=== PATIENT | female | born 1950 | race Caucasian/White ===

== ENCOUNTER 2019-05-03 16:07 | Emergency (ER) | payer MEDICARE, OTHER, SELFPAY ==
[2019-05-03] VITALS (8 sets, daily range): BP systolic 141–188; BP diastolic 75–102; PULSE 55–79; RESP 18–20; TEMP 36.7; O2SAT 91–96
--- NOTE | ~2019-05-03 | XR_ITS ---
EXAMINATION: XR chest 1V portable DATE: 05/03/2019 16:32 INDICATION: Analyzed chest pain with pain across the back. TECHNIQUE: frontal view of the chest was obtained. COMPARISON: Chest radiograph dated 11/24/[address] dated 10/19/2017 FINDINGS: Patient is rotated slightly towards the right. Unchanged mild linear lingular discoid atelectasis/sca rring at the left lower lung zone. No new airspace opacities, pulmonary edema, pleural effusion or pn eumothorax. The cardiomediastinal silhouette is normal. Mild bilateral acromioclavicular osteoarthrit is. IMPRESSION: 1. Chronic mild lingular atelectasis/scarring. Reviewed, dictated and finalized at location A. 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
--- NOTE | 2019-05-03 16:21 | ECG_ITS ---
Measurements Intervals [place] Rate: 56 P: 63 VT: 156 QRS: 57 QRSD: 104 T: 57 QT: 423 QTc: 408 Interpretive Statements SINUS BRADYCARDIA BASELINE ARTIFACT- I, II, III, AVR, AVL, AVF, V1 BORDERLINE ECG Electronically Signed On 05-03-2019 17:06:10 [employer] SHOP MECHANIC by Leonard Van D.O.
[2019-05-03 16:42] LABS: Basophils Absolute Auto 0.01 K/mm3 (0.00-0.10); Basophils Percent Auto 0.3 % (0.0-1.0); Eosinophils Absolute Auto 0.14 K/mm3 (0.02-0.50); Eosinophils Percent Auto 3.9 % (1.0-6.0); Hemoglobin 10.5 g/dL (11.7-13.8); Immature Granulocyte Absolute 0.01 K/mm3 (0.00-0.00); Immature Granulocyte Percent A 0.3 % (0.0-0.0); Lymphocytes Absolute Auto 0.94 K/mm3 (1.10-4.50); Lymphocytes Percent Auto 26.4 % (18.0-42.0); Mean Corpuscular HGB Conc 30.9 g/dL (32.0-36.0); Mean Corpuscular Hemoglobin 25.5 pg (27.0-31.0); Mean Corpuscular Volume 82.5 fL (78.0-102.0); Mean Platelet Volume 10.9 fl (9.2-11.8); Monocytes Absolute Auto 0.31 K/mm3 (0.10-0.90); Monocytes Percent Auto 8.7 % (2.0-11.0); Neutrophils Absolute Auto 2.2 K/mm3 (1.7-7.2); Neutrophils Percent Auto 60.4 % (50.0-70.0); Platelet Count Result 187 K/mm3 (150-420); Red Blood Count 4.12 M/mm3 (4.20-5.40); Red Cell Distribution Width 15.1 % (11.6-14.4); White Blood Count 3.6 K/mm3 (4.8-10.8)
[2019-05-03 16:53] LABS: Partial Thromboplastin Time 26.6 SEC (22.3-31.6)
[2019-05-03 16:58] LABS: Alanine Aminotransferase 10 U/L (14-59); Albumin Level 3.5 g/dL (3.4-5.0); Alkaline Phosphatase 99 U/L (46-116); Aspartate Amino Transferase 14 U/L (15-37); Bilirubin,Total 0.1 mg/dL (0.00-1.00); Blood Urea Nitrogen 14 mg/dL (7-18); Calcium 8.6 mg/dL (8.5-10.1); Carbon Dioxide 29 mmol/L (21-32); Chloride 104 mmol/L (98-108); Estimated Glomerular Filt Rate 40; Glucose 95 mg/dL (70-99); Osmolality Calculated 294 mOsm/kg (285-295); Sodium 142 mmol/L (136-145); Total Protein 7.9 g/dL (6.4-8.2)
[2019-05-03] MEDS: ASPIRIN 81 MG CHEWABLE TABLET 324 MG PO (17:02)
--- NOTE | 2019-05-03 17:11 | ED.CHESTPAIN ---
HPI - Chest Pain General Chief Complaint: Chest Pain Stated Complaint: headache, chest pain,pain across back Time Seen by Provider: 05/03/19 16:40 Source: patient Mode of arrival: ambulatory Limitations: no limitations History of Present Illness HPI narrative: Claudia is a 70-year-old female patient. She presents ambulatory to the emergency room. She states that she has had substernal chest pain since 3:30 p.m.. The pain radiates to the back and to the left shoulder. She describes it as a pressure type of pain. She rates the pain at 7/10. She has history of hypertension. She has no history of previous NM. No history of stroke in the past. She does not have diabetes mellitus. She is not a smoker. No history of cough or fever. No history of nausea vomiting diarrhea. No history abdominal pain. MD complaint: chest pain Pertinent past history: other ( Hypertension) Onset (ago): hour(s) ( started at 3:30 p.m.) Timing of current episode: constant and still present Onset: during rest Pain location: substernal Pain radiation: left shoulder and other ( radiates to the back also) Severity: moderate Pain scale (0-10): 7 Quality: other ( feeling of pressure) Relieving factors: nothing Exacerbating factors: nothing Context: other ( none) Associated symptoms: other ( no history of fever. No history of nausea or vomiting. No abdominal pain. No cough.) Treatment prior to arrival: none Risk Factors Coronary artery disease risk factors: hypertension Thoracic aortic dissection risk factors: longstanding hypertension Related Data Home Medications Medication Instructions Recorded Confirmed alprazolam 1 mg PO PRN PRN 02/27/19 02/27/19 cholestyramine (with sugar) 4 g PO DAILY 02/27/19 02/27/19 doxazosin 8 mg PO DAILY 02/27/19 02/27/19 furosemide 40 mg PO DAILY 02/27/19 02/27/19 lisinopril 40 mg PO DAILY 02/27/19 02/27/19 metoprolol tartrate 100 mg PO BID 02/27/19 02/27/19 nortriptyline 25 mg PO DAILY 02/27/19 02/27/19 omeprazole 20 mg PO DAILY 02/27/19 02/27/19 trazodone 100 mg PO HS 02/27/19 02/27/19 aspirin 81 mg PO DAILY 05/03/19 05/03/19 Allergies Allergy/AdvReac Type Severity Reaction Status Date / Time prednisone AdvReac Mild Jittery Verified 10/19/17 03:54 duloxetine AdvReac Unknown Diarrhea Verified 10/19/17 03:54 Penicillins AdvReac Unknown Verified 10/19/17 03:54 rosuvastatin AdvReac Unknown Muscle Verified 10/19/17 03:54 Spasms all steriods Allergy Unknown Uncoded 09/01/16 20:07 ATORVASTATIN CALCIUM AdvReac Unknown Muscle Uncoded 10/19/17 03:54 Spasms Review of Systems Review of Systems: All systems reviewed & are unremarkable except as noted in HPI and below Constitutional: Constitutional: Reports as per HPI, Reports no additional constitutional complaints, Denies chills and Denies fever(s) Eyes: Eyes: Reports as per HPI, Reports no additional eye complaints and Denies photophobia ENT: Reports system reviewed and no additional complaints, except as documented, Denies dysphagia, Denies vertigo, Denies dizziness, Denies nasal congestion and Denies sore throat Cardiovascular: Cardiovascular: Reports as per HPI, Reports chest pain and Reports radiating jaw, neck or arm pain Respiratory: Respiratory: Reports as per HPI, Denies cough and Denies dyspnea Gastrointestinal: Gastrointestinal: Reports as per HPI, Denies abdominal pain, Denies diarrhea, Denies nausea and Denies vomiting Genitourinary: Genitourinary: Reports no additional female genitourinary complaints, Denies hematuria and Denies dysuria Musculoskeletal: Musculoskeletal: Reports no additional musculoskeletal complaints Comments: no back pain as such. The chest pain radiates to the Integumentary/Breasts: Skin/Breast: Reports system reviewed and no additional complaints, except as docu, Denies erythema and Denies rash Neurologic: Reports system reviewed and no additional complaints, except as documented, Denies vertigo, Denies dizziness, Denies s
[2019-05-03] MEDS: NITROGLYCERIN SL 0.4 MG TABLET SUBLINGUAL (17:12)
--- NOTE | 2019-05-03 17:12 | PC.NURSE ---
BP 161/91, HR 62, CP 6/10. NTG SL given now.
--- NOTE | 2019-05-03 17:15 | PC.NURSE ---
In to re-eval pt prior to second NTG tab admin. Pt states she now has chest tightness in the L lower chest/breast, dizziness, and TANG. BP repeated with decrease from 161/91 to 135/83. Dr Tracey aware. Additional NTG held at this time.
[2019-05-03 17:20] LABS: Prothrombin Time 10.4 Seconds (9.64-11.0)
[2019-05-03 17:21] LABS: Creatine Kinase 65 U/L (26-192)
[2019-05-03 17:22] LABS: Troponin I < 0.02 ng/mL (0.00-0.056)
--- NOTE | 2019-05-03 18:12 | PC.NURSE ---
Dr Tracey in to speak with pt re: plan for repeat troponin in 2 hours. Pt verbalizes understanding, requesting food at this time. Dinner tray ordered.
--- NOTE | 2019-05-03 18:23 | PC.NURSE ---
Pt currently pain free. Dinner tray provided.
--- NOTE | 2019-05-03 19:51 | PC.NURSE ---
Pt amb to bathroom and back to room with steady gait. Repeat troponin drawn by labor operator. Pt remains pain free at this time.
[2019-05-03 20:14] LABS: Troponin I < 0.02 ng/mL (0.00-0.056)
== END 2019-05-03 20:45 | disposition home or self-care (01) ==
PROVIDERS: Emergency Provider Surgery; PCP Family Medicine Adolescent Medicine
DX: R07.9 Chest pain, unspecified (principal); J44.9 Chronic obstructive pulmonary disease, unspecified; M19.90 Unspecified osteoarthritis, unspecified site; K21.9 Gastro-esophageal reflux disease without esophagitis; I10 Essential (primary) hypertension
CPT/HCPCS: 36415; 71045; 80053; 82550; 82553; 84484; 85025; 85610; 85730; 93005; 99284; A9270

== ENCOUNTER 2019-09-07 13:11 | Outpatient (CLI) | payer MEDICARE, OTHER, SELFPAY ==
--- NOTE | ~2019-09-07 | XR_ITS ---
EXAMINATION: XR hip BI 2V w AP pelvis DATE: 09/07/2019 13:54 INDICATION: Unspecified osteoarthritis, unspecified site. TECHNIQUE: An anteroposterior view of the pelvis and 2 views of each hip were obtained. COMPARISON: CT abdomen and pelvis 10/19/2017 FINDINGS: Bone alignment is normal. No fracture. There is severe right hip osteoarthritis and moderat e left hip osteoarthritis. There is severe lumbar spondylosis. A surgical clip overlies right abdomen . IMPRESSION: 1. Severe right hip osteoarthritis and moderate left hip osteoarthritis. Reviewed, dictated and finalized at location E.
--- NOTE | ~2019-09-07 | XR_ITS ---
EXAMINATION: XR knee LT 3V DATE: 09/07/2019 13:54 INDICATION: Unspecified osteoarthritis, unspecified site. TECHNIQUE: 3 views of left knee were obtained. COMPARISON: Left knee radiographs 12/24/2007 FINDINGS: Bone alignment is normal. No fracture. There is mild tricompartmental osteoarthritis. No kn ee joint effusion. IMPRESSION: 1. Mild left knee osteoarthritis. Reviewed, dictated and finalized at location E.
--- NOTE | ~2019-09-07 | XR_ITS ---
EXAMINATION: XR foot LT standing 2V EXAM DATE: 09/07/2019 13:54 INDICATION: Osteoarthritis. TECHNIQUE: Frontal and lateral projections of the left foot. There is no prior study for comparison . Correlation was made with contralateral foot same date. FINDINGS: There is mild left hallux valgus. There is mild polyarticular midfoot primary osteoarthrit is. There are no bony erosions identified. There are no acute fractures or dislocations identified. There is no subcutaneous gas. The soft tissue is unremarkable. There are no radiopaque foreign isaias dies. IMPRESSION: 1. Mild polyarticular midfoot osteoarthritis. 2. Mild left hallux valgus. Reviewed, dictated and finalized at location A.
--- NOTE | ~2019-09-07 | XR_ITS ---
EXAMINATION: XR foot RT standing 2V EXAM DATE: 09/07/2019 13:54 INDICATION: Osteoarthritis. TECHNIQUE: Frontal and lateral projections of the right foot. Comparison is made to prior examinatio n from 08/20/2017. FINDINGS: Mild right hallux valgus. There is mild polyarticular midfoot primary osteoarthritis. Ther e are no bony erosions identified. There are no acute fractures or dislocations identified. There is no subcutaneous gas. The soft tissue is unremarkable. There are no radiopaque foreign bodies. IMPRESSION: 1. Mild right mid foot polyarticular osteoarthritis. 2. Mild hallux valgus. Reviewed, dictated and finalized at location A.
--- NOTE | ~2019-09-07 | XR_ITS ---
EXAMINATION: XR hand BI arthritis min 3V EXAM DATE: 09/07/2019 13:54 INDICATION: Osteoarthritis. TECHNIQUE: Right hand frontal, lateral and oblique projections obtained and reviewed. Left hand fron nicole, lateral and oblique projections obtained and reviewed. Catchers projection of both hands. There is no prior study for comparison. FINDINGS: Right hand: There is mild 1st interphalangeal, 2nd distal interphalangeal primary osteoarthritis. Th ere are no bony erosions identified. There are no acute fractures or dislocations identified. There is no subcutaneous gas. The soft tissue is unremarkable. There are no radiopaque foreign bodies. Left hand: There is mild 1st interphalangeal primary osteoarthritis. There are no bony erosions iden tified. There are no acute fractures or dislocations identified. There is no subcutaneous gas. The soft tissue is unremarkable. There are no radiopaque foreign bodies. IMPRESSION: Mild interphalangeal osteoarthritis. Reviewed, dictated and finalized at location A.
--- NOTE | ~2019-09-07 | XR_ITS ---
EXAMINATION: XR knee RT 3V DATE: 09/07/2019 13:54 INDICATION: Unspecified osteoarthritis, unspecified site. TECHNIQUE: 3 views of right knee were obtained. COMPARISON: Right knee radiographs 11/19/2018 FINDINGS: There is lateral subluxation of patella. No fracture. There is mild osteoarthritis of media l and lateral compartments and moderate osteoarthritis of patellofemoral compartment. There is a mode rate-sized knee joint effusion. IMPRESSION: 1. Moderate right knee osteoarthritis. 2. Moderate-sized right knee joint effusion. Reviewed, dictated and finalized at location E.
[2019-09-07 14:33] LABS: Alanine Aminotransferase 10 U/L (4-35); Albumin Level 4.3 g/dL (3.5-5.1); Alkaline Phosphatase 115 U/L (38-126); Aspartate Amino Transferase 26 U/L (14-36); Bilirubin,Total 0.3 mg/dL (0.2-1.3); Blood Urea Nitrogen 17 mg/dL (7-17); CRP 1.3 mg/dL (<1.0); Calcium 8.4 mg/dL (8.4-10.2); Carbon Dioxide 33 mmol/L (22-30); Chloride 97 mmol/L (98-107); Estimated Glomerular Filt Rate 49; Glucose 105 mg/dL (65-105); Potassium 3.4 mmol/L (3.4-5.0); Sodium 139 mmol/L (137-145); Uric Acid 7.7 mg/dL (2.5-7.5)
[2019-09-07 14:34] LABS: Rheumatoid Factor < 8.6 IU/ML (<12)
[2019-09-07 14:35] LABS: Basophils Percent Auto 0.5 % (0.2-1.2); Eosinophils Absolute Auto 0.1 K/mm3 (0-0.3); Eosinophils Percent Auto 2.9 % (0-4.4); Hematocrit 34.9 % (37.0-47.0); Hemoglobin 10.9 g/dL (12.0-15.0); Immature Granulocyte Absolute 0.01 K/mm3 (0.00-0.031); Immature Granulocyte Percent A 0.2 % (0-0.5); Lymphocytes Absolute Auto 1.26 K/mm3 (0.9-3.2); Lymphocytes Percent Auto 30.7 % (18.3-44.2); Mean Corpuscular HGB Conc 31.2 g/dl (32-36); Mean Corpuscular Hemoglobin 26.4 pg (26-34); Mean Corpuscular Volume 84.5 fl (80-100); Mean Platelet Volume 10.6 fl (7.4-10.4); Monocytes Absolute Auto 0.3 K/mm3 (0.1-0.6); Monocytes Percent Auto 6.8 % (2.6-8.5); Neutrophils Absolute Auto 2.4 K/mm3 (1.3-6.7); Neutrophils Percent Auto 58.9 % (45.5-73.1); Platelet Count Result 178 k/mm3 (150-375); Red Blood Count 4.13 M/mm3 (4.2-5.4); Red Cell Distribution Width 13.7 % (11.5-14.5); White Blood Count 4.1 K/mm3 (4.5-10.0)
[2019-09-07 14:40] LABS: Add Urine Microscopic? YES; Appearance Urine Clear (Clear); Bacteria Urine Trace /hpf; Bilirubin Urine Negative (Negative); Blood Urine Negative (Negative); Color Urine Straw (Yellow); Glucose Urine UA Negative (Negative); Ketones Urine Negative (Negative); Leukocyte Esterase Ur 2+ LEU/UL (Negative); Mucus Urine Rare /lpf; Nitrate Urine Negative (Negative); Protein Urine Negative (Negative); RBC Urine 0-2 /hpf (0-2); Specific Grav Ur 1.012 (1.001-1.035); Squamous Epithelial Cell Urine Moderate /hpf (Few); Urobilinogen Urine Negative mg/dL (<2.0)
[2019-09-07 15:36] LABS: Erythrocyte Sedimentation Rate 119 mm/hr (0-20)
[2019-09-10 09:23] LABS: ANA Cascade Screen Negative (Negative)
[2019-09-10 22:18] LABS: Anti Cyclic Citrullinated Pept <16 Units (<20)
== END 2019-09-07 13:12 | disposition home or self-care (01) ==
PROVIDERS: PCP Family Medicine Adolescent Medicine; Visit Provider Internal Medicine
DX: M20.12 Hallux valgus (acquired), left foot (principal); M19.071 Primary osteoarthritis, right ankle and foot; M20.11 Hallux valgus (acquired), right foot; M19.072 Primary osteoarthritis, left ankle and foot; M19.042 Primary osteoarthritis, left hand; M19.041 Primary osteoarthritis, right hand; M16.11 Unilateral primary osteoarthritis, right hip; M17.0 Bilateral primary osteoarthritis of knee
CPT/HCPCS: 36415; 73130; 73521; 73562; 73620; 80053; 81001; 84550; 85025; 85652; 86038; 86140; 86200; 86430; 87077; 87086; 87088; 87186

== ENCOUNTER 2019-12-04 09:43 | Emergency (ER) | payer MEDICARE, OTHER, SELFPAY ==
--- NOTE | ~2019-12-04 | XR_ITS ---
EXAMINATION: XR chest 2V DATE: 12/04/2019 10:17 INDICATION: Chest pain and pressure TECHNIQUE: AP and lateral views of the chest are obtained. COMPARISON: 05/03/2019 FINDINGS: The lungs are free of acute opacities. There is no pleural effusion or pneumothorax. The he art size is upper limits of normal for technique. There is moderate thoracic spondylosis. IMPRESSION: 1. No acute cardiopulmonary abnormality. Reviewed, dictated and finalized at location A.
[2019-12-04 09:45] VITALS: TEMP 36.4
--- NOTE | 2019-12-04 09:57 | ECG_ITS ---
Measurements Intervals [place] Rate: 72 P: 26 NH: 166 QRS: 35 QRSD: 105 T: 37 QT: 391 QTc: 430 Interpretive Statements SINUS RHYTHM BASELINE ARTIFACT- I, II, III, AVL, AVF, V1-V2 NORMAL ECG Electronically Signed On 12-04-2019 11:11:01 CDT by Leonard Van D.O.
--- NOTE | 2019-12-04 09:57 | ED.CHESTPAIN ---
HPI - Chest Pain General Chief Complaint: Chest Pain Stated Complaint: Chest pressure Time Seen by Provider: 12/04/19 09:57 Source: patient Mode of arrival: EMS Limitations: no limitations History of Present Illness HPI narrative: Patient is a 69-year-old female with history of hypertension, obstructive sleep apnea who presents for evaluation of chest pain. Patient states chest pain was noticed this morning when she awakened from sleep, initially she attributed to her CPAP machine, but states that her oxygen level was appropriate. Patient does sleep with CPAP and bleed in oxygen. Patient reports a chest pressure over the center of her chest. No radiation to the back, jaw or arm. Patient states pain lasted approximately 30 to 40 minutes before resolving on its own. Patient denies any history of heart attack. No current pain, shortness of breath, nausea or diaphoresis. No ripping or tearing sensation to the flanks. Related Data Home Medications Medication Instructions Recorded Confirmed alprazolam 0.5 mg PO 6XD PRN 02/27/19 09/28/19 cholestyramine (with sugar) 4 g PO DAILY 02/27/19 09/28/19 doxazosin 8 mg PO DAILY 02/27/19 09/28/19 furosemide 40 mg PO DAILY 02/27/19 09/28/19 lisinopril 40 mg PO DAILY 02/27/19 09/28/19 metoprolol tartrate 100 mg PO BID 02/27/19 09/28/19 nortriptyline 25 mg PO HS 02/27/19 09/28/19 omeprazole 20 mg PO BID 02/27/19 09/28/19 trazodone 100 mg PO BID 02/27/19 09/28/19 aspirin 81 mg PO DAILY 05/03/19 09/28/19 Allergies Allergy/AdvReac Type Severity Reaction Status Date / Time prednisone AdvReac Mild Jittery Verified 12/04/19 09:52 duloxetine AdvReac Unknown Diarrhea Verified 12/04/19 09:52 Penicillins AdvReac Unknown Itching Verified 12/04/19 09:52 rosuvastatin AdvReac Unknown Muscle Verified 12/04/19 09:52 Spasms all steriods Allergy Unknown aggression Uncoded 12/04/19 09:52 ATORVASTATIN CALCIUM AdvReac Unknown Muscle Uncoded 12/04/19 09:52 Spasms Review of Systems Review of Systems: Narrative: CONSTITUTIONAL: Denies fever, chills, or sweats. EYES: Denies visual changes, redness, or discharge. ENT: Denies rhinorrhea, congestion, sore throat, or otalgia. CARDIOVASCULAR: Denies current chest pain, palpitations, or edema. RESPIRATORY: Denies cough or dyspnea. GASTROINTESTINAL: Denies abdominal pain, nausea, vomiting, or diarrhea. GENITOURINARY: Denies dysuria or hematuria. SKIN: Denies rash or itching. MUSCULOSKELETAL: Denies back pain, joint pain, or myalgia. NEUROLOGIC: Denies headache, numbness, or weakness. PSYCHIATRIC: Patient reports some anxiety regarding the chest pain this morning PMFSH Past Medical History Medical History Anxiety Arthritis COPD (chronic obstructive pulmonary disease) Depression ESR raised (~08/2019) GERD (gastroesophageal reflux disease) HTN (hypertension) Inflammatory arthritis Migraines Surgical History Surgical History History of back surgery History of colon resection History of colostomy Hx of cholecystectomy Status post colostomy takedown Family History Family History Mother Heart disease Hypertension Father Acute myocardial infarction Social History Social History Smoking status: Never smoker Alcohol intake: never Gender identity (if verbalized by the patient): Female Exam Narrative: Exam Narrative: GENERAL: Awake, alert, conversant HEAD: Normocephalic, atraumatic. EYES: PERRLA and EOMI. ENT: Nares clear, no rhinorrhea or epistaxis. Mucous membranes moist. NECK: Supple. CHEST: No respiratory distress, breathing even and non labored, no reproducible chest wall pain HEART: Regular rate, sinus rhythm ABDOMEN: Obese, non distended, non tender EXTREMITIES: Normal range of motion. No edema. SKIN: Warm, dry, no
--- NOTE | 2019-12-04 10:16 | PC.NURSE ---
Pt to xray
[2019-12-04 10:41] LABS: Basophils Percent Auto 0.2 % (0.2-1.2); Eosinophils Absolute Auto 0.2 K/mm3 (0-0.3); Eosinophils Percent Auto 3.6 % (0-4.4); Hematocrit 38.4 % (37.0-47.0); Hemoglobin 11.8 g/dL (12.0-15.0); Immature Granulocyte Absolute 0.01 K/mm3 (0.00-0.031); Immature Granulocyte Percent A 0.2 % (0-0.5); Lymphocytes Absolute Auto 0.81 K/mm3 (0.9-3.2); Lymphocytes Percent Auto 19.6 % (18.3-44.2); Mean Corpuscular HGB Conc 30.7 g/dl (32-36); Mean Corpuscular Hemoglobin 25.8 pg (26-34); Mean Platelet Volume 10.8 fl (7.4-10.4); Monocytes Absolute Auto 0.3 K/mm3 (0.1-0.6); Monocytes Percent Auto 7.5 % (2.6-8.5); Neutrophils Absolute Auto 2.9 K/mm3 (1.3-6.7); Neutrophils Percent Auto 68.9 % (45.5-73.1); Platelet Count Result 176 k/mm3 (150-375); Red Blood Count 4.57 M/mm3 (4.2-5.4); Red Cell Distribution Width 14.3 % (11.5-14.5); White Blood Count 4.1 K/mm3 (4.5-10.0)
[2019-12-04 10:57] LABS: Prothrombin Time 12.9 Seconds (11.1-14.7)
[2019-12-04 10:58] LABS: Partial Thromboplastin Time 26.5 SECONDS (22.3-36.8)
[2019-12-04 11:04] LABS: Anion Gap 7 mmol/L (8-16); Blood Urea Nitrogen 25 mg/dL (7-17); Calcium 8.9 mg/dL (8.4-10.2); Carbon Dioxide 30 mmol/L (22-30); Chloride 102 mmol/L (98-107); Estimated CRCL calculation 41 ml/min; Estimated Glomerular Filt Rate 37; Glucose 121 mg/dL (65-105); Sodium 139 mmol/L (137-145)
[2019-12-04 11:10] LABS: Troponin I < 0.012 ng/mL (0.000-0.034)
[2019-12-04 11:40] LABS: Potassium 4.2 mmol/L (3.4-5.0)
[2019-12-04 12:10] VITALS: BP 141/79; PULSE 75; RESP 20; O2SAT 97
[2019-12-04 13:38] LABS: Troponin I < 0.012 ng/mL (0.000-0.034)
[2019-12-04 14:13] VITALS: BP 133/86; PULSE 80; RESP 97; O2SAT 97
== END 2019-12-04 14:16 | disposition home or self-care (01) ==
PROVIDERS: Emergency Provider Emergency Medicine; PCP Family Medicine Adolescent Medicine
DX: R07.89 Other chest pain (principal); I10 Essential (primary) hypertension; G47.33 Obstructive sleep apnea (adult) (pediatric); M19.90 Unspecified osteoarthritis, unspecified site; F41.9 Anxiety disorder, unspecified; F32.9 Major depressive disorder, single episode, unspecified; Z90.49 Acquired absence of other specified parts of digestive tract
CPT/HCPCS: 36415; 71046; 80048; 84484; 85025; 85610; 85730; 93005; 99284

== ENCOUNTER 2020-01-04 14:16 | Emergency (ER) | payer MEDICARE, OTHER, SELFPAY ==
--- NOTE | ~2020-01-04 | XR_ITS ---
EXAMINATION: XR knee RT 3V EXAM DATE: 01/04/2020 15:14 INDICATION: Initial encounter following injury, with pain of the right knee. TECHNIQUE: Three projections of the right knee. Comparison is made to prior examination from 09/07/2019 . FINDINGS: No evidence osteochondral defect or joint body in the right knee joint. There is moderate patellofemoral, mild to moderate tibiofemoral primary osteoarthritis. No sizable joint effusion. Th ere are no acute fractures identified. No radiopaque foreign bodies identified. IMPRESSION: No acute findings. Reviewed, dictated and finalized at location B. IMPRESSION: No acute findings.
--- NOTE | 2020-01-04 14:24 | ED.LOWEXIN ---
HPI - Extremity Injury (Lower) General Chief Complaint: Extremity Injury, Lower Stated Complaint: injury to right knee after fall one week ago Time Seen by Provider: 01/04/20 14:24 Source: patient and RN notes reviewed Mode of arrival: ambulatory History of Present Illness HPI Narrative: Patient states she was getting out of her car at a local store. She says that she lost her balance fell onto her knee may be twisted it. Continues to have pain. She is walking on it but it hurts to walk on. She had no other injuries. MD complaint: knee injury Onset (ago): week(s) (1) Place: home Severity: moderate Exacerbating factors: weight bearing and movement Context: fall Other symptoms: none Related Data Home Medications Medication Instructions Recorded Confirmed alprazolam 0.5 mg PO 6XD PRN 02/27/19 01/04/20 cholestyramine (with sugar) 4 g PO DAILY 02/27/19 01/04/20 doxazosin 8 mg PO DAILY 02/27/19 01/04/20 furosemide 40 mg PO DAILY 02/27/19 01/04/20 lisinopril 40 mg PO DAILY 02/27/19 01/04/20 metoprolol tartrate 100 mg PO BID 02/27/19 01/04/20 nortriptyline 25 mg PO HS 02/27/19 01/04/20 omeprazole 20 mg PO BID 02/27/19 01/04/20 trazodone 100 mg PO BID 02/27/19 01/04/20 diphenoxylate-atropine 1 - 2 tablet PO QID PRN 01/04/20 01/04/20 Allergies Allergy/AdvReac Type Severity Reaction Status Date / Time prednisone AdvReac Mild Jittery Verified 12/04/19 09:52 duloxetine AdvReac Unknown Diarrhea Verified 12/04/19 09:52 Penicillins AdvReac Unknown Itching Verified 12/04/19 09:52 rosuvastatin AdvReac Unknown Muscle Verified 12/04/19 09:52 Spasms all steriods Allergy Unknown aggression Uncoded 12/04/19 09:52 ATORVASTATIN CALCIUM AdvReac Unknown Muscle Uncoded 12/04/19 09:52 Spasms Review of Systems Review of Systems: All systems reviewed & are unremarkable except as noted in HPI and below PMFSH Past Medical History Medical History Anxiety Arthritis COPD (chronic obstructive pulmonary disease) Depression ESR raised (~08/2019) GERD (gastroesophageal reflux disease) HTN (hypertension) Inflammatory arthritis Migraines Surgical History Surgical History History of back surgery History of colon resection History of colostomy Hx of cholecystectomy Status post colostomy takedown Family History Family History Mother Heart disease Hypertension Father Acute myocardial infarction Social History Social History Smoking status: Never smoker Alcohol intake: never Gender identity (if verbalized by the patient): Female Exam Const: General: healthy appearing and no acute distress Nutritional Appearance: well nourished and obese morbidly obese Orientation/consciousness: patient oriented x3 HENMT: Head: normal to inspection Ears: external ears normal Eyes: Conjunctivae: conjunctivae normal Pupils: Equal, round and reactive pupils present EOM: EOMs intact bilaterally Neck: Neck: normal visual inspection Resp: Effort & Inspection: normal respiratory effort Auscultation: clear to auscultation bilaterally Cardio: Rate: regular rate Rhythm: regular rhythm GI: GI Palp: Yes Soft to palpation and No Tenderness to palpation present (GI) Auscultation: normal bowel sounds Back/Spine/Pelvis: Cervical Spine: cervical ROM normal Thoracic/Lumbar Spine: thoraco-lumbar ROM normal Skin: General skin exam: normal color Wounds: wounds noted left lower leg other ( Ecchymosis on left proximal lower leg medially) Neuro: General: patient oriented x3, moves all extremities and no focal motor deficits Speech: normal speech Gait exam (Neuro): Normal gait present Extrem: Right lower extremity: knee Details: tenderness (Moderate) Location: of the medial joint line and of the lateral joint line; not of the late
[2020-01-04 14:31] VITALS: BP 150/87; PULSE 78; RESP 18; TEMP 36.6; O2SAT 93
== END 2020-01-04 15:31 | disposition home or self-care (01) ==
PROVIDERS: Emergency Provider Emergency Medicine; PCP Family Medicine Adolescent Medicine
DX: S86.911A Strain of unspecified muscle(s) and tendon(s) at lower leg level, right leg, initial encounter (principal); W19.XXXA Unspecified fall, initial encounter
CPT/HCPCS: 73562; 99282; 99283

== ENCOUNTER → 2020-06-07 15:33 | Outpatient (CLI) | payer MEDICARE, OTHER, SELFPAY ==
--- NOTE | ~2020-06-07 | MR_ITS ---
EXAMINATION: MR knee RT wo con DATE: 06/07/2020 16:56 INDICATION: Right knee pain. TECHNIQUE: Magnetic resonance imaging (MRI) of the right knee was performed without intravenous contr ast. Sequences included axial PD-weighted FS FSE, coronal PD-weighted FSE and PD-weighted FS FSE, sag ittal PD-weighted FSE, and sagittal T2-weighted FS FSE. COMPARISON: None. FINDINGS: Medial compartment: There is a complex tear of body and posterior horn of medial meniscus. There is partial-thickness car tilage loss of femoral condyle, deep at the central and posterior articular surface. There is partial -thickness cartilage loss of tibial condyle, deep at the medial articular surface. Marginal osteophyt es are noted. Lateral compartment: There is an undersurface horizontal tear of body of lateral meniscus. There is shallow partial-thickn ess cartilage loss of tibial condyle, worst at the central articular surface. There is shallow partia l-thickness cartilage loss of femoral condyle, worst at the central articular surface. Osteophytes ar e noted. Patellofemoral compartment: There is full-thickness cartilage loss of patellar medial ridge and lateral facet with moderate subch ondral edema-like marrow signal intensity. There is deep partial thickness cartilage loss of patellar medial facet. There is full-thickness cartilage loss of lateral trochlea with moderate subchondral e elvi. There is partial-thickness cartilage loss of central and medial trochlea. Osteophytes are noted . Ligaments and tendons: Anteroposterior cruciate ligaments are normal. There are changes of prior sprains of medial collatera l ligament and fibular collateral ligament characterized by thickening and increased signal intensity proximally. There is mild patellar tendinopathy. Fluid: There is a moderate-sized knee joint effusion. There is a small Spence's cyst. Osseous/other: There is increased T2-weighted signal intensity in the proximal tibia posteriorly abutting the distal attachment of posterior cruciate ligament, likely degenerative. IMPRESSION: 1. Severe chondrosis of patellofemoral compartment, moderate chondrosis of medial compartment, and mi ld chondrosis of lateral compartment. 2. Tears of medial and lateral menisci. 3. Moderate-sized knee joint effusion. Reviewed, dictated and finalized at location A. 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 Severe chondrosis of patellofemoral compartment, moderate chondrosis of medi al compartment, and mild chondrosis of lateral compartment. 2. Tears of medial and lateral menisci. 3. Moderate-sized knee joint effusion.
== END ==
PROVIDERS: PCP Family Medicine Adolescent Medicine; Visit Provider Family Medicine Adolescent Medicine
DX: M25.461 Effusion, right knee (principal); S83.241A Other tear of medial meniscus, current injury, right knee, initial encounter; S83.281A Other tear of lateral meniscus, current injury, right knee, initial encounter; X58.XXXA Exposure to other specified factors, initial encounter
CPT/HCPCS: 73721

== ENCOUNTER 2020-09-19 17:11 | Emergency (ER) | payer MEDICARE, OTHER, SELFPAY ==
--- NOTE | ~2020-09-19 | XR_ITS ---
EXAMINATION: XR ankle LT 2V DATE: 09/19/2020 18:08 INDICATION: Left ankle pain. TECHNIQUE: 2 views of left ankle were obtained. COMPARISON: None. FINDINGS: Bone alignment is normal. No fracture. Joint spaces are normal. There is an enthesophyte at plantar aspect of calcaneal tuberosity. There is ankle soft tissue swelling. IMPRESSION: 1. No fracture. Reviewed, dictated and finalized at location A. IMPRESSION: 1. No fracture.
--- NOTE | ~2020-09-19 | XR_ITS ---
EXAMINATION: XR foot LT 2V DATE: 09/19/2020 18:07 INDICATION: Left foot pain and swelling. TECHNIQUE: 2 views of left foot were obtained. COMPARISON: None. FINDINGS: There is moderate hallux valgus. No fracture. There is mild osteoarthritis of first and sec ond metatarsophalangeal joints and some of the interphalangeal joints. There is an enthesophyte at pl jes[address] aspect of calcaneal tuberosity. IMPRESSION: 1. Moderate hallux valgus. 2. Mild polyarticular osteoarthritis. Reviewed, dictated and finalized at location A.
[2020-09-19 17:44] VITALS: BP 160/87; PULSE 76; RESP 20; TEMP 36.9; O2SAT 20
[2020-09-19] MEDS: KETOROLAC 30 MG/ML VIAL (*BKC) IM (18:01)
--- NOTE | 2020-09-19 18:31 | ED.LOWEXIN ---
HPI - Extremity Injury (Lower) General Chief Complaint: Extremity Injury, Lower Stated Complaint: lt foot pain Source: patient and family Mode of arrival: ambulatory Limitations: no limitations History of Present Illness HPI Narrative: this is a 70-year-old female that presents with some right foot and ankle pain with no known injury, apparently the patient had been doing quite a bit of walking the other day causing pain and tenderness in the plantar surface of her right foot and ankle as well. There is no swelling no bruising has good range of motion with no numbness or tingling. MD complaint: foot injury Onset (ago): day(s) Injury: Left: ankle ( overuse) and foot ( overuse) Place: street/outdoors Severity: moderate Severity scale (1-10): 5 Relieving factors: nothing Exacerbating factors: weight bearing and palpation Context: walking Related Data Home Medications Medication Instructions Recorded Confirmed alprazolam 0.5 mg PO 6XD PRN 02/27/19 01/04/20 furosemide 40 mg PO DAILY 02/27/19 01/04/20 lisinopril 40 mg PO DAILY 02/27/19 01/04/20 metoprolol tartrate 100 mg PO BID 02/27/19 01/04/20 nortriptyline 25 mg PO HS 02/27/19 01/04/20 omeprazole 20 mg PO BID 02/27/19 01/04/20 trazodone 100 mg PO BID 02/27/19 01/04/20 L. gasseri-B. bifidum-B longum 1 cap PO DAILY 09/19/20 09/19/20 [Probiotic Colon Support] amlodipine 5 mg PO DAILY 09/19/20 09/19/20 Allergies Allergy/AdvReac Type Severity Reaction Status Date / Time prednisone AdvReac Mild Jittery Verified 09/19/20 17:51 atorvastatin AdvReac Unknown Muscle Verified 09/19/20 18:05 Spasms duloxetine AdvReac Unknown Diarrhea Verified 09/19/20 17:51 Penicillins AdvReac Unknown Itching Verified 09/19/20 17:51 rosuvastatin AdvReac Unknown Muscle Verified 09/19/20 17:51 Spasms all steriods Allergy Unknown aggression Uncoded 09/19/20 17:51 Review of Systems Review of Systems: All systems reviewed & are unremarkable except as noted in HPI and below PMFSH Past Medical History Medical History (Updated 09/19/20 @ 18:38 by Ben Velasquez MD) Anxiety Arthritis COPD (chronic obstructive pulmonary disease) Depression ESR raised (~08/2019) GERD (gastroesophageal reflux disease) HTN (hypertension) Inflammatory arthritis Migraines Surgical History Surgical History History of back surgery History of colon resection History of colostomy Hx of cholecystectomy Status post colostomy takedown Family History Family History Mother Heart disease Hypertension Father Acute myocardial infarction Social History Social History Smoking status: Never smoker Alcohol intake: never Gender identity (if verbalized by the patient): Female Exam Const: General: no acute distress Orientation/consciousness: patient oriented x3 HENMT: Head: normal to inspection Eyes: Conjunctivae: conjunctivae normal Pupils: Equal, round and reactive pupils present EOM: EOMs intact bilaterally Direct Ophthalmoscopy: no photophobia Neck: Neck: normal visual inspection, no lymphadenopathy and no meningeal signs Chest: Chest palpation & inspection: normal inspection of the chest Resp: Effort & Inspection: normal respiratory effort Auscultation: clear to auscultation bilaterally Cardio: Rate: regular rate Rhythm: regular rhythm GI: GI Palp: Yes Soft to palpation Percussion: Yes normal to percussion : General: Yes no CVA tenderness Skin: General skin exam: normal color Rashes: no rashes Neuro: General: patient oriented x3, moves all extremities, no meningeal signs and no focal motor deficits Extrem: Other: Tenderness lateral plantar surface of her left foot with a strong brisk pedal pulse tenderness with palpation to the lateral malleolus of her left ankle with no swelling no bruising has good ran
[2020-09-19 18:41] VITALS: BP 154/86; PULSE 73; RESP 20; TEMP 36.9; O2SAT 93
== END 2020-09-19 18:56 | disposition home or self-care (01) ==
PROVIDERS: Emergency Provider Emergency Medicine; PCP Family Medicine Adolescent Medicine
DX: S93.602A Unspecified sprain of left foot, initial encounter (principal); J44.9 Chronic obstructive pulmonary disease, unspecified; K21.9 Gastro-esophageal reflux disease without esophagitis; I10 Essential (primary) hypertension
CPT/HCPCS: 73600; 73620; 96372; 99283; J1885

== ENCOUNTER 2021-03-14 15:27 | Emergency (ER) | payer MEDICARE, SELFPAY ==
--- NOTE | ~2021-03-14 | XR_ITS ---
XR shoulder RT min 2V 03/14/2021 16:47 INDICATION: Right shoulder pain after fall PROCEDURE: 4 views right shoulder COMPARISON: No prior studies for comparison. FINDINGS: Fracture, dislocation or subluxation is not identified. There is mild polyarticular osteoar thritis of the shoulder. The soft tissues appear within normal limits. No foreign bodies are identif ied. IMPRESSION: 1: NO ACUTE BONE OR JOINT ABNORMALITY IDENTIFIED. Reviewed, dictated and finalized at location A. LIER DIVERSITY DIRECTOR
--- NOTE | ~2021-03-14 | XR_ITS ---
XR femur LT min 2V 03/14/2021 16:48 Indication: Left leg pain Procedure: 2 views left femur Comparison: 09/07/2019 Findings: Mild osteoarthritis of the left hip and knee. Osteopenia. No fracture or traumatic malalign ment. No significant soft tissue abnormality. The left knee is unremarkable. Impression: 1: No acute bone or joint abnormality. Reviewed, dictated and finalized at location A. [employer] CARE SOCIAL WORKER Impression: 1: No acute bone or joint abnormality.
--- NOTE | ~2021-03-14 | XR_ITS ---
XR tibia fibula LT 2V 03/14/2021 16:48 INDICATION: Left leg pain PROCEDURE: 2 views left tibia/fibula COMPARISON: No prior studies for comparison. FINDINGS: Fracture, dislocation or subluxation is not identified. The soft tissues appear within norm al limits. No foreign bodies are identified. IMPRESSION: 1: NO ACUTE BONE OR JOINT ABNORMALITY IDENTIFIED. Reviewed, dictated and finalized at location A. ARCH DIRECTOR
--- NOTE | ~2021-03-14 | CT_ITS ---
EXAMINATION: CT brain wo con DATE: 03/14/2021 16:46 INDICATION: Head injury. TECHNIQUE: Computed tomography (CT) of the head was performed without intravenous contrast. The mA wa s adjusted according to patient size. Iterative reconstruction technique was employed. The dose-lengt h product was 605.33 mGy-cm. COMPARISON: Head CT 10/31/2018, brain MRI 03/14/2015 05/28/2010 FINDINGS: There is an old lacunar infarct in the left lentiform nucleus. There are scattered areas of low attenuation in the cerebral white matter, which is within normal limits for the patient's age. T here is no intracranial hemorrhage, acute infarction, or abnormal intracranial mass lesion. The ventr icles are normal in size. There is mild mucosal thickening in the ethmoid sinuses. There are likely c hanges of left ocular lens replacement surgery. There is a small left mastoid effusion. IMPRESSION: 1. Old lacunar infarct in the left lentiform nucleus. Reviewed, dictated and finalized at location A. ER SETTER
[2021-03-14 15:38] VITALS: BP 148/88; PULSE 82; RESP 18; TEMP 36.2; O2SAT 95
[2021-03-14] MEDS: HYDROcodone/acetaminophen (*CRX) 5-325 MG TABLET 1 TAB PO (16:53)
--- NOTE | 2021-03-14 17:33 | ED.FALL ---
HPI - Fall General Chief Complaint: Fall Stated Complaint: AMB Source: patient Mode of arrival: ambulatory Limitations: no limitations History of Present Illness HPI Narrative: Pt was carrying groceries into the house and fell down. SHe has pain on her head, r shoulder and entire left leg. No LOC MD complaint: fall Fall from: standing Fall witnessed: no Place fall occurred: home Loss of consciousness: none Prolonged down time: no Symptoms prior to fall: none Context: tripped/slipped Location of injury - extremities: Left: thigh and lower leg and Right: shoulder Quality: aching Associated symptoms (after fall): denies Related Data Home Medications Medication Instructions Recorded Confirmed alprazolam 1 mg PO Q4H PRN 02/27/19 09/19/20 furosemide 40 mg PO DAILY 02/27/19 09/19/20 lisinopril 40 mg PO DAILY 02/27/19 09/19/20 metoprolol tartrate 100 mg PO BID 02/27/19 09/19/20 nortriptyline 25 mg PO HS 02/27/19 09/19/20 omeprazole 20 mg PO DAILY 02/27/19 09/19/20 trazodone 100 mg PO BID 02/27/19 09/19/20 L. gasseri-B. bifidum-B longum 1 cap PO DAILY 09/19/20 09/19/20 [Probiotic Colon Support] amlodipine 5 mg PO DAILY 09/19/20 09/19/20 Allergies Allergy/AdvReac Type Severity Reaction Status Date / Time prednisone AdvReac Mild Jittery Verified 09/19/20 17:51 atorvastatin AdvReac Unknown Muscle Verified 09/19/20 18:05 Spasms duloxetine AdvReac Unknown Diarrhea Verified 09/19/20 17:51 Penicillins AdvReac Unknown Itching Verified 09/19/20 17:51 rosuvastatin AdvReac Unknown Muscle Verified 09/19/20 17:51 Spasms all steriods Allergy Unknown aggression Uncoded 09/19/20 17:51 Review of Systems Review of Systems: All systems reviewed & are unremarkable except as noted in HPI and below Constitutional: Constitutional: Reports no additional constitutional complaints Eyes: Eyes: Reports no additional eye complaints ENT: Reports system reviewed and no additional complaints, except as documented Cardiovascular: Cardiovascular: Reports no additional cardiovascular complaints Respiratory: Respiratory: Reports no additional respiratory complaints Gastrointestinal: Gastrointestinal: Reports no additional gastrointestinal complaints Musculoskeletal: Musculoskeletal: Reports myalgias Integumentary/Breasts: Skin/Breast: Reports system reviewed and no additional complaints, except as docu Neurologic: Reports system reviewed and no additional complaints, except as documented Psychiatric: Psychiatric: Reports no additional psychiatric complaints Endocrine: Endocrine: Reports no additional endocrine complaints Hematologic/Lymphatic: Hematologic/Lymphatic: Reports no additional hematologic/lymphatic complaints Allergic/Immunologic: Allergic/Immunologic: Reports no additional allergic/immunologic complaints PMFSH Past Medical History Medical History Anxiety Arthritis COPD (chronic obstructive pulmonary disease) Depression ESR raised (~08/2019) GERD (gastroesophageal reflux disease) HTN (hypertension) Inflammatory arthritis Migraines Surgical History Surgical History History of back surgery History of colon resection History of colostomy Hx of cholecystectomy Status post colostomy takedown Family History Family History Mother Heart disease Hypertension Father Acute myocardial infarction Social History Social History Smoking status: Never smoker Alcohol intake: never Gender identity (if verbalized by the patient): Female Exam Const: General: no acute distress and alert Orientation/consciousness: patient oriented x3 HENMT: Head: normal to inspection Eyes: Conjunctivae: conjunctivae normal Pupils: Equal, round and reactive pupils present Neck: Neck: thomas
== END 2021-03-14 17:53 | disposition home or self-care (01) ==
PROVIDERS: Emergency Provider Emergency Medicine; PCP Family Medicine Adolescent Medicine
DX: S00.93XA Contusion of unspecified part of head, initial encounter (principal); S80.12XA Contusion of left lower leg, initial encounter; S40.011A Contusion of right shoulder, initial encounter; W19.XXXA Unspecified fall, initial encounter; J44.9 Chronic obstructive pulmonary disease, unspecified; K21.9 Gastro-esophageal reflux disease without esophagitis; I10 Essential (primary) hypertension
CPT/HCPCS: 70450; 73030; 73552; 73590; 99282; 99284; A9270

== ENCOUNTER 2021-07-17 13:21 | Emergency (ER) | payer MEDICARE, SELFPAY ==
--- NOTE | ~2021-07-17 | XR_ITS ---
EXAMINATION: XR knee RT 3V DATE: 07/17/2021 16:16 INDICATION: Right knee pain post fall TECHNIQUE: Anteroposterior, oblique and crosstable lateral views of the right knee were obtained COMPARISON: None. FINDINGS: Alignment is normal. No fracture. Small marginal osteophytes in all 3 compartments of the knee. Ther e is mild joint space narrowing the medial compartment and moderate to severe joint space narrowing a t the lateral side of the patellofemoral compartment. There is a loose osteochondral body along the c ephalad margin of the patella. No joint effusion/layering lipohemarthrosis. Soft tissues are unremark able. IMPRESSION: 1. No right knee joint effusion or acute osseous abnormality. 2. Tricompartmental osteoarthritis with patellofemoral predominance where it is moderate to severe. Reviewed, dictated and finalized at location A.
--- NOTE | ~2021-07-17 | XR_ITS ---
EXAMINATION: XR chest 2V DATE: 07/17/2021 15:44 INDICATION: Palpitations. TECHNIQUE: Frontal and lateral views of the chest were obtained. COMPARISON: Chest 2 views 12/04/2019, CT abdomen and pelvis 10/19/2017 FINDINGS: The lung volumes are increased. There are chronic peripheral reticular opacities in the rig ht mid and lower lung zones and left lower lung zone. No pleural effusion or pneumothorax. The heart size is normal. IMPRESSION: 1. Mild chronic lung disease. Reviewed, dictated and finalized at location B.
--- NOTE | ~2021-07-17 | XR_ITS ---
EXAMINATION: XR hip RT min 3V w AP pelvis DATE: 07/17/2021 16:16 INDICATION: Hip pain. Fall. TECHNIQUE: An anteroposterior view of the pelvis and 3 views of right hip were obtained. COMPARISON: Pelvis and hip radiographs 09/07/2019 FINDINGS: Bone alignment is normal. No fracture. There is severe lumbar spondylosis. There is severe right hip osteoarthritis and mild left hip osteoarthritis. Surgical clips overlie right abdomen. IMPRESSION: 1. Severe right hip osteoarthritis and mild left hip osteoarthritis. Reviewed, dictated and finalized at location B.
--- NOTE | ~2021-07-17 | XR_ITS ---
EXAM: XR ankle RT min 3V, XR foot RT min 3V HISTORY: fall,ankle pain COMPARISON: X-ray foot 09/07/2019. FINDINGS: Decreased mineralization. Degenerative changes in the midfoot joints and tibiotalar articu lation. No acute fracture. Presumed old medial malleolus avulsion fracture. Moderate hallux valgus. L arge os navicularis. Mild plantar enthesopathy. IMPRESSION: No acute osseous finding in the right foot or ankle. Reviewed, dictated and finalized at location K. IMPRESSION: No acute osseous finding in the right foot or ankle.
[2021-07-17 13:40] VITALS: BP 118/65; PULSE 69; RESP 18; TEMP 36.6; O2SAT 97
--- NOTE | 2021-07-17 13:49 | ECG_ITS ---
Measurements Intervals Peerless Rate: 59 P: 41 TN: 152 QRS: 39 QRSD: 110 T: 23 QT: 439 QTc: 437 Interpretive Statements SINUS BRADYCARDIA BASELINE ARTIFACT BORDERLINE ECG COMPARED TO ECG 12/04/2019 09:54:15 SINUS BRADYCARDIA NOW PRESENT Electronically Signed On 07-17-2021 15:02:55 CDT by Bairon Castellanos M.D.
--- NOTE | 2021-07-17 15:08 | ED.GENADULT ---
HPI - General Adult General Chief complaint: Unspecified Stated complaint: arrhythmia Time Seen by Provider: 07/17/21 15:07 Source: patient Mode of arrival: ambulatory Limitations: no limitations History of Present Illness HPI narrative: Patient is a 71-year-old female presenting to the emergency department for evaluation of abnormal heart rhythm as reported to her on her at home blood pressure machine. Patient states that she monitors her blood pressure daily, her blood pressure monitor stated that her blood pressure was 110/50 and her heart rate was in the 50s and irregular. This concerned the patient thus prompting her to call her primary care physician who referred her to the emergency department. Patient denies any current chest pain, shortness of breath, palpitations. She denies vision changes, headache, dizziness. She denies shortness of breath. No near syncope or recent syncopal events. Denies fever, chills infectious type. Patient states that she did fall approximately 2 weeks ago after she tripped over 2 steps causing her to land on her right knee and right ankle with mild bruising and pain. Patient states she has had difficulty walking today secondary to the pain. She lives independently. She denies head injury with the fall. She is not on any anticoagulation. She states she has been taking 2 tablets of tramadol daily to help with her pain. Related Data Home Medications Medication Instructions Recorded Confirmed trazodone 100 mg PO BID 02/27/19 06/21/21 Allergies Allergy/AdvReac Type Severity Reaction Status Date / Time prednisone AdvReac Mild Jittery Verified 07/17/21 15:11 atorvastatin AdvReac Unknown Muscle Verified 07/17/21 15:11 Spasms duloxetine AdvReac Unknown Diarrhea Verified 07/17/21 15:11 Penicillins AdvReac Unknown Itching Verified 07/17/21 15:11 rosuvastatin AdvReac Unknown Muscle Verified 07/17/21 15:11 Spasms all steriods Allergy Unknown aggression Uncoded 06/21/21 14:14 Review of Systems Review of Systems: CONSTITUTIONAL: Denies fever, chills, or sweats. EYES: Denies visual changes, redness, or discharge. ENT: Denies rhinorrhea, congestion, sore throat, or otalgia. CARDIOVASCULAR: Denies chest pain, palpitations, or edema. RESPIRATORY: Denies cough or dyspnea. GASTROINTESTINAL: Denies abdominal pain, nausea, vomiting, or diarrhea. GENITOURINARY: Denies dysuria or hematuria. SKIN: Denies rash or itching. MUSCULOSKELETAL: Denies back pain, reports left hip pain, reports right knee pain, right ankle and foot pain NEUROLOGIC: Denies headache, numbness, or weakness. [facility] Past Medical History Medical History Anxiety Arthritis COPD (chronic obstructive pulmonary disease) Depression GERD (gastroesophageal reflux disease) HTN (hypertension) Migraines Normal colonoscopy 04/17 Surgical History Surgical History History of back surgery History of colon resection History of colostomy Hx of cholecystectomy 1996 Status post colostomy takedown Family History Family History Mother Heart disease Hypertension Acute myocardial infarction Diabetes mellitus Father Acute myocardial infarction Heart disease Sibling Breast cancer Diabetes mellitus Social History Social History Smoking status: Former smoker Second hand tobacco smoke exposure: No Smoking end date: 03/31/14 Alcohol intake: never Substance use: never Substance use type: does not use Gender identity (if verbalized by the patient): Female Sexual Orientation (if Verbalized by the Patient): Straight or Heterosexual Spiritual care concerns: No Agree to blood products: Yes Exam Narrative: GENERAL: Awake, alert, conversant HEAD: Normocephalic, atraumatic. EYES: PERRLA and
[2021-07-17 15:10] VITALS: PULSE 65
[2021-07-17 15:34] LABS: Basophils Percent Auto 0.4 % (0.2-1.2); Eosinophils Absolute Auto 0.2 K/mm3 (0-0.3); Eosinophils Percent Auto 4.8 % (0-4.4); Hematocrit 35.8 % (37.0-47.0); Hemoglobin 10.9 g/dL (12.0-15.0); Immature Granulocyte Absolute 0.01 K/mm3 (0.00-0.031); Immature Granulocyte Percent A 0.2 % (0-0.5); Lymphocytes Absolute Auto 1.28 K/mm3 (0.9-3.2); Lymphocytes Percent Auto 25.9 % (18.3-44.2); Mean Corpuscular HGB Conc 30.4 g/dl (32-36); Mean Corpuscular Hemoglobin 26.8 pg (26-34); Mean Platelet Volume 10.6 fl (7.4-10.4); Monocytes Absolute Auto 0.4 K/mm3 (0.1-0.6); Monocytes Percent Auto 7.3 % (2.6-8.5); Neutrophils Percent Auto 61.4 % (45.5-73.1); Platelet Count Result 172 k/mm3 (150-375); Red Blood Count 4.07 M/mm3 (4.2-5.4); Red Cell Distribution Width 14.1 % (11.5-14.5)
[2021-07-17 15:44] LABS: Alanine Aminotransferase 9 U/L (4-35); Albumin Level 4.3 g/dL (3.5-5.1); Alkaline Phosphatase 101 U/L (38-126); Anion Gap 8 mmol/L (8-16); Aspartate Amino Transferase 26 U/L (14-36); Bilirubin,Total 0.1 mg/dL (0.2-1.3); Blood Urea Nitrogen 36 mg/dL (7-17); Calcium 8.7 mg/dL (8.4-10.2); Carbon Dioxide 33 mmol/L (22-30); Chloride 99 mmol/L (98-107); Estimated CRCL calculation 29 ml/min; Estimated Glomerular Filt Rate 30; Glucose 133 mg/dL (65-110); Potassium 3.4 mmol/L (3.4-5.0); Sodium 140 mmol/L (137-145)
[2021-07-17 15:45] LABS: INR 1.2; Partial Thromboplastin Time 29.8 SECONDS (22.3-36.8); Prothrombin Time 14.2 Seconds (11.1-14.7)
[2021-07-17 15:55] LABS: NT Pro B Type Natriuretic Pept 184 pg/mL (5-100); Troponin I < 0.012 ng/mL (0.000-0.034)
[2021-07-17 17:36] LABS: Thyroid Stimulating Hormone Reflex 0.722 uIU/mL (0.465-4.68)
[2021-07-17 17:54] VITALS: BP 111/96; PULSE 67; RESP 18; O2SAT 98
== END 2021-07-17 17:55 | disposition home or self-care (01) ==
PROVIDERS: Emergency Provider Emergency Medicine; PCP Family Medicine Adolescent Medicine
DX: M79.671 Pain in right foot (principal); I12.9 Hypertensive chronic kidney disease with stage 1 through stage 4 chronic kidney disease, or unspecified chronic kidney disease; N18.9 Chronic kidney disease, unspecified; J44.9 Chronic obstructive pulmonary disease, unspecified; K21.9 Gastro-esophageal reflux disease without esophagitis; M19.90 Unspecified osteoarthritis, unspecified site; F41.9 Anxiety disorder, unspecified; F32.A Depression, unspecified; Z90.49 Acquired absence of other specified parts of digestive tract; Z87.891 Personal history of nicotine dependence; M17.11 Unilateral primary osteoarthritis, right knee; M16.0 Bilateral primary osteoarthritis of hip; R00.1 Bradycardia, unspecified
CPT/HCPCS: 36415; 71046; 73502; 73562; 73610; 73630; 80053; 83880; 84443; 84484; 85025; 85610; 85730; 93005; 99284

== ENCOUNTER 2021-09-02 09:39 | Emergency (ER) | payer MEDICARE, SELFPAY ==
--- NOTE | ~2021-09-02 | XR_ITS ---
EXAMINATION: XR shoulder LT min 2V INDICATION: Left shoulder pain TECHNIQUE: Four views of the left shoulder are submitted. COMPARISON: None FINDINGS: Normal alignment. No fracture. There is severe osteoarthritis of the acromioclavicular join t and mild osteoarthritis of the glenohumeral joint. Soft tissues are unremarkable. IMPRESSION: 1. No acute osseous abnormality. Reviewed, dictated and finalized at location A.
--- NOTE | ~2021-09-02 | CT_ITS ---
EXAMINATION: CT cervical spine wo con DATE: 09/02/2021 11:33 INDICATION: Head injury TECHNIQUE: Computed tomography (CT) of the cervical spine was performed without intravenous contrast. The dose-length product (DLP) was 681.00 mGy-cm. Automated exposure control and iterative reconstruc tion technique were employed. COMPARISON: None FINDINGS: There is no fracture. There are 2 mm of anterolisthesis of C7 on T1. The vertebral body hei ghts are maintained. There is moderate loss of intervertebral disc space height at C5-6, C6-7, and C7 -T1. There is severe facet osteoarthritis throughout the cervical spine. There is severe uncovertebra l joint osteoarthritis of the lower cervical spine. The odontoid is intact. The prevertebral soft tis sues are normal. There is fibrous union of the posterior C1 arch. There is emphysema of the visualize d lung apices. IMPRESSION: 1. Moderate cervical spondylosis without acute findings. Reviewed, dictated and finalized at location A.
--- NOTE | ~2021-09-02 | CT_ITS ---
EXAMINATION: CT brain wo con INDICATION: Headache COMPARISON: 03/14/2021 TECHNIQUE: Standard unenhanced head CT. The dose-length product (DLP) was 681.00 mGy-cm. The mA was a djusted according to patient size. Iterative reconstruction technique was employed. FINDINGS: There is no acute intraparenchymal hemorrhage. No evidence of mass lesion. No evidence of a cute infarction. 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 There is mild periventricu lar and subcortical hypodensity probably related to small vessel ischemic disease. There is mild prom inence of the sulci and ventricles related to cerebral atrophy. Intracranial calcified cerebral ather osclerosis is noted. There are no extra-axial collections. There is no mass effect or midline shift. Changes in the left globe are likely from ocular lens surgery. The visualized sinuses and mastoid air cells are well aerated. IMPRESSION: 1. Areas of prior infarct without acute intracranial abnormality. 2. Age related findings. Reviewed, dictated and finalized at location A.
[2021-09-02 09:59] VITALS: BP 120/69; PULSE 56; RESP 18; TEMP 36.4; O2SAT 96
--- NOTE | 2021-09-02 11:02 | PC.NURSE ---
Pt off floor to CT scan
--- NOTE | 2021-09-02 11:04 | PC.NURSE ---
Pt would like to wait on IV medications, IV insertion, and chest x-ray at this time. Clean catch urine collected. Lab picked up Pt off floor to radiology.
[2021-09-02 11:07] LABS: Add Urine Microscopic? YES; Appearance Urine Clear (Clear); Bilirubin Urine Negative (Negative); Blood Urine Negative (Negative); Color Urine Light Yellow (Yellow); Glucose Urine UA Negative (Negative); Ketones Urine Negative (Negative); Leukocyte Esterase Ur 2+ (Negative); Nitrate Urine Positive (Negative); Protein Urine Negative (Negative); Specific Grav Ur 1.015 (1.010-1.020); Urobilinogen Urine 0.2 mg/dL (0.2-1.0)
[2021-09-02 11:28] LABS: Bacteria Urine 3+ /hpf; RBC Urine None seen /hpf (0-2); Squamous Epithelial Cell Urine Rare /hpf (Few)
[2021-09-02 11:38] LABS: Basophils Absolute Auto 0.01 K/mm3 (0.00-0.10); Basophils Percent Auto 0.2 % (0.0-1.0); Eosinophils Absolute Auto 0.16 K/mm3 (0.02-0.50); Eosinophils Percent Auto 3.1 % (1.0-6.0); Hematocrit 35.6 % (35.0-42.0); Immature Granulocyte Absolute 0.02 K/mm3 (0.00-0.00); Immature Granulocyte Percent A 0.4 % (0.0-0.0); Lymphocytes Absolute Auto 1.16 K/mm3 (1.10-4.50); Lymphocytes Percent Auto 22.7 % (18.0-42.0); Mean Corpuscular HGB Conc 30.9 g/dL (32.0-36.0); Mean Corpuscular Hemoglobin 26.3 pg (27.0-31.0); Mean Corpuscular Volume 85.2 fL (78.0-102.0); Mean Platelet Volume 10.8 fl (9.2-11.8); Monocytes Absolute Auto 0.35 K/mm3 (0.10-0.90); Monocytes Percent Auto 6.8 % (2.0-11.0); Neutrophils Absolute Auto 3.4 K/mm3 (1.7-7.2); Neutrophils Percent Auto 66.8 % (50.0-70.0); Platelet Count Result 172 K/mm3 (150-420); Red Blood Count 4.18 M/mm3 (4.20-5.40); Red Cell Distribution Width 13.2 % (11.6-14.4); White Blood Count 5.1 K/mm3 (4.8-10.8)
[2021-09-02] MEDS: ACETAMINOPHEN 325 MG TABLET 650 MG PO (11:39)
[2021-09-02 11:55] LABS: Alanine Aminotransferase 8 U/L (14-59); Albumin Level 3.4 g/dL (3.4-5.0); Alkaline Phosphatase 100 U/L (46-116); Anion Gap 9 mmol/L (8-16); Aspartate Amino Transferase 16 U/L (15-37); Bilirubin,Total 0.2 mg/dL (0.00-1.00); Blood Urea Nitrogen 19 mg/dL (7-18); Calcium 8.3 mg/dL (8.5-10.1); Carbon Dioxide 33 mmol/L (21-32); Chloride 99 mmol/L (98-108); Estimated CRCL calculation 32 ml/min; Estimated Glomerular Filt Rate 34; Glucose 104 mg/dL (70-99); Osmolality Calculated 294 mOsm/kg (285-295); Potassium 2.8 mmol/L (3.5-5.1); Sodium 141 mmol/L (136-145); Total Protein 7.7 g/dL (6.4-8.2); Troponin I 14.5 ng/L (0.00-60.4)
[2021-09-02 11:57] LABS: Lactic Acid Reflex 0.9 mmol/L (0.4-2.0)
--- NOTE | 2021-09-02 12:42 | ED.FALL ---
HPI - Fall General Chief Complaint: Fall Stated Complaint: fell last night head and left shoulder pain Time Seen by Provider: 09/02/21 09:41 Source: patient and RN notes reviewed Mode of arrival: ambulatory Limitations: no limitations History of Present Illness complaint: fall Onset (ago): hour(s) (15) Fall from: standing Fall witnessed: yes, by family Place fall occurred: home Loss of consciousness: none Prolonged down time: no Symptoms prior to fall: none Context: tripped/slipped Location of injury: head and other (shoulder) Quality: dull and aching Associated symptoms (after fall): headache Related Data Allergies Allergy/AdvReac Type Severity Reaction Status Date / Time prednisone AdvReac Mild Jittery Verified 09/06/21 10:08 atorvastatin AdvReac Unknown Muscle Verified 09/06/21 10:08 Spasms duloxetine AdvReac Unknown Diarrhea Verified 09/06/21 10:08 Penicillins AdvReac Unknown Itching Verified 09/06/21 10:08 rosuvastatin AdvReac Unknown Muscle Verified 09/06/21 10:08 Spasms all steriods Allergy Unknown aggression Uncoded 09/06/21 10:08 Review of Systems Review of Systems: All systems reviewed & are unremarkable except as noted in HPI and below Constitutional: Constitutional: Reports no additional constitutional complaints Eyes: Eyes: Reports no additional eye complaints ENT: Reports system reviewed and no additional complaints, except as documented Cardiovascular: Cardiovascular: Reports no additional cardiovascular complaints Respiratory: Respiratory: Reports no additional respiratory complaints Gastrointestinal: Gastrointestinal: Reports no additional gastrointestinal complaints Genitourinary: Genitourinary: Reports no additional female genitourinary complaints Musculoskeletal: Musculoskeletal: Reports arthralgias Integumentary/Breasts: Skin/Breast: Reports system reviewed and no additional complaints, except as docu Neurologic: Reports system reviewed and no additional complaints, except as documented and Reports headache(s) Psychiatric: Psychiatric: Reports no additional psychiatric complaints Endocrine: Endocrine: Reports no additional endocrine complaints Hematologic/Lymphatic: Hematologic/Lymphatic: Reports no additional hematologic/lymphatic complaints Allergic/Immunologic: Allergic/Immunologic: Reports no additional allergic/immunologic complaints [facility] Past Medical History Medical History Anxiety Arthritis COPD (chronic obstructive pulmonary disease) Depression GERD (gastroesophageal reflux disease) HTN (hypertension) Hypokalemia Migraines Normal colonoscopy 04/17 Surgical History Surgical History History of back surgery History of colon resection History of colostomy Hx of cholecystectomy 1995 Status post colostomy takedown Family History Family History Mother Heart disease Hypertension Acute myocardial infarction Diabetes mellitus Father Acute myocardial infarction Heart disease Sibling Breast cancer Diabetes mellitus Social History Social History Smoking status: Former smoker Second hand tobacco smoke exposure: No Smoking end date: 03/31/14 Alcohol intake: never Substance use: never Substance use type: does not use Gender identity (if verbalized by the patient): Female Sexual Orientation (if Verbalized by the Patient): Straight or Heterosexual Spiritual care concerns: No Agree to blood products: Yes Exam Const: General: no acute distress Nutritional Appearance: well nourished Orientation/consciousness: patient oriented x3 Limitations: no limitations HENMT: Head: normal to inspection Ears: external ears normal, TM's normal bilaterally and EAC's normal General nose exam: Normal external nose presen
[2021-09-02] MEDS: cefTRIAXone 1 GM, LIDOCAINE HCL 1% LOCAL INJ 2.1 ML IM (13:09)
[2021-09-02] MEDS: POTASSIUM CHLORIDE 20 MEQ TABLET 80 MEQ PO (13:09)
[2021-09-02 13:38] VITALS: BP 130/79; PULSE 71; RESP 18; TEMP 36.8; O2SAT 95
== END 2021-09-02 13:38 | disposition home or self-care (01) ==
PROVIDERS: Emergency Provider Emergency Medicine; PCP Family Medicine Adolescent Medicine
DX: N39.0 Urinary tract infection, site not specified (principal); S09.90XA Unspecified injury of head, initial encounter; S40.012A Contusion of left shoulder, initial encounter; W10.9XXA Fall (on) (from) unspecified stairs and steps, initial encounter; F41.8 Other specified anxiety disorders; J44.9 Chronic obstructive pulmonary disease, unspecified; K21.9 Gastro-esophageal reflux disease without esophagitis; I10 Essential (primary) hypertension; Z87.891 Personal history of nicotine dependence
CPT/HCPCS: 36415; 70450; 72125; 73030; 80053; 81001; 83605; 84484; 85025; 96372; 99284; A4565; A9270; J0696

== ENCOUNTER 2021-12-24 13:59 | Outpatient (RCR) | payer MEDICARE, SELFPAY ==
--- NOTE | 2021-12-24 14:01 | PTOPEVAL1 ---
Assessment and note entered by Ben Pena Evaluation Information Assessment Status Evaluation Diagnosis repeated falls Onset 11/23/21 Subjective Information Pt. reports that she has had several falls in the past 6 months. She reports that most recent fall she missed a step at her daughters and fell to the ground. She reports that she does not use a cane or walker. She still gets into the community by herself. She states that she has noticed that standing up straight has recently become difficult and notices increased back pain and pain will shoot down her leg. She reports her goal for therapy is to be able to walk more safely and improve her balance. Reported Pain Level Pain Score 0: Self Report Assessment PT Clinical Summary Pt. is a 71 year old female who enters the clinic due to recent falls. She presents with impaired u .e. and l.e. strength, impaired postural awareness , impaired balance and high fall risk on this date . Continued treatment is indicated in order to improve these areas to allow the pt. to be able to complete all IADL's without limitation. Plan of Care Interventions Gait Training,Neuro Re-education,Therapeutic Activities,Therapeutic Exercise PT Services Indicated Yes Treatment Frequency and 2x/week x 10 visits Duration These treatments will address the objective and functional deficits as defined above. The patient will be advanced safely and appropriately in order for the patient to progress towards his/her prior level of function. Additional exercises will be introduced and as well as a comprehensive home exercise program upon discharge, if needed, ?to ensure carryover of functional gains achieved in the clinic. This treatment plan has been reviewed and agreement upon by the patient.
--- NOTE | 2022-01-25 14:20 | PTOPDC ---
Assessment and note entered by JT File, PT Evaluation Information Assessment Status Discharge Diagnosis repeated falls Onset 11/23/21 Subjective Information patient reports she feels good this date. she reports she has had no falls. she reports she has not even come close to falling since starting therapy. she reports she would like to be down with therapy today. Reported Pain Level Pain Score 0: Self Report Assessment PT Clinical Summary mrs. ta presents to skilled PT services for her 10th skilled PT visit this date. as of this date, she displays improved balance, decreased fall risk, and improved LE strength. despite her lack of progress towards goals achievement, she subjectively reports feeling much more steady. due to patients improved balance, improved strength, and wishes to be done with therapy this date, she will be dc'd from skilled PT. she is to continue HEP independent at home. Plan of Care Treatment Frequency and DC to independent HEP Duration
== END 2022-01-25 16:46 | disposition home or self-care (01) ==
LOC: CHSPT 13:59
PROVIDERS: Visit Provider Physician Assistant
DX: R29.6 Repeated falls (principal)
CPT/HCPCS: 97110; 97112; 97161; 97530

== ENCOUNTER 2022-06-15 12:16 | Emergency (ER) | payer MEDICARE, SELFPAY ==
--- NOTE | ~2022-06-15 | XR_ITS ---
XR chest 2V 06/15/2022 14:05 Indication: Cough and fever Procedure: 2 view chest Comparison: 07/17/2021 Findings: Borderline heart size. Enlarged central pulmonary arteries consistent with pulmonary arteri al hypertension. Subtle right middle lobe infiltrates may represent atelectasis or developing pneumon ia. The lungs are hyperinflated which is consistent with, but not diagnostic of chronic obstructive p ulmonary disease. Impression: 1: Subtle right middle lobe infiltrates may represent atelectasis or developing pneumonia. Reviewed, dictated and finalized at location A. Impression: 1: Subtle right middle lobe infiltrates may represent atelectasis or developing pneumonia.
[2022-06-15 12:56] VITALS: BP 147/73; PULSE 74; RESP 16; TEMP 36.5; O2SAT 98
--- NOTE | 2022-06-15 13:40 | ED.URI ---
HPI - URI/Sore Throat General Chief Complaint: Upper Respiratory Infection Stated Complaint: COUGH/CONGESTION/CHILLS S/P PNEUMONIA Source: patient and RN notes reviewed Mode of arrival: ambulatory Limitations: no limitations History of Present Illness HPI Narrative: 72-year-old female with hx COPD presented for complaint of cough, headache, sinus pressure congestion, and chills since yesterday. Patient was diagnosed with ?a touch? of pneumonia about 2 weeks ago, she tolerated only about 4 doses of Levaquin, which caused hallucinations and insomnia. She discontinue the antibiotic and was advised to contact PCP the following day to change the antibiotic, however she did not follow-up. She states she was feeling well this week until yesterday. She endorses sick contacts with grand children. She denies shortness of breath, wheezing, nausea, vomiting, or fever. MD elicited complaint: cough Related Data Home Medications Medication Instructions Recorded Confirmed dicyclomine 20 mg tablet 20 mg PO TID 04/24/22 06/05/22 nortriptyline 25 mg capsule 25 mg PO QHS 04/24/22 06/05/22 isulkds-truyoisycskvq-rihdrpno 250 1 tablet PO Q4-6H PRN 06/05/22 06/05/22 mg-250 mg-65 mg tablet (Excedrin Extra Strength) lisinopril 20 mg tablet 20 mg PO DAILY 06/05/22 06/05/22 metoprolol tartrate 50 mg tablet 100 mg PO DAILY 06/05/22 06/05/22 Allergies Allergy/AdvReac Type Severity Reaction Status Date / Time prednisone AdvReac Mild Jittery Verified 06/15/22 13:38 atorvastatin AdvReac Unknown Muscle Verified 06/15/22 13:38 Spasms duloxetine AdvReac Unknown Diarrhea Verified 06/15/22 13:38 Penicillins AdvReac Unknown Itching Verified 06/15/22 13:38 rosuvastatin AdvReac Unknown Muscle Verified 06/15/22 13:38 Spasms all steriods Allergy Unknown aggression Uncoded 06/15/22 13:38 Review of Systems Review of Systems: CONSTITUTIONAL: Denies malaise, sweats, fever EYES: Denies visual changes, redness, or discharge ENT: Reports rhinorrhea, congestion, sinus pain, otalgia, sore throat CARDIOVASCULAR: Denies chest pain, palpitations, edema RESPIRATORY: Reports cough, post nasal drainage. Denies dyspnea GASTROINTESTINAL: Denies abdominal pain, nausea, vomiting, diarrhea SKIN: Denies rash or itching MUSCULOSKELETAL: Denies myalgia NEUROLOGIC: Denies headache PMFSH Past Medical History Medical History Anxiety Arthritis COPD (chronic obstructive pulmonary disease) Depression GERD (gastroesophageal reflux disease) HTN (hypertension) Hypokalemia Migraines Normal colonoscopy 04/17 Surgical History Surgical History History of back surgery History of colon resection (10/2016) Perforated sigmoid diverticulitis History of colostomy (10/2016) Hx of cholecystectomy 1996 Status post colostomy takedown Family History Family History Mother Heart disease Hypertension Acute myocardial infarction Diabetes mellitus Father Acute myocardial infarction Heart disease Sibling Breast cancer Diabetes mellitus Social History Social History Smoking status: Former smoker Second hand tobacco smoke exposure: No Smoking end date: 03/31/14 Alcohol intake: never Substance use: never Substance use type: does not use Living arrangements: alone Occupation/Education: retired Gender identity (if verbalized by the patient): Female Sexual Orientation (if Verbalized by the Patient): Straight or Heterosexual Spiritual care concerns: No Agree to blood products: Yes Exam Narrative: GENERAL: mildly ll-appearing, nontoxic no acute distress. HEAD: Normocephalic EYES: PERRLA, conjunctivae clear ENT: Mucous membranes moist. TM pearly aquino with dull light reflex bilaterally; no tragal tenderness. Orop
== END 2022-06-15 14:31 | disposition home or self-care (01) ==
PROVIDERS: Emergency Provider Nurse Practitioner Family; PCP Family Medicine Adolescent Medicine
DX: J22 Unspecified acute lower respiratory infection (principal); I10 Essential (primary) hypertension; J44.9 Chronic obstructive pulmonary disease, unspecified; Z87.891 Personal history of nicotine dependence; Z20.822 Contact with and (suspected) exposure to COVID-19
CPT/HCPCS: 71046; 87081; 87426; 87880; 99213; C9803; G0463

== ENCOUNTER 2022-09-23 20:06 | Emergency (ER) | payer MEDICARE, SELFPAY ==
--- NOTE | ~2022-09-23 | CT_ITS ---
EXAMINATION: CT pelvis wo con DATE: 09/23/2022 20:44 INDICATION: Fall off a porch, landing on the right hip. Abnormality in the concurrent radiographs. TECHNIQUE: Computed tomography (CT) of the pelvis was performed without intravenous contrast. Automat ed exposure control and iterative reconstruction technique were employed. The dose-length product was 396.19 mGy-cm. COMPARISON: X-ray right femur, same date FINDINGS: Severe multilevel lumbar degenerative disc disease. Mild degenerative change in the left SI joint and left hip. Moderate degenerative change in the right hip. No fracture or dislocation. Uncom plicated distal sigmoid anastomoses. Cholecystectomy clips. Chronic stable bile duct dilation. Athero sclerotic calcifications. 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 Marked left pelviectasis and moderate pelviectasis with left renal atrophy. IMPRESSION: No acute osseous finding in the pelvis or hips. Chronic bile duct dilation, likely secondary to cholecystectomy unless accompanied by right upper daren drant pain and laboratory abnormalities. Left hydronephrosis with renal atrophy suggesting chronic long-standing obstruction. Reviewed, dictated and finalized at location K. IMPRESSION: No acute osseous finding in the pelvis or hips. Chronic bile duct dilation, likely secondary to cholecystectomy unless accompan ied by right upper quadrant pain and laboratory abnormalities. Left hydronephrosis with renal atrophy suggesting chronic long-standing obstruc tion.
--- NOTE | ~2022-09-23 | XR_ITS ---
EXAM: XR femur RT min 2V DATE: 09/23/2022 20:45 HISTORY: upper Rt leg pain and hip pain from fall . COMPARISON: 07/17/2021. FINDINGS: Normal mineralization. Right femoral neck appears foreshortened. No lytic or blastic lesio n. Moderate right hip and knee osteoarthritis. Vascular calcifications. No erosion or periosteal duron ge. Soft tissues within normal limits. IMPRESSION: Foreshortening of the right femoral neck likely due to a nondisplaced transverse femoral neck fracture. Reviewed, dictated and finalized at location K. IMPRESSION: Foreshortening of the right femoral neck likely due to a nondisplac ed transverse femoral neck fracture.
[2022-09-23 20:13] VITALS: BP 121/68; PULSE 76; RESP 16; TEMP 36.4; O2SAT 98
[2022-09-23] MEDS: HYDROcodone/acetaminophen (*CRX) 5-325 MG TABLET 2 TAB PO (20:23)
--- NOTE | 2022-09-23 20:33 | ED.GENADULT ---
HPI - General Adult General Chief complaint: Fall Stated complaint: fall Time Seen by Provider: 09/23/22 20:32 History of Present Illness HPI narrative: 72yo woman presents with pain to the right buttock, right hip after a fall stepping out of her front door, missed her handhold and stumbled backwards onto her bottom. Hurts to walk. Did not hit head, neck, or FOOSH. No other pains. Related Data Home Medications Medication Instructions Recorded Confirmed nortriptyline 25 mg capsule 25 mg PO QHS 04/24/22 09/23/22 cfyxxor-faxxncudgnpeb-ogegvrrd 250 1 tablet PO Q4-6H PRN Pain 06/05/22 09/23/22 mg-250 mg-65 mg tablet (Excedrin Extra Strength) lisinopril 20 mg tablet 40 mg PO DAILY 08/02/22 09/23/22 metoprolol tartrate 50 mg tablet 75 mg PO BID 08/02/22 09/23/22 trazodone 100 mg tablet 200 mg PO QHS 09/23/22 09/23/22 Allergies Allergy/AdvReac Type Severity Reaction Status Date / Time levofloxacin AdvReac Intermediate Hallucinati Verified 08/02/22 10:04 ng prednisone AdvReac Mild Jittery Verified 08/02/22 10:04 atorvastatin AdvReac Unknown Muscle Verified 08/02/22 10:04 Spasms duloxetine AdvReac Unknown Diarrhea Verified 08/02/22 10:04 Penicillins AdvReac Unknown Itching Verified 08/02/22 10:04 rosuvastatin AdvReac Unknown Muscle Verified 08/02/22 10:04 Spasms all steriods Allergy Unknown aggression Uncoded 08/02/22 10:04 Review of Systems Review of Systems: All systems reviewed & are unremarkable except as noted in HPI and below Constitutional: Constitutional: Denies chills and Denies fever(s) ENT: Denies dizziness Cardiovascular: Cardiovascular: Denies chest pain Respiratory: Respiratory: Denies dyspnea Gastrointestinal: Gastrointestinal: Denies abdominal pain PMFSH Past Medical History Medical History Anxiety Arthritis COPD (chronic obstructive pulmonary disease) Depression GERD (gastroesophageal reflux disease) HTN (hypertension) Hypokalemia Migraines Normal colonoscopy 04/17 Surgical History Surgical History History of back surgery History of colon resection (10/2016) Perforated sigmoid diverticulitis History of colostomy (10/2016) Hx of cholecystectomy 1996 Status post colostomy takedown Family History Family History Mother Heart disease Hypertension Acute myocardial infarction Diabetes mellitus Father Acute myocardial infarction Heart disease Sibling Breast cancer Diabetes mellitus Social History Social History Smoking status: Former smoker Second hand tobacco smoke exposure: No Smoking end date: 03/31/14 Alcohol intake: never Substance use: never Substance use type: does not use Living arrangements: alone Occupation/Education: retired Gender identity (if verbalized by the patient): Female Sexual Orientation (if Verbalized by the Patient): Straight or Heterosexual Spiritual care concerns: No Agree to blood products: Yes Exam Const: General: healthy appearing, no acute distress and alert Nutritional Appearance: well nourished Eyes: Conjunctivae: conjunctivae normal Neck: Other: supple Resp: Effort & Inspection: normal respiratory effort and not labored Cardio: Rate: regular rate Rhythm: regular rhythm GI: Inspection: non-distended Skin: General skin exam: normal color, no jaundice and no pallor Neuro: General: patient oriented x3, moves all extremities and no focal motor deficits Speech: normal speech Course Vital Signs Vital signs: Vital Signs Temperature 36.4 C 09/23/22 20:13 Pulse Rate 76 09/23/22 20:13 Respiratory Rate 16 09/23/22 20:13 Blood Pressure 121/68 09/23/22 20:13 Pulse Oximetry 98 09/23/22 20:13 Oxygen Delivery Room Air 09/23/22 20:13
[2022-09-23] MEDS: methocarbamoL 750 MG TABLET PO (21:08)
[2022-09-23 21:44] VITALS: BP 129/72; PULSE 78; RESP 18; O2SAT 96
== END 2022-09-23 21:55 | disposition home or self-care (01) ==
PROVIDERS: Emergency Provider Emergency Medicine; PCP Family Medicine Adolescent Medicine
DX: S70.01XA Contusion of right hip, initial encounter (principal); J44.9 Chronic obstructive pulmonary disease, unspecified; I10 Essential (primary) hypertension; F32.A Depression, unspecified; F41.9 Anxiety disorder, unspecified; Z79.82 Long term (current) use of aspirin; Z87.891 Personal history of nicotine dependence; W19.XXXA Unspecified fall, initial encounter; Y92.008 Other place in unspecified non-institutional (private) residence as the place of occurrence of the external cause
CPT/HCPCS: 72192; 73552; 99284; A9270

== ENCOUNTER 2023-08-11 19:27 | Emergency (ER) | payer MEDICARE, SELFPAY ==
[2023-08-11 19:27] VITALS: BP 164/76; PULSE 62; RESP 19; TEMP 36.4; O2SAT 98
[2023-08-11 19:35] VITALS: PULSE 62
--- NOTE | 2023-08-11 19:40 | ED.GENADULT ---
HPI - General Adult General Chief complaint: Unspecified Stated complaint: CHOKING, PARTIAL AIRWAY OBSTRUCTION Time Seen by Provider: 08/11/23 19:36 History of Present Illness HPI narrative: This is a 73-year-old female presenting ED with a chief complaint of food stuck in her throat. Patient was cooking new recipe for pork chops and felt like the pork gone down the wrong pipe. She then came to the emergency department for evaluation. At this time she feels like she has some pressure in her upper chest but she is now speaking and breathing normally. This is never happened in the past and she is not typically have any difficulty swallowing. No other symptoms. Related Data Home Medications Medication Instructions Recorded Confirmed kgzieev-bydvydkddagby-jkzymink 250 1 tablet PO Q4-6H PRN Pain 06/05/22 03/07/23 mg-250 mg-65 mg tablet (Excedrin Extra Strength) trazodone 100 mg tablet 200 mg PO QHS 09/23/22 03/07/23 Allergies Allergy/AdvReac Type Severity Reaction Status Date / Time levofloxacin AdvReac Intermediate Hallucinati Verified 03/07/23 09:27 ng prednisone AdvReac Mild Jittery Verified 03/07/23 09:27 atorvastatin AdvReac Unknown Muscle Verified 03/07/23 09:27 Spasms duloxetine AdvReac Unknown Diarrhea Verified 03/07/23 09:27 Penicillins AdvReac Unknown Itching Verified 03/07/23 09:27 rosuvastatin AdvReac Unknown Muscle Verified 03/07/23 09:27 Spasms all steriods Allergy Unknown aggression Uncoded 03/07/23 09:27 [facility] Past Medical History Medical History Anxiety Arthritis COPD (chronic obstructive pulmonary disease) Depression GERD (gastroesophageal reflux disease) HTN (hypertension) Hypokalemia Migraines Normal colonoscopy 04/17 Surgical History Surgical History History of back surgery History of colon resection (10/2016) Perforated sigmoid diverticulitis History of colostomy (10/2016) Hx of cholecystectomy 1996 Status post colostomy takedown Family History Family History Mother Heart disease Hypertension Acute myocardial infarction Diabetes mellitus Father Acute myocardial infarction Heart disease Sibling Breast cancer Diabetes mellitus Social History Social History Smoking status: Former smoker Second hand tobacco smoke exposure: No Smoking end date: 03/31/14 Alcohol intake: never Substance use: never Substance use type: does not use Living arrangements: alone Occupation/Education: retired Gender identity (if verbalized by the patient): Female Sexual Orientation (if Verbalized by the Patient): Straight or Heterosexual Spiritual care concerns: No Agree to blood products: Yes Exam Narrative: APPEARANCE: No apparent distress. Speaking full sentences Head: atraumatic. EYES: EOMI, NOSE: Atraumatic NECK: Trachea midline RESPIRATORY: No increased rate of breathing CTAB CARDIOVASCULAR: RRR, ABDOMINAL: Non-distended MUSCULOSKELETAl: No obvious deformities NEURO: Alert. Moving 4/4 extremities SKIN:: Warm, dry. Normal color PSYCHIATRIC: Normal affect Course Vital Signs Vital signs: Vital Signs Temperature 97.5 F L 08/11/23 19:27 Pulse Rate 62 08/11/23 19:27 Respiratory Rate 19 08/11/23 19:27 Blood Pressure 164/76 H 08/11/23 19:27 Pulse Oximetry 98 08/11/23 19:27 Oxygen Delivery Room Air 08/11/23 19:27 Temperature 97.5 F L 08/11/23 19:27 Pulse Rate 62 08/11/23 19:35 Respiratory Rate 19 08/11/23 19:27 Blood Pressure 164/76 H 08/11/23 19:27 Pulse Oximetry 98 08/11/23 19:27 Oxygen Delivery Room Air 08/11/23 19:[address] [facility] Narrative Medical decision making narrative: -Course: 73-year-old presenting with food stuck in her throat. At this point
--- NOTE | 2023-08-11 20:30 | PC.NURSE ---
20:00 This RN was instructed by Dr. Sainz to give pt a carbonated drink and crackers to see if pt tolerates well. 20:30 Pt states she drank and ate all her soda and crackers and states no problems. Dr. Sainz is aware and plans on sending her home.
== END 2023-08-11 20:51 | disposition home or self-care (01) ==
PROVIDERS: Emergency Provider Emergency Medicine; PCP Family Medicine Adolescent Medicine
DX: T18.128A Food in esophagus causing other injury, initial encounter (principal); I10 Essential (primary) hypertension; J44.9 Chronic obstructive pulmonary disease, unspecified; K21.9 Gastro-esophageal reflux disease without esophagitis; M19.90 Unspecified osteoarthritis, unspecified site; Z87.891 Personal history of nicotine dependence; Z90.49 Acquired absence of other specified parts of digestive tract; Z79.82 Long term (current) use of aspirin; W44.F3XA Food entering into or through a natural orifice, initial encounter
CPT/HCPCS: 99284

== ENCOUNTER 2024-02-21 17:40 | Day surgery (SDC) | payer MEDICARE, SELFPAY ==
--- NOTE | ~2024-02-21 | XR_ITS ---
XR chest 2V DATE: 02/21/2024 18:11 INDICATION: Foreign body of esophagus TECHNIQUE: AP and lateral views COMPARISON: None FINDINGS: There is an oval 14.8 x 20.8 mm a shallow type calcific density overlying the diaphragmatic hiatus, best demonstrated on the AP view. This apparently corresponds to the indication of esophagea l foreign body. There is mild infiltrate or atelectasis in the right lower lung. The lungs are moderately hyperinflated with increased retrosternal airspace, suggesting obstructive a irways disease. There is diffuse osteopenia. IMPRESSION: 14.8 x 20.8 mm radiopaque foreign body overlying diaphragmatic hiatus Minimal infiltrate or atelectasis, right lower lung COPD Reviewed, dictated and finalized at location A. GYNECOLOGY
[2024-02-21 17:41] VITALS: BP 125/96; PULSE 81; RESP 16; TEMP 36.8; O2SAT 98
[2024-02-21] MEDS: GLUCAGON FOR INJ 1 MG VIAL IM (18:30)
--- NOTE | 2024-02-21 18:50 | ED.SKABFB ---
HPI - Skin/Abscess/Foreign Bdy General Chief complaint: Skin/Abscess/Foreign Body <Nadia Arteaga PA-C - Last Filed: 02/21/24 20:38> Stated complaint: fb gi <ESTHER Batista Last Filed: 02/21/24 20:38> Time Seen by Provider: 02/21/24 17:55 <ESTHER Batista Last Filed: 02/21/24 20:38> Source: patient <ESTHER Batista Last Filed: 02/21/24 20:38> Mode of arrival: EMS <ESTHER Batista Last Filed: 02/21/24 20:38> Limitations: no limitations <ESTHER Batista Last Filed: 02/21/24 20:38> History of Present Illness HPI narrative: Patient is a 73-year-old female who presents the ED via EMS with report of the food bolus. Patient reports she was eating steak earlier today while talking to someone on the phone when she feels a piece of the steak become caught. States her family attempted back blows but was unable to dislodge the steak. She is unable to keep down any food or drink, spitting up saliva. Denies SOB/CP. Had similar episode of food getting stuck in July of this year, was seen in the ED but food bolus had passed on its own. She did not require endoscopy at that time. <ESTHER Batista Last Filed: 02/21/24 20:38> Related Data Home medications: Home Medications Medication Instructions Recorded Confirmed loteyyt-ukmoklglnfxvi-mwlzioxs 250 1 tablet PO Q4-6H PRN Pain 06/05/22 02/10/24 mg-250 mg-65 mg tablet (Excedrin Extra Strength) <ESTHER Batista Last Filed: 02/21/24 20:38> Allergies/Adverse reactions: Allergies Allergy/AdvReac Type Severity Reaction Status Date / Time levofloxacin AdvReac Intermediate Hallucinati Verified 02/21/24 20:32 ng prednisone AdvReac Mild Jittery Verified 02/21/24 20:32 atorvastatin AdvReac Unknown Muscle Verified 02/21/24 20:32 Spasms duloxetine AdvReac Unknown Diarrhea Verified 02/21/24 20:32 Penicillins AdvReac Unknown Itching Verified 02/21/24 20:32 rosuvastatin AdvReac Unknown Muscle Verified 02/21/24 20:32 Spasms all steriods Allergy Unknown aggression Uncoded 02/21/24 20:32 <Nadia Arteaga PA-C - Last Filed: 02/21/24 20:38> Review of Systems Review of Systems: All systems reviewed & are unremarkable except as noted in HPI. <Nadia Arteaga PA-C - Last Filed: 02/21/24 20:38> All systems reviewed & are unremarkable except as noted in HPI and below <Nadia Arteaga PA-C - Last Filed: 02/21/24 20:38> [facility] Past Medical History Medical History: Medical History Anxiety Arthritis COPD (chronic obstructive pulmonary disease) Depression GERD (gastroesophageal reflux disease) HTN (hypertension) Hypokalemia Migraines Normal colonoscopy 04/17 <Nadia Arteaga PA-C - Last Filed: 02/21/24 20:38> Surgical History Surgical History: Surgical History History of back surgery History of colon resection (10/2016) Perforated sigmoid diverticulitis History of colostomy (10/2016) Hx of cholecystectomy 1996 Status post colostomy takedown <Nadia Arteaga PA-C - Last Filed: 02/21/24 20:38> Family History Family History: Family History Mother Heart disease Hypertension Acute myocardial infarction Diabetes mellitus Father Acute myocardial infarction Heart disease Sibling Breast cancer Diabetes mellitus <Nadia Arteaga PA-C - Last Filed: 02/21/24 20:38> Social History Social History: Social History Smoking status: Former smoker Second hand tobacco smoke exposure: No Smoking end date: 03/31/14 Alcohol intake: never Substance use: never Substance use type: does not use Living arrangements: alone Occupation/Education: retired Gender identity (if verbalized by the patient): Female Sexual Orientation (if Verbalized by the Patient): Straight or Heterosexual Spiritual care concerns: No Agree to blood products: Yes <Nadia Arteaga PA-C - Last Filed: 02/21/24 20:38> Exam Narrative: GENERAL: Elderly, obese with BMI of 30.8, non-toxic, in no acute distress. HEAD: Normocephalic, atraumatic. RESPIRATORY: Airway patent, respirations nonlabored. Clear to auscultation bilaterally, no rales, rhonchi, wheezing. No stridor but slight hoarse quality to voice. Spitting into emesis bag. CARDIOVASCULAR: Regular rate and rhythm without murmurs, rubs, or gallops. MUSCULOSKELETAL: Moves all extremities. No gross deformities. SKIN: Warm, dry, normal color. NEURO: A&O X3. Speech clear PSYCHIATRIC: Appropriate mood and affect. Normal interaction. 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 I independently evaluated the case and reviewed patient's imaging studies and concur with the ingested foreign body radiopaque evident on the chest x-ray and plan for endoscopy with GI specialist. Dr. Burciaga was contacted and endoscopy suite was activated for definitive intervention. Patient likely able to be discharged home after procedure. <Carlin Joshi MD - Last Filed: 02/21/24 22:29> Vital Signs Vital signs: Vital Signs Temperature 36.8 C 02/21/24 17:41 Pulse Rate 81 02/21/24 17:41 Respiratory Rate 16 02/21/24 17:41 Blood Pressure 125/96 H 02/21/24 17:41 Pulse Oximetry 98 02/21/24 17:41 Temperature 36.7 C 02/21/24 20:25 Pulse Rate 71 02/21/24 21:16 Respiratory Rate 22 H 02/21/24 21:16 Blood Pressure 131/60 02/21/24 21:16 Pulse Oximetry 95 02/21/24 21:16 Oxygen Delivery Room Air 02/21/24 21:16 <Nadia Arteaga PA-C - Last Filed: 02/21/24 20:38> Vital Signs Temperature 36.8 C 02/21/24 17:41 Pulse Rate 81 02/21/24 17:41 Respiratory Rate 16 02/21/24 17:41 Blood Pressure 125/96 H 02/21/24 17:41 Pulse Oximetry 98 02/21/24 17:41 Temperature 36.7 C 02/21/24 20:25 Pulse Rate 71 02/21/24 21:16 Respiratory Rate 22 H 02/21/24 21:16 Blood Pressure 131/60 02/21/24 21:16 Pulse Oximetry 95 02/21/24 21:16 Oxygen Delivery Room Air 02/21/24 21:16 <Carlin Joshi MD - Last Filed: 02/21/24 22:29> MDM - Skin/Abscess/Foreign Bdy MDM Narrative Medical decision making narrative: Patient presented to ED with likely esophageal food impaction. History of similar episode several months ago, but resolved on its own. Vital signs are stable. Patient is in no acute distress. No respiratory distress or compromise, but patient having difficulty maintaining saliva. Frequently spitting into emesis bag. Attempted to have patient drink soda, but unable to keep down liquids for more than a few seconds before spitting them back up. Attempted glucagon without change. Chest x-ray is obtained and does show possible foreign body overlying the diaphragmatic hiatus. Discussed case with Dr. Burciaga, GI, advised will take to endoscopy suite for removal. Patient in agreement with plan. <Nadia Arteaga PA-C - Last Filed: 02/21/24 20:38> Medical Records Attestation: I reviewed the patient's medical records. <Nadia Arteaga PA-C - Last Filed: 02/21/24 20:38> Imaging Data Attestation: I personally reviewed and interpreted this imaging study as follows: <Nadia Arteaga PA-C - Last Filed: 02/21/24 20:38> Radiologist's impression: ITS Impressions Chest X-Ray 02/21/24 18:12 IMPRESSION: 14.8 x 20.8 mm radiopaque foreign body overlying diaphragmatic hiatus Minimal infiltrate or atelectasis, right lower lung COPD <Nadia Arteaga PA-C - Last Filed: 02/21/24 20:38> Discharge Plan Discharge Clinical Impression: Food impaction of esophagus Qualifiers: Encounter type: initial encounter Qualified Code(s): T18.128A - Food in esophagus causing other injury, initial encounter <Nadia Arteaga PA-C - Last Filed: 02/21/24 20:38> Patient Disposition: Other <ESTHER Batista Last Filed: 02/21/24 20:38> Condition: Stable <ESTHER Batista Last Filed: 02/21/24 20:38>
[2024-02-21 19:49] VITALS: BP 154/85; PULSE 77; RESP 14; O2SAT 98
[2024-02-21 20:25] VITALS: BP 136/75; PULSE 80; RESP 20; TEMP 36.7; O2SAT 95
--- NOTE | 2024-02-21 20:27 | P.PNAN_ITS ---
Anes - Initial Pre Proc Eval Procedure: Operation Date: 02/21/24 20:15 Proposed Procedures p Esophagogastroduodenoscopy - Yunior Burciaga MD Date/Time: 02/21/24 20:27 Surgeon: Yunior Burciaga MD Pre Op Diagnosis: fb gi Patient Data Age: 73 Gender: F Height: 1.63 m Weight: 81.4 kg Last Vital Signs Temp 36.8 C 02/21/24 17:41 Pulse 77 02/21/24 19:49 Resp 14 02/21/24 19:49 BP 154/85 H 02/21/24 19:49 Pulse Ox 98 02/21/24 19:49 Allergies Allergy/AdvReac Type Severity Reaction Status Date / Time levofloxacin AdvReac Intermediate Hallucinati Verified 02/10/24 13:04 ng prednisone AdvReac Mild Jittery Verified 02/10/24 13:04 atorvastatin AdvReac Unknown Muscle Verified 02/10/24 13:04 Spasms duloxetine AdvReac Unknown Diarrhea Verified 02/10/24 13:04 Penicillins AdvReac Unknown Itching Verified 02/10/24 13:04 rosuvastatin AdvReac Unknown Muscle Verified 02/10/24 13:04 Spasms all steriods Allergy Unknown aggression Uncoded 02/10/24 13:04 Home Medications Medication Instructions Recorded Confirmed Type hwxwgyo-dcfgmyajufhdp-xycczkdm 250 1 tablet PO Q4-6H PRN Pain 06/05/22 02/10/24 History mg-250 mg-65 mg tablet (Excedrin Extra Strength) furosemide 40 mg tablet 40 mg PO DAILY #100 tabs 05/12/23 02/10/24 Rx nortriptyline 25 mg capsule 25 mg PO QHS #90 caps 05/12/23 02/10/24 Rx omeprazole 20 mg capsule,delayed 20 mg PO BID #200 caps 05/12/23 02/10/24 Rx release potassium chloride 10 mEq 10 meq PO DAILY #100 tabs 05/12/23 02/10/24 Rx tablet,extended release dicyclomine 20 mg tablet 20 mg PO TID #270 tabs 07/01/23 02/10/24 Rx fluticasone propionate 50 2 spray intranasal BID #16 grams 09/10/23 02/10/24 Rx mcg/actuation nasal spray,suspension lisinopril 40 mg tablet 40 mg PO DAILY #100 tabs 09/10/23 02/10/24 Rx metoprolol tartrate 100 mg tablet 100 mg PO BID #200 tabs 09/10/23 02/10/24 Rx trazodone 100 mg tablet 200 mg PO QHS #180 tabs 10/27/23 02/10/24 Rx alprazolam 1 mg tablet 1 mg PO QID PRN Anxiety #360 tabs 01/12/24 02/10/24 Rx diphenoxylate-atropine 2.5 See Rx Instructions PO QID PRN 02/10/24 02/10/24 Rx mg-0.025 mg tablet diarrhea #60 tabs ibuprofen 800 mg tablet 800 mg PO TID PRN pain #270 tabs 02/10/24 02/10/24 Rx tramadol 50 mg tablet 50 mg PO QID PRN pain #50 tabs 02/10/24 02/10/24 Rx Patient hx anesthesia problems: none Family hx anesthesia problems: none Results Review: All pre-operative results and documents have been reviewed as part of the pre- operative evaluation. [facility] Past Medical History Medical History Anxiety Arthritis COPD (chronic obstructive pulmonary disease) Depression GERD (gastroesophageal reflux disease) HTN (hypertension) Hypokalemia Migraines Normal colonoscopy 04/17 Surgical History Surgical History History of back surgery History of colon resection (10/2016) Perforated sigmoid diverticulitis History of colostomy (10/2016) Hx of cholecystectomy 1996 Status post colostomy takedown Family History Family History Mother Heart disease Hypertension Acute myocardial infarction Diabetes mellitus Father Acute myocardial infarction Heart disease Sibling Breast cancer Diabetes mellitus Social History Social History Smoking status: Former smoker Second hand tobacco smoke exposure: No Smoking end date: 03/31/14 Alcohol intake: never Substance use: never Substance use type: does not use Living arrangements: alone Occupation/Education: retired Gender identity (if verbalized by the patient): Female Sexual Orientation (if Verbalized by the Patient): Straight or Heterosexual Spiritual care concerns: No Agree to blood products: Yes Anes - Eval Final PreProcedure Day of Procedure 02/21/24 20:27 Patient weight: obese Heart: regular rate and rhythm Lungs: clear to auscultation Airway: Mallampati scale class II Neurological: alert and oriented Last oral intake: >/= 8 hours ASA classification: III Emergent: no Anesthetic plan: proceed Anesthesia type and monitoring: general GIVS (possible ETT) and standard monitoring Results Review: All pre-operative results and documents have been reviewed as part of the pre- operative evaluation. Informed Consent: The patient's anesthetic plan and its attendant risks and benefits were discussed with the patient/family/POA. Questions were solicited and answers provided to the satisfaction of the patient/family/POA.
--- NOTE | 2024-02-21 20:33 | PM.IMHP ---
H&P: HPI History of Present Illness Date/Time: 02/21/24 20:33 Chief Complaint: Food impaction Narrative: the patient states that she was eating supper around 5:30 p.m. today which included steak. At some point she felt that she could not swallow any more, including her own saliva. There was a similar near impaction several months ago, however the food bolus passed spontaneously after a few hours at that time. There is no history of progressive dysphagia, unintended weight loss, heartburn or ingestion of potassium pills, antibiotics or NSAIDs. There is no odynophagia. Review of Systems Review of Systems: All systems reviewed & are unremarkable except as noted in HPI and below PMFSH Past Medical History Medical History Anxiety Arthritis COPD (chronic obstructive pulmonary disease) Depression GERD (gastroesophageal reflux disease) HTN (hypertension) Hypokalemia Migraines Normal colonoscopy 04/17 Surgical History Surgical History History of back surgery History of colon resection (10/2016) Perforated sigmoid diverticulitis History of colostomy (10/2016) Hx of cholecystectomy 1996 Status post colostomy takedown Family History Family History Mother Heart disease Hypertension Acute myocardial infarction Diabetes mellitus Father Acute myocardial infarction Heart disease Sibling Breast cancer Diabetes mellitus Social History Social History Smoking status: Former smoker Second hand tobacco smoke exposure: No Smoking end date: 03/31/14 Alcohol intake: never Substance use: never Substance use type: does not use Living arrangements: alone Occupation/Education: retired Gender identity (if verbalized by the patient): Female Sexual Orientation (if Verbalized by the Patient): Straight or Heterosexual Spiritual care concerns: No Agree to blood products: Yes Meds Home Medications and Allergies Home Medications Medication Instructions Recorded Confirmed Type gebheuh-bauglkvkzptkx-vlzbxqje 250 1 tablet PO Q4-6H PRN Pain 06/05/22 02/10/24 History mg-250 mg-65 mg tablet (Excedrin Extra Strength) furosemide 40 mg tablet 40 mg PO DAILY #100 tabs 05/12/23 02/10/24 Rx nortriptyline 25 mg capsule 25 mg PO QHS #90 caps 05/12/23 02/10/24 Rx omeprazole 20 mg capsule,delayed 20 mg PO BID #200 caps 05/12/23 02/10/24 Rx release potassium chloride 10 mEq 10 meq PO DAILY #100 tabs 05/12/23 02/10/24 Rx tablet,extended release dicyclomine 20 mg tablet 20 mg PO TID #270 tabs 07/01/23 02/10/24 Rx fluticasone propionate 50 2 spray intranasal BID #16 grams 09/10/23 02/10/24 Rx mcg/actuation nasal spray,suspension lisinopril 40 mg tablet 40 mg PO DAILY #100 tabs 09/10/23 02/10/24 Rx metoprolol tartrate 100 mg tablet 100 mg PO BID #200 tabs 09/10/23 02/10/24 Rx trazodone 100 mg tablet 200 mg PO QHS #180 tabs 10/27/23 02/10/24 Rx alprazolam 1 mg tablet 1 mg PO QID PRN Anxiety #360 tabs 01/12/24 02/10/24 Rx diphenoxylate-atropine 2.5 See Rx Instructions PO QID PRN 02/10/24 02/10/24 Rx mg-0.025 mg tablet diarrhea #60 tabs ibuprofen 800 mg tablet 800 mg PO TID PRN pain #270 tabs 02/10/24 02/10/24 Rx tramadol 50 mg tablet 50 mg PO QID PRN pain #50 tabs 02/10/24 02/10/24 Rx Allergies Allergy/AdvReac Type Severity Reaction Status Date / Time levofloxacin AdvReac Intermediate Hallucinati Verified 02/21/24 20:32 ng prednisone AdvReac Mild Jittery Verified 02/21/24 20:32 atorvastatin AdvReac Unknown Muscle Verified 02/21/24 20:32 Spasms duloxetine AdvReac Unknown Diarrhea Verified 02/21/24 20:32 Penicillins AdvReac Unknown Itching Verified 02/21/24 20:32 rosuvastatin AdvReac Unknown Muscle Verified 02/21/24 20:32 Spasms all steriods Allergy Unknown aggression Uncoded 02/21/24 20:32 Vital Signs Vital Signs - 24 hr 02/21/24 17:41 02/21/24 19:49 Temperature 98.2 F Pulse Rate 81 77 Respiratory Rate 16 14 Blood Pressure 125/96 H 154/85 H Pulse Oximetry 98 98 Exam Narrative: APPEARANCE: No apparent distress. Speaking full sentences Head: atraumatic. EYES: EOMI, NOSE: Atraumatic NECK: Trachea midline RESPIRATORY: No increased rate of breathing CTAB CARDIOVASCULAR: RRR, ABDOMINAL: Non-distended MUSCULOSKELETAl: No obvious deformities NEURO: Alert. Moving 4/4 extremities SKIN:: Warm, dry. Normal color PSYCHIATRIC: Normal affect Assessment and Plan Assessment and plan (1) Food impaction of esophagus: Qualifiers: Encounter type: initial encounter Qualified Code(s): T18.128A - Food in esophagus causing other injury, initial encounter; W44.F3XA - Food entering into or through a natural orifice, initial encounter Code(s): T18.128A - Food in esophagus causing other injury, initial encounter; W44.F3XA - Food entering into or through a natural orifice, initial encounter Status: Acute Plan The patient is deemed a good candidate for EGD and food bolus extraction. Consent signed. Will proceed.
--- NOTE | 2024-02-21 20:34 | P.PNAN_ITS ---
Anes - Initial Pre Proc Eval Procedure: Operation Date: 02/21/24 20:15 Proposed Procedures p Esophagogastroduodenoscopy - Yunior Burciaga MD Date/Time: 02/21/24 20:34 Surgeon: Yunior Burciaga MD Pre Op Diagnosis: fb gi Patient Data Age: 73 Gender: F Height: 1.63 m Weight: 81.4 kg Last Vital Signs Temp 36.8 C 02/21/24 17:41 Pulse 77 02/21/24 19:49 Resp 14 02/21/24 19:49 BP 154/85 H 02/21/24 19:49 Pulse Ox 98 02/21/24 19:49 Allergies Allergy/AdvReac Type Severity Reaction Status Date / Time levofloxacin AdvReac Intermediate Hallucinati Verified 02/21/24 20:32 ng prednisone AdvReac Mild Jittery Verified 02/21/24 20:32 atorvastatin AdvReac Unknown Muscle Verified 02/21/24 20:32 Spasms duloxetine AdvReac Unknown Diarrhea Verified 02/21/24 20:32 Penicillins AdvReac Unknown Itching Verified 02/21/24 20:32 rosuvastatin AdvReac Unknown Muscle Verified 02/21/24 20:32 Spasms all steriods Allergy Unknown aggression Uncoded 02/21/24 20:32 Home Medications Medication Instructions Recorded Confirmed Type eslkeaa-osbyiklkxhmfq-jnwrwurl 250 1 tablet PO Q4-6H PRN Pain 06/05/22 02/10/24 History mg-250 mg-65 mg tablet (Excedrin Extra Strength) furosemide 40 mg tablet 40 mg PO DAILY #100 tabs 05/12/23 02/10/24 Rx nortriptyline 25 mg capsule 25 mg PO QHS #90 caps 05/12/23 02/10/24 Rx omeprazole 20 mg capsule,delayed 20 mg PO BID #200 caps 05/12/23 02/10/24 Rx release potassium chloride 10 mEq 10 meq PO DAILY #100 tabs 05/12/23 02/10/24 Rx tablet,extended release dicyclomine 20 mg tablet 20 mg PO TID #270 tabs 07/01/23 02/10/24 Rx fluticasone propionate 50 2 spray intranasal BID #16 grams 09/10/23 02/10/24 Rx mcg/actuation nasal spray,suspension lisinopril 40 mg tablet 40 mg PO DAILY #100 tabs 09/10/23 02/10/24 Rx metoprolol tartrate 100 mg tablet 100 mg PO BID #200 tabs 09/10/23 02/10/24 Rx trazodone 100 mg tablet 200 mg PO QHS #180 tabs 10/27/23 02/10/24 Rx alprazolam 1 mg tablet 1 mg PO QID PRN Anxiety #360 tabs 01/12/24 02/10/24 Rx diphenoxylate-atropine 2.5 See Rx Instructions PO QID PRN 02/10/24 02/10/24 Rx mg-0.025 mg tablet diarrhea #60 tabs ibuprofen 800 mg tablet 800 mg PO TID PRN pain #270 tabs 02/10/24 02/10/24 Rx tramadol 50 mg tablet 50 mg PO QID PRN pain #50 tabs 02/10/24 02/10/24 Rx Patient hx anesthesia problems: none Family hx anesthesia problems: none Results Review: All pre-operative results and documents have been reviewed as part of the pre- operative evaluation. [facility] Past Medical History Medical History Anxiety Arthritis COPD (chronic obstructive pulmonary disease) Depression GERD (gastroesophageal reflux disease) HTN (hypertension) Hypokalemia Migraines Normal colonoscopy 04/17 Surgical History Surgical History History of back surgery History of colon resection (10/2016) Perforated sigmoid diverticulitis History of colostomy (10/2016) Hx of cholecystectomy 1996 Status post colostomy takedown Family History Family History Mother Heart disease Hypertension Acute myocardial infarction Diabetes mellitus Father Acute myocardial infarction Heart disease Sibling Breast cancer Diabetes mellitus Social History Social History Smoking status: Former smoker Second hand tobacco smoke exposure: No Smoking end date: 03/31/14 Alcohol intake: never Substance use: never Substance use type: does not use Living arrangements: alone Occupation/Education: retired Gender identity (if verbalized by the patient): Female Sexual Orientation (if Verbalized by the Patient): Straight or Heterosexual Spiritual care concerns: No Agree to blood products: Yes Anes - Eval Final PreProcedure Day of Procedure 02/21/24 20:34 Patient weight: obese Heart: regular rate and rhythm Lungs: clear to auscultation Airway: Mallampati scale class II Neurological: alert and oriented Last oral intake: 4 hours ASA classification: III Emergent: no Anesthetic plan: proceed Anesthesia type and monitoring: general GIVS and standard monitoring Results Review: All pre-operative results and documents have been reviewed as part of the pre- operative evaluation. Informed Consent: The patient's anesthetic plan and its attendant risks and benefits were discussed with the patient/family/POA. Questions were solicited and answers provided to the satisfaction of the patient/family/POA.
[2024-02-21] MEDS: LACTATED RINGERS 1,000 ML 150 ML IV CONT (20:35)
[2024-02-21 20:56] VITALS: BP 99/45; PULSE 73; RESP 20; O2SAT 95
[2024-02-21 21:06] VITALS: BP 126/61; PULSE 72; RESP 23; O2SAT 96
[2024-02-21 21:16] VITALS: BP 131/60; PULSE 71; RESP 22; O2SAT 95
--- NOTE | 2024-02-21 21:54 | SUR.PHASEII ---
IV discontinued without difficulty prior to discharge. 02/21/24 [id number].
== END 2024-02-21 21:50 | disposition home or self-care (01) ==
LOC: ANHED 18:26 → ANHENDO 19:32
PROVIDERS: Emergency Provider Physician Assistant; PCP Family Medicine Adolescent Medicine; Visit Provider Internal Medicine Gastroenterology
PROC: 0DJ08ZZ Inspection of Upper Intestinal Tract, Via Natural or Artificial Opening Endoscopic (ICD-10-PCS; CPT 43235; principal; 2024-02-21 20:15)
DX: T18.128A Food in esophagus causing other injury, initial encounter (principal); W44.F3XA Food entering into or through a natural orifice, initial encounter; K21.00 Gastro-esophageal reflux disease with esophagitis, without bleeding; K22.2 Esophageal obstruction; I10 Essential (primary) hypertension; J44.9 Chronic obstructive pulmonary disease, unspecified; F41.9 Anxiety disorder, unspecified; F32.A Depression, unspecified; Z90.49 Acquired absence of other specified parts of digestive tract; E66.9 Obesity, unspecified; Z68.30 Body mass index [BMI] 30.0-30.9, adult; Z87.891 Personal history of nicotine dependence
CPT/HCPCS: 43239; 43247; 71046; 88305; 96372; 99285; J1610; J7120

== ENCOUNTER → 2024-08-24 11:15 | Outpatient (CLI) | payer MEDICARE, SELFPAY ==
--- NOTE | ~2024-08-24 | XR_ITS ---
HISTORY: M17.0 - Bilateral primary osteoarthritis of knee COMPARISON: None TECHNIQUE: 3 views of the left knee were performed FINDINGS: No acute or subacute fracture, erosion, lytic or sclerotic lesion. Medial and lateral tibiofemoral joint space narrowing is identified. No suprapatellar joint effusion is identified. The infrapatellar joint space is clear. Periarticular osteopenia is also present. IMPRESSION: Degenerative disease without acute fracture. Reviewed, dictated and finalized at location A.
--- NOTE | ~2024-08-24 | XR_ITS ---
XR hip RT min 2V Ordering provider: Nilo Rincon History: . M16.11 - Unilateral primary osteoarthritis, right hip . Comparison: September 23, 2022 FINDINGS: BONES: No acute fracture or dislocation. HIP JOINT SPACES: Severe right hip osteoarthritic changes. SOFT TISSUES: Normal. IMPRESSION: No acute osseous abnormality. Severe right hip osteoarthritic changes. Reviewed, dictated and finalized at location A.
--- NOTE | ~2024-08-24 | XR_ITS ---
XR knee RT 3V Ordering provider: Nilo Rincon MD History: . M17.0 - Bilateral primary osteoarthritis of knee . Comparison: None. FINDINGS: BONES: No acute fracture or dislocation. JOINT SPACES: Narrowing of the medial compartment. Marginal osteophytes are noted. Chondrocalcinosis. SOFT TISSUES: Normal. IMPRESSION: No acute osseous abnormality right knee. Mild to moderate osteoarthritic changes of the knee and patella. Chondrocalcinosis. Reviewed, dictated and finalized at location A.
== END ==
LOC: EXPCRAD 11:23
PROVIDERS: PCP Family Medicine Adolescent Medicine; Visit Provider Family Medicine Adolescent Medicine
DX: M16.11 Unilateral primary osteoarthritis, right hip (principal); M17.0 Bilateral primary osteoarthritis of knee
CPT/HCPCS: 73502; 73562

== ENCOUNTER 2024-08-31 14:17 | Outpatient (CLI) | payer MEDICARE, SELFPAY ==
--- NOTE | ~2024-08-31 | CT_ITS ---
Non-contrast CT scan of the Abdomen and Pelvis Clinical indication: Abnormal findings of blood chemistry Technique: 2.5 mm axial scans were obtained through the abdomen and pelvis without intravenous or or al contrast. Dose reduction technique was used on this scan by utilizing automated exposure control a nd iterative reconstruction technique. The dose-length product (DLP) was 247.05 mGy-cm. Findings: Images through the lung bases reveal no abnormalities. Right kidney unremarkable aside from renal cyst. Left kidney is atrophic with severe hydronephrosis a nd abrupt tapering at the UPJ region. There is intrahepatic and extra hepatic biliary dilatation. There is a suspected 1.5 x 1.3 cm hyperde nse stone versus other lesion in the distal common bile duct (axial image 52). The spleen, pancreas, and adrenals appear normal. There are extensive atherosclerotic calcifications of the aorta and iliac vessels. . There is no evidence of bowel obstruction. Images through the pelvis were performed. There is no evidence of ascites or lymphadenopathy. Urinary bladder unremarkable. No pelvic mass seen. There is severe degenerative spondylosis throughout the lumbar spine. There is 7 mm anterolisthesis o f L2 over L3. Impression: Suspected 1.5 x 1.3 cm hyperdense stone versus other lesion in the distal common bile duct. There is associated intrahepatic and extra hepatic biliary dilatation. Consider MRCP or ERCP for further evalu ation as indicated. Correlate with LFTs. 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 Extensive atherosclerotic disease. Reviewed, dictated and finalized at [facility]. Impression: Suspected 1.5 x 1.3 cm hyperdense stone versus other lesion in the distal commo n bile duct. There is associated intrahepatic and extra hepatic biliary dilatat ion. Consider MRCP or ERCP for further evaluation as indicated. Correlate with LFTs. 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 Extensive atherosclerotic disease.
--- OUTSIDE RECORDS SUMMARY | 2024-08-31 14:28 | XMS_ITS | Continuity of Care Document ---
Author Organization [facility] Address [id number] [place] [address] [address] [place] [address] Phone Care Team Providers Care Golf Caddy Name Role Phone January CASTRO, Lukasz Unavailable Unavaila ble Procedures Procedure Date CATARACT SURG W/IOL, 1 STAGE CATARACT SURG W/IOL, 1 STAGE OFFICE/OUTPATIENT VISIT, [facility] OPHTHALMIC BIOMETRY OPHTHALMIC BIOMETRY Advance Directives Directive Yes / No Effective Date File Name No Information Encounters Encounter Description Practice Location Reason(s) For Visit Diagnoses Date Provider Providers Copied on Encounter [facility], [address], [place], [place], [id number], tel:[phone] [facility] No Information 7 January Lal. [address], [address], [place], [place], [id number], [place]. tel:[phone] Referring Provider: Lukasz galeana, [address], [place], [address] . tel:[phone] [facility], [id number] [place], [place] [address] [address], [place], [place], [address], tel:[phone] [facility] No Information 7 January Lal. [address], [address], [place], [place], [address], [place]. tel:[phone] Referring Provider: Lukasz galeana, [address], [place], [address] . tel:[phone] OFFICE/OUTPA TIENT VISIT, NEW [facility], [address], [place], [place], [address], tel:[phone] [facility] No Information 7 aJnuary Lal. [address], [address], [place], [place], [address], . tel:[phone] Referring Provider: Lukasz galeana, [address], [place], [address] . tel:[phone] Family History Family Member Type Diagnosis Age At Onset No Information Payers Payer name Insurance type Covered libertarian ID Authoriza tion(s) [employer] [facility] CI [id number] Social History Type Description Quantity Date Captured Comments Sex Female Smoking Status No Information Chief Complaint And Reason For Visit No Information Reason For Referral Reason For Referral No Information History Of Present Illness Encounter Date Complaint History Of Prese nt Illness No Information Functional Status Date Functional Assessmen t No Information Instructions Date Instruction Additional Infor mation No Information Assessments Type Assessment Date No Information Patient Care Teams Name Effective Dates (start - stop) Status Members No Information
--- OUTSIDE RECORDS SUMMARY | 2024-08-31 14:28 | XMS_ITS | Encounter Summary ---
Author Organization [facility] Address 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) Social History Tobacco Use Types Packs/Day Years Used Date Smoking Tobacco: Never Assessed Comments Unknown Sex and Gender Information Value Date Recorded Sex Assigned at Not on file Legal Sex Female 1:29 PM CDT Gender Identity Not on file Sexual Orientation Not on file documented as of this encounter Plan of Treatment Not on file documented as of this encounter Procedures Procedure Name Priority Date/Time Associated Diagnosis Comments CBC WITH DIFFERENTIAL Routine 12/12/2016 7:25 AM CDT Essential (primary) hypertension Diabetes mellitus due to 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 CHLORIDE 96(L) 98 - 107 mmol/L 12/12/2016 12:13 PM [email or web address] CO2 28 22 - 29 mmol/L 12/12/2016 12:13 PM [email or web address] CALCIUM 8.7 8.6 - 10.2 mg/dL 12/12/2016 12:13 PM [email or web address] BUN 13 8 - 23 mg/dL 12/12/2016 12:13 PM [email or web address] CREATININE 1.08(H) 0.51 - 0.95 mg/dL 12/12/2016 12:13 PM [email or web address] GLUCOSE 151(H) 74 - 99 mg/dL 12/12/2016 12:13 PM [email or web address] TOTAL PROTEIN 7.7 6.7 - 8.6 g/dL 12/12/2016 12:13 PM [email or web address] ALBUMIN 3.5 3.5 - 5.2 g/dL 12/12/2016 12:13 PM [email or web address] BILIRUBIN TOTAL 0.2 0.2 - 1.1 mg/dL 12/12/2016 12:13 PM [email or web address] ALKALINE PHOSPHATASE 98 35 - 104 U/L 12/12/2016 12:13 PM [email or web address] AST 12 <33 U/L 12/12/2016 12:13 PM [email or web address] ALT <5 <34 U/L 12/12/2016 12:13 PM [email or web address] GFR 51(L) >=60 mL/min/1.7 3 sq meter 12/12/2016 12:13 PM [email or web address] Comment: eGFR has not been validated for use in the elderly (> 70 years of age), women, patients with serious co-morbid conditions, or persons with extremes of body size or muscle mass and should also be interpreted with caution in patients with acute kidney failure, dialysis dependent patients, patients reporting exceptional dietary intake (e.g. vegetarian diet, high protein diets, creatine supplementation), and patients with severe liver disease. Based on National Kidney Disease Education Program If patient is , please refer to the GFR result. GFR, >60 >=60 mL/min/1.7 3 sq meter 12/12/2016 12:13 PM T [facility] ANION GAP 16 8 - 16 mmol/L 12/12/2016 12:13 PM [facility] Blood Venipuncture / Unknown 12/12/2016 7:25 AM CDT 12/12/2016 10:43 AM CDT [facility] - 12/12/2016 12:13 PM CDT Samples containing indocyanine green cause interferences on Total and/or Direct Bilirubin and must not be measured. Shekhar Johnson MD CHEMISTRY ORDERABLES Final R esult [facility]# [id number] [address] [facility] [address] * (ABNORMAL) CBC WITH DIFFERENTIAL (12/12/2016 7:25 AM CDT) WBC 5.5 4.0 - 9.8 K/uL 12/12/2016 11:31 AM [facility] RBC 3.04(L) 3.90 - 4.90 M/uL 12/12/2016 11:31 AM [facility] HEMOGLOBIN 8.1(L) 11.8 - 14.8 g/dL 12/12/2016 11:31 AM [facility] HEMATOCRIT 27.5(L) 35.5 - 44.0 % 12/12/2016 11:31 AM [facility] MCV 90.5 82.0 - 99.0 fL 12/12/2016 11:31 AM [facility] MCH 26.6(L) 27.2 - 32.6 pg 12/12/2016 11:31 AM [facility] MCHC 29.5(L) 31.5 - 35.5 g/dL 12/12/2016 11:31 AM [email or web address] RDW 16.1(H) 11.5 - 14.5 % 12/12/2016 11:31 AM CDT [email or web address] RDW-STDEV 53.2(H) 37.1 - 48.7 fL 12/12/2016 11:31 AM [facility] PLATELETS 226 140 - 350 K/uL 12/12/2016 11:31 AM [email or web address] MPV 11.1 9.3 - 12.4 fL 12/12/2016 11:31 AM [email or web address] NEUTROPHILS 70 % 12/12/2016 11:31 AM [email or web address] LYMPHOCYTES 19 % 12/12/2016 11:31 AM [email or web address] MONOCYTES 8 % 12/12/2016 11:31 AM [facility] EOSINOPHILS 2 % 12/12/2016 11:31 AM [facility] BASOPHILS 0 % 12/12/2016 11:31 AM [facility] IMMATURE GRANULOCYTES 0 % 12/12/2016 11:31 AM [facility] NEUTROPHIL ABSOLUTE 3.84 1.90 - 7.00 K/uL 12/12/2016 11:31 AM [facility] LYMPHOCYTE ABSOLUTE 1.06 0.70 - 4.50 K/uL 12/12/2016 11:31 AM [facility] MONOCYTE ABSOLUTE 0.45 0.10 - 1.30 K/uL 12/12/2016 11:31 AM [facility] EOSINOPHIL ABSOLUTE 0.09 0.00 - 0.70 K/uL 12/12/2016 11:31 AM [facility] BASOPHILS ABSOLUTE 0.02 0.00 - 0.20 K/uL 12/12/2016 11:31 AM [facility] IMMATURE GRANULOCYTES ABSOLUTE 0.02 0.00 - 0.03 K/uL 12/12/2016 11:31 AM [facility] Blood Venipuncture / Unknown 12/12/2016 7:25 AM CDT 12/12/2016 10:45 AM CDT Shekhar Johnson MD HEMATOLOGY ORDERABLES Final Result Performing Organization Address City/State/[facility] Co de Phone Number [facility]# [id number] [address] [facility] [place] [address] documented in this encounter Visit Diagnoses Diagnosis Chronic obstructive pulmonary disease (CMS/HCC) Chronic airway obstruction, not elsewhere classified Essential (primary) hypertension Unspecified essential hypertension 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
--- OUTSIDE RECORDS SUMMARY | 2024-08-31 14:28 | XMS_ITS ---
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 Role Phone Waldodenisha Shekhar Morley Unavailable Nilo Rincon Unavailable [phone] Functional Status No Results Mental Status No Results Allergies and Intolerances Name Onset Date Reaction Severity atorvastatin (Allergy) FriNov 28 19:07:00 EDT 2 017 No Known Adverse Reactions duloxetine (Allergy) FriNov 28 19:07:00 EDT 2017 Anxi ety Severe penicillin (Allergy) FriNov 28 19:07:00 EDT 2017 Itch ing Severe prednisone (Allergy) FriNov 28 19:07:00 EDT 201 7 No Known Adverse Reactions rosuvastatin (Allergy) FriNov 28 19:07:00 EDT 2 017 No Known Adverse Reactions Medications Medication Directions Start Date End Date Stiolto Respimat 2.5 mcg-2.5 mcg/actuation solution for inhalation 2 puffs (MIST INHALER (GRAM)) Inhalation Every 1 Day FriJun 17 01:00:00 EDT 2017Jul 03 01:00:00 EDT 2018 Trelegy Ellipta 100 mcg-62.5 mcg-25 mcg powder for inhalation 1 puff (BLISTER, WITH INHALATION DEVICE) Inhalation Every 1 Day FriJun 17 01:00:00 EDT 2017Jul 03 01:00:00 EDT 2017 multivitamin tablet 1 tab (TABLET) Oral Every 1 Day FriJun 17 01:00:00 2017Jul 03 01:00:00 2017 traZODone 100 mg tablet 2 tabs (TABLET) Oral Hour Of Sleep FriJun 17 01:00:00 2017Jul 03:00:00 2017 Xanax 0.5 mg tablet 1 tab (TABLET) Oral PRN three times daily as needed for anxiety FriJun 17 01:00:2017Jul 03 01:00:00 2017 Proventil HFA 90 mcg/actuation aerosol inhaler 2 puffs (HFA AEROSOL WITH ADAPTER (GRAM)) Inhalation PRN Every 6 Hours dyspnea, wheezing, cough FriJun 17 01:00:00 2017Jul 03 01:00:00 2017 furosemide 40 mg tablet 1 tab (TABLET) O ral Every 1 Day FriJun 17:00:00 2017Jul 03 01:00:00 2017 metoprolol tartrate 100 mg tablet 1 tab (TABLET) Oral 2 Times Daily FriJun 17 01:00:00 2017Jul 03 01:00:00 2017 aspirin 81 mg tablet,delayed release 1 tab (TABLET, DELAYED RELEASE (ENTERIC COATED Oral Every 1 Day FriJun 17 01:00:00 2017Jul 03 01:00:00 2017 doxazosin 4 mg tablet 1 tab (TABLET) Ora l Every 1 Day FriJun 17 01:00:00 2017Jul 03 01:00:00 2017 lisinopril 40 mg tablet 1 tab (TABLET) O ral Every 1 Day FriJun 17 01:00:00 2017Jul 03 01:00:00 2017 omeprazole 20 mg capsule,delayed release 1 tab (CAPSULE,DELAYED RELEASE (ENTERIC COATED Oral 2 Times Daily FriJun 17 01:00:00 2017Jul 03 01:00:00 2017 QUEtiapine 50 mg tablet 1 tab (TABLET) O ral Every 1 Day FriJun 17 01:00:00 2017Jul 03 01:00:00 2017 QUEtiapine 50 mg tablet 50 mg TABLET Ora l 1 Time Daily Mood disorder/bipolar FriJun 13 21:00:00 2017Jun 14 01:00:00 EDT 2017 Incruse Ellipta 62.5 mcg/actuation powder for inhalation 2 puffs BLISTER, WITH INHALATION DEVICE Inhalation 1 Time Daily FriJun 10 01:00:00 EDT 2017Jun 14 01:00:00 EDT 2017 Breo Ellipta 100 mcg-25 mcg/dose powder for inhalation 1 puff BLISTER, WITH INHALATION DEVICE Inhalation 1 Time Daily FriJun 10 01:00:00 EDT 2017Jun 13 16:44:00 EDT 2017 Breo Ellipta 100 mcg-25 mcg/dose powder for inhalation 1 puff BLISTER, WITH INHALATION DEVICE Inhalation 1 Time Daily Rinse and spit after use. FriJun 14 09:00:00 EDT 2017Jun 14:00:00 EDT 2017 TUBErsol 5 tub. unit/0.1 mL intradermal injection solution Read Results VIAL (ML) Other 1 Time Weekly for 2 Weeks Read results between 48-72 hours after 1st and 2nd 1 week apart. If positive do chest x-ray to rule out active disease. FriJun 09 13:00:00 EDT 2017Jun 14 01:00:00 EDT 2017 Xanax 0.5 mg tablet 0.5mg TABLET Oral ND N 3 Times Daily Anxiety FriJun 09 15:00:00 EDT 2017Jun 09 16:49:00 EDT 2017 Xanax 0.5 mg tablet 0.5mg TABLET Oral ND N 3 Times Daily Anxiety FriJun 09 16:45:00 EDT 2017Jun 13 16:47:00 EDT 2017 multivitamin with minerals tablet 1 tab TABLET Oral 1 Time Daily FriJun 09 17:00:00 EDT 2017Jun 14 01:00:00 EDT 2017 Pneumovax 23 25 mcg/0.5 mL injection syringe 0.5 ml SYRINGE (ML) Intramuscular 1 Time Daily for 1 Day Pneumonia Vaccine on admission unless contraindicated. FriJun 09 17:00:00 EDT 2017Jun 10 16:59:00 EDT 2017 potassium chloride ER 20 mEq tablet,extended release 40mEq TABLET, EXTENDED RELEASE Oral 1 Time Daily for 7 Days FriJun 10 09:00:00 EDT 2017Jun 14 01:00:00 EDT 2017 potassium chloride ER 20 mEq tablet,extended release 20mEq TABLET, EXTENDED RELEASE Oral 1 Time Daily FriJun 18 09:00:00 EDT 2017Jun 14:00:00 EDT 2017 Xanax 0.5 mg tablet 0.5mg TABLET Oral ND N 3 Times Daily Anxiety FriJun 13 16:45:00 EDT 2017Jun 14 01:00:00 EDT 2017 furosemide 40 mg tablet 1 tablet TABLET Oral 1 Time Daily FriJun 08 16:00:00 EDT 2017Jun 14 01:00:00 EDT 2017 TUBErsol 5 tub. unit/0.1 mL intradermal injection solution 0.1 ml VIAL (ML) Intradermal 1 Time Weekly for 2 Weeks (PPD) 1st injection upon admission. Read between 48 and 72 hours and give 2nd injection 1 week after the 1st if result is negative. If positive result, proceed with chest x-ray to rule out active disease. FriJun 07 13:00:00 EST 2017Jun 14:00:00 EDT 2017 Trelegy Ellipta 100 mcg-62.5 mcg-25 mcg powder for inhalation 1 puff BLISTER, WITH INHALATION DEVICE Inhalation 1 Time Daily Rinse and spit after use. FriJun 09 16:50:00 EDT 2017Jun 10 05:29:00 EDT 2017 oxyCODONE 10 mg tablet 10 mg TABLET Oral PRN Every 4 Hours FriJun 06 20:00:00 EST 2017Jun 14 01:00:00 EDT 2017 metoprolol tartrate 100 mg tablet 100 mg TABLET Oral 2 Times Daily FriJun 06 21:00:00 EST 2017Jun 14 01:00:00 EDT 2017 Proventil HFA 90 mcg/actuation aerosol inhaler 2 puffs HFA AEROSOL WITH ADAPTER (GRAM) Inhalation PRN Every 6 Hours FriJun 06 21:00:00 2017Jun 09 16:47:00 EDT 2017 ALPRAZolam 0.5 mg tablet 0.5 mg TABLET O ral PRN Every 4 Hours FriJun 06 21:00:00 EST 2017Jun 09 15:45:00 EDT 2017 aspirin 81 mg chewable tablet 81 mg TABLET, CHEWABLE Oral 1 Time Daily FriJun 07 09:00:00 EST 2017Jun 14 01:00:00 EDT 2017 doxazosin 4 mg tablet 4 mg TABLET Oral 1 Time Daily FriJun 07 21:00:00 EST 2017Jun 14 01:00:00 EDT 2017 furosemide 20 mg tablet 20 mg TABLET Ora l 1 Time Daily FriJun 07 09:00:00 EST 2017 11 15:32:00 EDT 2017 lisinopril 40 mg tablet 40 mg TABLET Ora l 1 Time Daily FriJun 07 09:00:00 EST 2017Jun 14 01:00:00 EDT 2017 omeprazole 20 mg capsule,delayed release 20 mg CAPSULE,DELAYED RELEASE (ENTERIC COATED) Oral 2 Times Daily FriJun 07 09:00:00 EST 2017Jun 14 01:00:00 EDT 2017 Trelegy Ellipta 100 mcg-62.5 mcg-25 mcg powder for inhalation 1 puff BLISTER, WITH INHALATION DEVICE Inhalation 1 Time Daily FriJun 07 09:00:00 EST 2017Jun 09 16:51:00 EDT 2017 QUEtiapine 50 mg tablet 50 mg TABLET Ora l 1 Time Daily FriJun 06 21:00:00 EST 2017Jun 13 16:50:00 EDT 2017 traZODone 100 mg tablet 200 mg TABLET Or al 1 Time Daily FriJun 06 21:00:00 EST 2017Jun 09 16:55:00 EDT 2017 Stiolto Respimat 2.5 mcg-2.5 mcg/actuation solution for inhalation 2 puffs MIST INHALER (GRAM) Inhalation 1 Time Daily FriJun 07 09:00:00 EST 2017Jun 09 16:57:00 EDT 2017 Proventil HFA 90 mcg/actuation aerosol inhaler 2 puffs HFA AEROSOL WITH ADAPTER (GRAM) Inhalation PRN Every 6 Hours Rinse and spit after use. FriJun 09 16:45:00 EDT 2017Jun 14 01:00:00 EDT 2017 traZODone 100 mg tablet 200 mg TABLET Or al 1 Time Daily FriJun 09 16:55:00 EDT 2017Jun 14 01:00:00 EDT 2017 Stiolto Respimat 2.5 mcg-2.5 mcg/actuation solution for inhalation 2 puffs MIST INHALER (GRAM) Inhalation 1 Time Daily Rinse and spot after use. FriJun 09 17:00:00 EDT 2017Jun 10 16:21:00 EDT 2017 silver sulfadiazine 1 % topical cream 1 application (CREAM (GRAM)) Topical Every 1 Day FriJan 10 01:00:00 EDT 2016Jan 16 17:45:00 EDT 2016 lisinopril 40 mg tablet 1 tab (TABLET) O ral Every 1 Day FriDec 23 01:00:00 EDT 2016Jan 23:00:00 EDT 2016 Benadryl Allergy 25 mg tablet 1 tab (TABLET) Oral PRN every 6 hours as needed for itching Nina Sep 20 04:00:00 EDT 2016Jan 23:00:00 EDT 2017 omeprazole 20 mg capsule,delayed release 1tab (CAPSULE,DELAYED RELEASE (ENTERIC COATED Oral 2 Times Daily Nina Sep 20 04:00:00 EDT 2016Jan 23:00:00 EDT 2017 Compazine 10 mg tablet 1 tab (TABLET) Or al PRN every 6 hours as needed for nausea Nina Sep 20 04:00:00 EDT 2016Jan 23:00:00 EDT 2017 Eliquis 2.5 mg tablet 1 tab (TABLET) Ora l 2 Times Daily Nina Sep 20 04:00:00 EDT 2016Jan 23:00:00 EDT 2017 Spiriva Respimat 2.5 mcg/actuation solution for inhalation 2 puffs (MIST INHALER (GRAM)) Inhalation Every 1 Day Nina Sep 20 04:00:00 EDT 2016Jan 23:00:00 EDT 2017 albuterol sulfate HFA 90 mcg/actuation aerosol inhaler 2 puffs (HFA AEROSOL WITH ADAPTER (GRAM)) Inhalation PRN every 6 hours as needed for shortness of breath Nina Sep 20 04:00:00 EDT 2016Jan 23:00:00 EDT 2017 lidocaine 5 % topical patch 1 (ADHESIVE PATCH, MEDICATED) Topical Every 1 Day Nina Sep 20 04:00:00 EDT 2016Jan 23:00:00 EDT 2017 melatonin 3 mg tablet 1 tab (TABLET) Ora l PRN Qhs as needed for sleep Nina Sep 20 04:00:00 EDT 2016Jan 23:00:00 EDT 2017 doxazosin 4 mg tablet 1 tab (TABLET) Ora l Every 1 Day Nina Sep 20 04:00:00 EDT 2016Jan 23:00:00 EDT 2017 aspirin 81 mg chewable tablet 1 tab (TABLET, CHEWABLE) Oral Every 1 Day Nina Sep 20 04:00:00 EDT 2016Jan 23:00:00 EDT 2017 acetaminophen 325 mg tablet 2 tabs (TABLET) Oral PRN every 4 hours as needed for pain Nina Sep 21 01:00:00 EDT 2016u Oct 26 01:00:00 EDT 2016 Iron (ferrous sulfate) 325 mg (65 mg iron) tablet 1 tab (TABLET) Oral Every 1 Day Nina Sep 21 01:00:00 EDT 2016 Nina Oct 26 01:00:00 EDT 2016 Benadryl 25 mg capsule 25mg CAPSULE Oral PRN Every 6 Hours itching Sun Sep 17 21:00:00 EDT 2016 Mon Sep 18 01:00:00 EDT 2016 omeprazole 20 mg capsule,delayed release 20mg CAPSULE,DELAYED RELEASE (ENTERIC COATED) Oral 2 Times Daily GERD Fri Sep 15 18:00:00 EDT 2016 Mon Sep 18 01:00:00 EDT 2016 glimepiride 2 mg tablet 1 tablet TABLET Oral 1 Time Daily Nina Sep 14 20:00:00 EDT 2016 [facility] Sep 18 01:00:00 EDT 2016 metoprolol tartrate 75 mg tablet 1 tablet TABLET Oral 2 Times Daily Wed Sep 13 18:00:00 EDT 2016 [facility] Sep 18 01:00:00 EDT 2016 metFORMIN 500 mg tablet 2 tabs TABLET Or al 1 Time Daily for 7 Days [facility] Sep 07:00:00 EDT 2016 Nina Sep 14 15:42:00 EDT 2016 metFORMIN 500 mg tablet 3 tabs TABLET Or al 1 Time Daily for 7 Days [facility] 07:00:00 EDT 2016 Nina Sep 14 15:42:00 EDT 2016 metFORMIN 500 mg tablet 4 tabs TABLET Or al 1 Time Daily [facility] Dec 31 07:00:00 EDT 2016 Nina Sep 14 15:42:00 EDT 2016 metFORMIN ER 500 mg tablet,extended release 24hr 500mg TABLET, EXTENDED RELEASE 24 HR Oral 1 Time Daily for 7 Days [facility] Sep 07:00:00 EDT 2016 Nina Sep 14 17:36:00 EDT 2016 metFORMIN ER 1,000 mg tablet,extended release 24hr 1,000mg TABLET, EXTENDED RELEASE 24 HR Oral 1 Time Daily for 7 Days [facility] Sep 19 07:00:00 EDT 2016 [facility] Sep 12 14:34:00 EDT 2016 metFORMIN ER 1,000 mg tablet,extended release 24hr 1,500mg TABLET, EXTENDED RELEASE 24 HR Oral 1 Time Daily for 7 Days [facility] Sep 07:00:00 EDT 2016Dec 10 14:35:00 EDT 2016 metFORMIN ER 1,000 mg tablet,extended release 24hr 2000mg TABLET, EXTENDED RELEASE 24 HR Oral 1 Time Daily DM FriDec 31 07:00:00 EDT 2016Dec 10 14:37:00 EDT 2016 Compazine 10 mg tablet 10mg TABLET Oral PRN Every 6 Hours nausea/vomitting FriDec 09 21:00:00 EDT 2016Dec 16 01:00:00 EDT 2016 Eliquis 2.5 mg tablet 2.5mg TABLET Oral 2 Times Daily FriDec 04 12:00:00 EDT 2016Dec 16 01:00:00 EDT 2016 lidocaine 5 % topical patch 1 patch ADHESIVE PATCH, MEDICATED Transdermal 1 Time Daily for 14 Days Pain FriDec 02 17:00:00 EDT 2016Dec 16 01:00:00 EDT 2016 oxyCODONE 5 mg tablet 5mg TABLET Oral ND N Every 6 Hours Pain FriDec 02 11:45:00 EDT 2016Dec 16 01:00:00 EDT 2016 albuterol sulfate HFA 90 mcg/actuation aerosol inhaler 2 puffs HFA AEROSOL WITH ADAPTER (GRAM) Inhalation PRN Every 6 Hours SOB, Wheezing FriDec 02 11:50:00 EDT 2016Dec 16 01:00:00 EDT 2016 Spiriva Respimat 2.5 mcg/actuation solution for inhalation 2 puffs MIST INHALER (GRAM) Inhalation 1 Time Daily SOB FriDec 02 11:50:00 EDT 2016Dec 16 01:00:00 EDT 2016 Pneumovax 23 25 mcg/0.5 mL injection syringe 0.5 ml SYRINGE (ML) Intramuscular 1 Time Daily for 1 Day Pneumonia Vaccine on admission unless contraindicated. FriDec 02 13:00:00 EDT 2016Dec 03 12:59:00 EDT 2016 ALPRAZolam 0.5 mg tablet 0.5 mg 0.5mg TABLET Oral PRN Every 6 Hours Anxiety FriNov 30 15:00:00 EDT 2016Dec 16 01:00:00 EDT 2017 TUBErsol 5 tub. unit/0.1 mL intradermal injection solution 0.1 ml VIAL (ML) Intradermal 1 Time Weekly for 2 Weeks (PPD) 1st injection upon admission. Read between 48 and 72 hours and give 2nd injection 1 week after the 1st if result is negative. If positive result, proceed with chest x-ray to rule out active disease. FriNov 29 07:00:00 EDT 2016 Fri Sep 15 06:59:00 EDT 2017 TUBErsol 5 tub. unit/0.1 mL intradermal injection solution Read Results VIAL (ML) Other 1 Time Weekly for 2 Weeks Read results between 48-72 hours after 1st and 2nd 1 week apart. If positive do chest x-ray to rule out active disease. FriNov 29 07:00:00 EDT 2016 Sep 06:59:00 EDT 2016 ALPRAZolam 0.5 mg tablet 0.5mg TABLET Or al PRN Every 6 Hours Anxiety Fri Sep 19:00:00 EDT 2016 [facility] Sep 02 14:48:00 EDT 2016 melatonin 3 mg tablet 3mg TABLET Oral 1 Time Daily Insomnia FriNov 29 19:00:00 EDT 2016 Mon Sep 18 01:00:00 EDT 2016 acetaminophen 325 mg tablet 650mg TABLET Oral PRN Every 4 Hours Fever FriNov 29 07:00:00 EDT 2016 Mon Sep 18 01:00:00 EDT 2017 Eliquis 2.5 mg tablet 2.5mg TABLET Oral 2 Times Daily Blood Clot FriNov 28 16:00:00 ED2016 Sat Sep 02 21:53:00 EDT 2017 baclofen 10 mg tablet 0.5tab TABLET Oral 3 Times Daily Pain FriNov 28 16:00:00 ED2016 Mon Sep 18 01:00:00 EDT 2017 lidocaine 5 % topical patch 1 patch ADHESIVE PATCH, MEDICATED Topical 1 Time Daily for 14 Days Pain FriNov 28 16:00:00 ED2016 Mon Sep 04 11:37:00 EDT 2017 melatonin 3 mg tablet 3mg TABLET Oral 1 Time Daily for 30 Days Insomnia FriNov 28 16:00:00 ED2016Nov 28 17:13:00 EDT 2016 oxyCODONE 5 mg tablet 5 mg 5mg TABLET Or al PRN Every 6 Hours Pain FriNov 28 16:00:00 ED2016 Mon Sep 04 11:46:00 EDT 2016 ALPRAZolam 0.5 mg tablet 0.5mg TABLET Or al PRN 4 Times Daily Anxiety FriNov 28 16:00:00 ED2016 Fri Sep 19:12:00 EDT 2016 metoprolol tartrate 25 mg tablet 25mg TABLET Oral 3 Times Daily HTN FriNov 28 16:00:00 EDT 2016 13 14:15:00 EDT 2016 albuterol sulfate HFA 90 mcg/actuation aerosol inhaler 2 puffs HFA AEROSOL WITH ADAPTER (GRAM) Inhalation PRN Every 6 Hours SOB, Wheezing FriNov 29 07:00:00 ED2016Dec 02 11:49:00 EDT 2016 Aspirin Childrens 81 mg chewable tablet 81mg TABLET, CHEWABLE Oral 1 Time Daily Blood thinner FriNov 28 16:00:00 ED2016Dec 16 01:00:00 EDT 2016 doxazosin 4 mg tablet 4mg TABLET Oral 1 Time Daily HTN FriNov 28 18:00:00 ED2016Dec 16 01:00:00 ED2016 furosemide 40 mg tablet 40mg TABLET Oral Every 3 Days CHF FriNov 28 17:00:00 ED2016Dec 16 01:00:00 ED2016 omeprazole 20 mg capsule,delayed release 20mg CAPSULE,DELAYED RELEASE (ENTERIC COATED) Oral 1 Time Daily GERD FriNov 28 17:00:00 ED2016Nov 28 17:12:00 ED2016 omeprazole 20 mg capsule,delayed release 20mg CAPSULE,DELAYED RELEASE (ENTERIC COATED) Oral 1 Time Daily GERD FriNov 28 17:00:00 ED2016Dec 13 17:51:00 EDT 2016 melatonin 3 mg tablet 3mg TABLET Oral 1 Time Daily for 30 Days Insomnia FriNov 28 17:00:00 ED2016Nov 29 19:17:00 EDT 2016 Spiriva Respimat 2.5 mcg/actuation solution for inhalation 2 puffs MIST INHALER (GRAM) Inhalation 2 Times Daily SOB FriNov 29 07:00:00 ED2016Dec 02 11:52:00 EDT 2016 traZODone 100 mg tablet 100mg TABLET Ora l 2 Times Daily Anxiety, depression FriNov 28 17:00:00 ED2016Dec 16 01:00:00 EDT 2016 HumaLOG 100 unit/mL subcutaneous cartridge 0 CARTRIDGE (ML) Subcutaneous 4 Times Daily Sliding Scale Insulin: Blood Sugar < 70 or > 401 Notify MD;70-150, 0 Units;151-200, 3 Units;201-250, 6 Units;251-300, 9 Units;301-350, 12 Units;351-400, 15 Units;. FriNov 28 21:00:00 ED2016Dec 16 01:00:00 EDT 2016 metoprolol tartrate 25 mg tablet 3 tabs (TABLET) Oral 2 Times Daily 75 mg total dose bid FriMar 31 01:00:00 EST 2016Jan 23 01:00:00 EDT 2016 ALPRAZolam 0.5 mg tablet 1 tab (TABLET) Oral PRN every 6 hours as needed for anxiety FriMar 31 01:00:00 EST 2016Jan 23 01:00:00 EDT 2016 furosemide 40 mg tablet 1 tab (TABLET) O ral Every 3 Days every 3 days next dose 12/19/16FriMar 31 01:00:00 EST 2016Jan 23 01:00:00 EDT 2016 traZODone 100 mg tablet 2 tabs (TABLET) Oral Hour Of Sleep FriMar 31 01:00:00 EST 2016Jan 23 01:00:00 EDT 2016 Problems Active Concerns * Diverticulitis of large intestine with perforation and abscess with bleeding* Code: * Start Date: FriNov 28 00:00:00 EDT 2016 * End Date: * Text: * Encounter for surgical aftercare following surgery on the digestive system* Code: * Start Date: FriNov 28 00:00:00 EDT 2016 * End Date: * Text: * Severe sepsis with septic shock* Code: * Start Date: FriNov 28 00:00:00 EDT 2016 * End Date: * Text: * Respiratory failure, unspecified with hypercapnia* Code: * Start Date: FriNov 28 00:00:00 EDT 2016 * End Date: * Text: * Peritonitis, unspecified* Code: * Start Date: FriNov 28 00:00:00 EDT 2016 * End Date: * Text: * Acute posthemorrhagic anemia* Code: * Start Date: FriNov 28 00:00:00 EDT 2016 * End Date: * Text: * Unspecified atrial fibrillation* Code: * Start Date: FriNov 28 00:00:00 EDT 2016 * End Date: * Text: * Acute pulmonary insufficiency following nonthoracic surgery* Code: * Start Date: FriNov 28 00:00:00 EDT 2016 * End Date: * Text: * Chronic obstructive pulmonary disease, unspecified* Code: * Start Date: FriNov 28 00:00:00 EDT 2016 * End Date: * Text: * Mild protein-calorie malnutrition* Code: * Start Date: FriNov 28 00:00:00 EDT 2016 * End Date: * Text: * Acute kidney failure, unspecified* Code: * Start Date: FriNov 28 00:00:00 EDT 2016 * End Date: * Text: * Anemia, unspecified* Code: * Start Date: FriNov 28 00:00:00 EDT 2016 * End Date: * Text: * Old myocardial infarction* Code: * Start Date: FriNov 28 00:00:00 EDT 2016 * End Date: * Text: * Colostomy status* Code: * Start Date: FriNov 28 00:00:00 EDT 2016 * End Date: * Text: * Disruption of external operation (surgical) wound, not elsewhere classified, subsequent encounter* Code: * Start Date: FriNov 28 00:00:00 EDT 2016 * End Date: * Text: * Type 2 diabetes mellitus without complications* Code: * Start Date: FriNov 28 00:00:00 EDT 2016 * End Date: * Text: * Hypertensive heart and chronic kidney disease with heart failure and stage 1 through stage 4 chronic kidney disease, or unspecified chronic kidney disease * Code: * Start Date: FriNov 28 00:00:00 EDT 2016 * End Date: * Text: * Unspecified diastolic (congestive) heart failure* Code: * Start Date: FriNov 28 00:00:00 EDT 2016 * End Date: * Text: * Chronic kidney disease, unspecified* Code: * Start Date: FriNov 28 00:00:00 EDT 2016 * End Date: * Text: * Gastro-esophageal reflux disease without esophagitis* Code: * Start Date: FriNov 28 00:00:00 EDT 2016 * End Date: * Text: * Overactive bladder* Code: * Start Date: FriNov 28 00:00:00 EDT 2016 * End Date: * Text: * 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* Code: * Start Date: FriNov 28 00:00:00 EDT 2016 * End Date: * Text: * Generalized anxiety disorder* Code: * Start Date: FriNov 28 00:00:00 EDT 2016 * End Date: * Text: * Insomnia, unspecified* Code: * Start Date: FriNov 28 00:00:00 EDT 2016 * End Date: * Text: * Major depressive disorder, single episode, unspecified* Code: * Start Date: FriNov 28 00:00:00 EDT 2016 * End Date: * Text: * Type 2 diabetes mellitus with diabetic chronic kidney disease* Code: * Start Date: FriDec 19 00:00:00 EDT 2016 * End Date: * Text: * Morbid (severe) obesity due to excess calories* Code: * Start Date: FriDec 19 00:00:00 EDT 2016 * End Date: * Text: * Acquired absence of other specified parts of digestive tract* Code: * Start Date: FriDec 19 00:00:00 EDT 2016 * End Date: * Text: * Body mass index [BMI]40.0-44.9, adult* Code: * Start Date: FriDec 19 00:00:00 EDT 2016 * End Date: * Text: * Personal history of nicotine dependence* Code: * Start Date: FriDec 19 00:00:00 EDT 2016 * End Date: * Text: * 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* Code: * Start Date: FriDec 19 00:00:00 EDT 2016 * End Date: * Text: * Sepsis, unspecified organism* Code: * Start Date: FriDec 19 00:00:00 EDT 2016 * End Date: * Text: * Diverticulitis of intestine, part unspecified, with perforation and abscess without bleeding* Code: * Start Date: FriDec 19 00:00:00 EDT 2016 * End Date: * Text: * Disruption of external operation (surgical) wound, not elsewhere classified, initial encounter* Code: * Start Date: FriDec 19 00:00:00 EDT 2016 * End Date: * Text: * Chronic kidney disease, stage 2 (mild)* Code: * Start Date: FriJun 06 00:00:00 EST 2017 * End Date: * Text: * Atherosclerotic heart disease of [place] coronary artery without angina pectoris* Code: * Start Date: FriJun 06 00:00:00 2017 * End Date: * Text: * Hyperlipidemia, unspecified* Code: * Start Date: FriJun 06 00:00:00 2017 * End Date: * Text: * Hypokalemia* Code: * Start Date: FriJun 06 00:00:00 EST 2017 * End Date: * Text: * Insomnia due to other mental disorder* Code: * Start Date: FriJun 06 00:00:00 EST 2017 * End Date: * Text: * 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* Code: * Start Date: FriJun 06 00:00:00 EST 2017 * End Date: * Text: * Diverticulitis of intestine, part unspecified, without perforation or abscess without bleeding* Code: * Start Date: FriJun 17 00:00:00 EDT 2017 * End Date: * Text: * Personal history of pulmonary embolism* Code: * Start Date: FriJun 17 00:00:00 EDT 2017 * End Date: * Text: Reason for Referral Past Medical History Resolved Concerns * Problem Essential (primary) hypertension* Code: * Start Date: FriNov 28 00:00:00 EDT 2016 * End Date: FriNov 28 00:00:00 EDT 2016 * Problem Personal history of pulmonary embolism* Code: * Start Date: FriNov 28 00:00:00 EDT 2016 * End Date: FriNov 28 00:00:00 EDT 2017
--- OUTSIDE RECORDS SUMMARY | 2024-08-31 14:28 | XMS_ITS | Clinical Summary ---
Author Organization [facility] Address [address] [place] [id number] Phone Care Team Providers Care News Reel Cameraman Name Role Phone Unavailable Primary Care Provider Unavailabl e Social History Tobacco Use Types Packs/Day Years Used Date Smoking Tobacco: Never Assessed Comments Unknown Sex and Gender Information Value Date Recorded Sex Assigned at Not on file Legal Sex Female 1:29 PM CDT Gender Identity Not on file Sexual Orientation Not on file Plan of Treatment Health Maintenance Due Date Last Done Comments DTAP/TDAP/TD VACCINES (1 - Tdap) 1968 COLORECTAL SCREENING 1994 Colorectal Cancer Screening 1994 FIT-DNA Q 3 years 1994 FIT/FOBT Q 1 year 1994 Flex Sig/CT Colonography Q 5 years 1994 PNEUMOCOCCAL VACCINE 50+ YEARS (1 of 1 - PCV) 04/23/19 00 ZOSTER VACCINE (1 of 2) 1999 OSTEOPOROSIS SCREENING 2014 INFLUENZA VACCINE (#1) 2023 RSV VACCINE (60+ or ) (1 - 1-dose 75+ series) 2024
--- OUTSIDE RECORDS SUMMARY | 2024-08-31 14:28 | XMS_ITS | Encounter Summary ---
Author Organization [employer] Address [address] [place] [address] Care Team Providers Care Gas Attendant Name Role Phone Unavailable Primary Care Provider Unavailabl e Encounter Details Date Type Department Care Team (Late st Contact Info) Description 12/13/2016 Lab Requisition [facility] [address] [place] [address] Shekhar Johnson MD [address] [place] [address] Anemia Social History Tobacco Use Types Packs/Day Years Used Date Smoking Tobacco: Never Assessed Comments Unknown Sex and Gender Information Value Date Recorded Sex Assigned at Not on file Legal Sex Female 1:29 PM CDT Gender Identity Not on file Sexual Orientation Not on file documented as of this encounter Plan of Treatment Not on file documented as of this encounter Visit Diagnoses Diagnosis Anemia Anemia, unspecified documented in this encounter
--- OUTSIDE RECORDS SUMMARY | 2024-08-31 14:28 | XMS_ITS | Encounter Summary ---
Author Organization [employer] Address [address] [place] [address] Care Team Providers Care Clinical Study Manager Name Role Phone Unavailable Primary Care Provider Unavailabl e Encounter Details Date Type Department Care Team (Late st Contact Info) Description 06/25/2017 Lab Requisition [facility] Laboratory [facility] [address] [place] [address] [place] [address] Shekhar Johnson MD [address] [place] [address] Encounter for general adult medical examination without abnormal findings Social History Tobacco Use Types Packs/Day Years Used Date Smoking Tobacco: Never Assessed Comments Unknown Sex and Gender Information Value Date Recorded Sex Assigned at Not on file Legal Sex Female 1:29 PM CDT Gender Identity Not on file Sexual Orientation Not on file documented as of this encounter Plan of Treatment Not on file documented as of this encounter Visit Diagnoses Diagnosis Encounter for general adult medical examination without abnormal findings Routine general medical examination at a health care facility documented in this encounter
--- OUTSIDE RECORDS SUMMARY | 2024-08-31 14:28 | XMS_ITS | Encounter Summary ---
Author Organization [employer] Address [address] [place] [address] Care Team Providers Care Clinical Medical Assistant Name Role Phone Unavailable Primary Care Provider Unavailabl e Encounter Details Date Type Department Care Team (Late st Contact Info) Description 12/06/2016 Lab Requisition [facility] Laboratory Services [address] [place] [address] [place] [address] Shekhar Johnson MD [address] [place] [address] Anemia Social History Tobacco Use [...] Associated Diagnosis Comments CBC WITH DIFFERENTIAL Routine 12/06/2016 6:10 AM CDT Anemia documented in this encounter Results * (ABNORMAL) CBC WITH DIFFERENTIAL (12/06/2016 6:10 AM CDT) WBC 3.9(L) 4.0 - 9.8 K/uL 12/06/2016 8:47 AM CDT [facility] RBC 2.93(L) 3.90 - 4.90 M/uL 12/06/2016 8:47 AM CDT [facility] HEMOGLOBIN 8.1(L) 11.8 - 14.8 g/dL 12/06/2016 8:47 AM CDT [facility] HEMATOCRIT 27.2(L) 35.5 - 44.0 % 12/06/2016 8:47 AM CDT [facility] MCV 92.8 82.0 - 99.0 fL 12/06/2016 8:47 AM CDT [facility] MCH 27.6 27.2 - 32.6 pg 12/06/2016 8:47 AM CDT [facility] - [facility] MCHC 29.8(L) 31.5 - 35.5 g/dL 12/06/2016 8:47 AM CDT [facility] - [facility] RDW 15.9(H) 11.5 - 14.5 % 12/06/2016 8:47 AM CDT [facility] RDW-STDEV 52.7(H) 37.1 - 48.7 fL 12/06/2016 8:47 AM CDT [facility] - [facility] [place] PLATELETS 208 140 - 350 K/uL 12/06/2016 8:47 AM CDT [facility] - . [facility] MPV 11.0 9.3 - 12.4 fL 12/06/2016 8:47 AM CDT [facility] NEUTROPHILS 60 % 12/06/2016 8:47 AM CDT [facility] LYMPHOCYTES 24 % 12/06/2016 8:47 AM CDT [facility] MONOCYTES 10 % 12/06/2016 8:47 AM CDT [facility] EOSINOPHILS 6 % 12/06/2016 8:47 AM CDT [facility] BASOPHILS 1 % 12/06/2016 8:47 AM CDT [employer] [facility]ATORY SERVICES - . [place] IMMATURE GRANULOCYTES 0 % 12/06/2016 8:47 AM CDT [facility] NEUTROPHIL ABSOLUTE 2.35 1.90 - 7.00 K/uL 12/06/2016 8:47 AM CDT [facility] LYMPHOCYTE ABSOLUTE 0.94 0.70 - 4.50 K/uL 12/06/2016 8:47 AM CDT [facility] MONOCYTE ABSOLUTE 0.37 0.10 - 1.30 K/uL 12/06/2016 8:47 AM CDT [facility] EOSINOPHIL ABSOLUTE 0.22 0.00 - 0.70 K/uL 12/06/2016 8:47 AM CDT [facility] BASOPHILS ABSOLUTE 0.02 0.00 - 0.20 K/uL 12/06/2016 8:47 AM CDT [facility] - [facility] IMMATURE GRANULOCYTES ABSOLUTE 0.00 0.00 - 0.03 K/uL 12/06/2016 8:47 AM CDT [facility] - [facility] Blood Venipuncture / Unknown 12/06/2016 6:10 AM CDT 12/06/2016 8:22 AM CDT Shekhar Johnson MD HEMATOLOGY ORDERABLES Final Result [facility] [id number] [address] [place] [address] documented in this encounter Visit Diagnoses Diagnosis Anemia Anemia, unspecified documented in this encounter
--- OUTSIDE RECORDS SUMMARY | 2024-08-31 14:28 | XMS_ITS ---
Author Name Auto Generated, Auto Generated Organization [employer] [employer] [facility] ices Address [address] [place] [address] Phone [phone] Care Team Providers Care Pigment And Lacquer Mixer Name Role Phone Waldodenisha Shekhar Morley Unavailable Nilo Rincon Unavailable [phone] Functional Status No Results Mental Status No [...] Xanax 0.5 mg tablet 0.5mg TABLET Oral WA N 3 Times Daily Anxiety FriJun 09 15:00:00 EDT 2017Jun 09 16:49:00 EDT 2017 Xanax 0.5 mg tablet 0.5mg TABLET Oral WA N 3 Times Daily Anxiety FriJun 09 [...] Xanax 0.5 mg tablet 0.5mg TABLET Oral WA N 3 Times Daily Anxiety FriJun 13 [...] Daily Nina Sep 14 20:00:00 EDT 2016 [facility] Sep 18 01:00:00 EDT 2016 metoprolol tartrate 75 mg tablet 1 tablet TABLET Oral 2 Times Daily Wed Sep 13 18:00:00 EDT 2016 [facility] Sep 18 01:00:00 EDT 2016 metFORMIN 500 mg tablet 2 tabs TABLET Or al 1 Time Daily for 7 Days [facility] Sep 07:00:00 EDT 2016 Nina Sep 14 15:42:00 EDT 2016 metFORMIN 500 mg tablet 3 tabs TABLET Or al 1 Time Daily for 7 Days [facility] 07:00:00 EDT 2016 Nina Sep 14 15:42:00 EDT 2016 metFORMIN 500 mg tablet 4 tabs TABLET Or al 1 Time Daily [facility] Dec 31 07:00:00 EDT 2016 Nina Sep 14 15:42:00 EDT 2016 metFORMIN ER 500 mg tablet,extended release 24hr 500mg TABLET, EXTENDED RELEASE 24 HR Oral 1 Time Daily for 7 Days [facility] Sep 07:00:00 EDT 2016 Nina Sep 14 17:36:00 EDT 2016 metFORMIN ER 1,000 mg tablet,extended release 24hr 1,000mg TABLET, EXTENDED RELEASE 24 HR Oral 1 Time Daily for 7 Days [facility] Sep 19 07:00:00 EDT 2016 [facility] Sep 12 14:34:00 EDT 2016 metFORMIN ER 1,000 mg tablet,extended release 24hr 1,500mg TABLET, EXTENDED RELEASE 24 HR Oral 1 Time Daily for 7 Days [facility] Sep 07:00:00 EDT 2016Dec 10 14:35:00 EDT [...] oxyCODONE 5 mg tablet 5mg TABLET Oral WA N Every 6 Hours Pain FriDec 02 [...] Hours Anxiety Fri Sep 19:00:00 EDT 2016 [facility] Sep 02 14:48:00 EDT 2016 melatonin 3 [...] 2016 * End Date: * Text: * 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
--- OUTSIDE RECORDS SUMMARY | 2024-08-31 14:28 | XMS_ITS | Clinical Summary ---
Author Organization [facility] [employer] Address [address] [place] [address] Care Team Providers Care Management Liaison Name Role Phone Nilo Rincon MD Primary Care Provider + Source Comments [facility],non-owned Affiliates and Associated Physician Practices is amultiple site organization consisting of ambulatory clinics and hospital sitesin [place], [place], [place] and [place]. This disclosure is being madepursuant to the Care Everywhere program and may not contain all information available regarding this patient. Last updated 17.[facility] [employer] Allergies Active Allergy Reactions Criticality Noted Date Comments Atorvastatin Other Low 11/08/2016 Cramps Duloxetine Diarrhea Low 11/08/2016 Penicillins Other Low 11/08/2016 jittery Prednisone Other Low 11/08/2016 jittery Rosuvastatin Other Low 11/08/2016 Muscle spasm Medications * Be aware that medications may not be up to date on this document. Alwaysverify current medications with the patient. oxyCODONE, immediate release, 10 MG tablet Take 10 mg by mouth q4h PRN. 30 tablet 0 8 Active Additional Information Patient not taking.Reported on 10/30/2017 metoprolol tartrate (LOPRESSOR) 100 MG tablet Take 100 mg by mouth BID. 8 Active Fluticasone-Ume clidin-Vilant (TRELEGY ELLIPTA) 100-62.5-25 MCG/INH AEPB Inhale 1 puff by mouth DAILY. 8 Active aspirin-acetami nophen-caffeine 250-250-65 MG tablet Take by mouth. 7 Active lisinopril (PRINIVIL; ZESTRIL) 40 MG tablet Take 40 mg by mouth DAILY. 7 Active ALPRAZolam (XANAX) 0.5 MG tablet Take 0.5 mg by mouth q4h PRN (Insomnia). 30 tablet 0 7 Active albuterol HFA (PROVENTIL HFA) 108 (90 BASE) MCG/ACT inhaler Inhale 2 puffs by mouth q6h PRN (Wheezing, Shortness of Breath). 7 Active Tiotropium Blue Bell-Olodate rol (STIOLTO RESPIMAT) 2.5-2.5 MCG/ACT Inhale 2 puffs by mouth DAILY. 7 Active aspirin (ASPIRIN) 81 MG chew tablet Take 81 mg by mouth DAILY. 7 Active traZODone (DESYREL) 100 MG tablet Take 200 mg by mouth. 7 Active furosemide (LASIX) 40 MG tablet Take 20 mg by mouth DAILY. 7 Active acetaminophen (TYLENOL) 325 MG tablet Take 650 mg by mouth every 4 hours as needed for Fever 7 Active apixaban (ELIQUIS) 5 MG tablet Take 5 mg by mouth 2 times daily 7 Active Aspirin-Acetami nophen-Caffeine (EXCEDRIN PO) Active baclofen (LIORESAL) 10 MG tablet Take 5 mg by mouth 3 times daily 7 Active insulin lispro (HUMALOG) 100 UNIT/ML vial 7 Active traMADol (ULTRAM) 50 MG tablet 8 Active diphenoxylate-a tropine (LOMOTIL) 2.5-0.025 MG tablet 9 Active ibuprofen (Motrin) 600 MG tablet Take 1 (one) tablet by mouth every 8 hours as needed for Pain 30 tablet 2 Active Active Problems Problem Noted Date Diagnosed Date Diverticulosis of colon 10/30/2017 Acute kidney failure 06/02/2017 Other acute postprocedural pain 06/02/2017 Colostomy status 05/28/2017 Disorder of kidney and ureter 11/22/2016 Anemia 11/21/2016 Respiratory failure with hypercapnia 11/21/2016 Hyperglycemia 11/21/2016 Fluid overload 11/21/2016 Essential (primary) hypertension 11/11/2016 Atrial fibrillation 11/11/2016 Acute pulmonary insufficiency following nonthora cic surgery 11/11/2016 Mild protein-calorie malnutrition 11/11/2016 Diverticulitis of large inte richar with perforation and abscess without bleeding 11/11/2016 Chronic obstructive pulmonary disease 11/11/2016 Acute posthemorrhagic anemia 11/09/2016 Sepsis 11/08/2016 Severe sepsis with septic shock (CODE) 7 Perforation of intestine, nontraumatic 7 Peritonitis 11/08/2016 Family History Medical History Relation Name Comments CAD (Coronary Artery Disease) Father CAD (Coronary Artery Disease) Mother Relation Name Status Comments Father Mother Social History Tobacco Use Types Packs/Day Years Used Date Smoking Tobacco: Former Cigarettes Q uit: 10/30/2013 Smokeless Tobacco: Never Tobacco Cessation:Counseling Given: No Alcohol Use Standard Drinks/Week Comments No 0 (1 standard drink = 0.6 oz pur e alcohol) Comments Unknown Sex and Gender Information Value Date Recorded Sex Assigned at Not on file Legal Sex Female 5:11 PM RESPIRATORY SUPPORT TECHNICIAN Gender Identity Not on file Sexual Orientation Not on file Last Filed Vital Signs Vital Sign Reading Time Taken Comments Blood Pressure 118/90 12/04/2021 7:43 PM CDT Pulse 62 12/04/2021 7:43 PM CDT Temperature 36.5 C (97.7 F) 12/04/2021 7:43 PM CDT Respiratory Rate 16 12/04/2021 7:43 PM CDT Oxygen Saturation 97% 12/04/2021 7:43 PM CDT Inhaled Oxygen Concentration - - Weight 78 kg (172 lb) 12/04/2021 7:43 PM CDT Height 162.6 cm (5' 4) 12/04/2021 7:43 PM CDT Body Mass Index 29.52 12/04/2021 7:43 PM CDT Plan of Treatment Health Maintenance Due Date Last Done Comments BONE DENSITY TESTING 1950 COLOGUARD (AGES 45-75) - COLON CA SCREENING 1949 COLON MONITORING 1949 COLONOSCOPY - COLON CA SCREENING 1949 CT COLONOGRAPHY - COLON CA SCREENING 1950 Colorectal Cancer Screening 1949 FIT - COLON CA SCREENING 1949 FLEX SIG - COLON CA SCREENING 1949 LIPID TESTING 1949 MAMMOGRAM 1949 DTAP/TDAP/TD VACCINES (1 - Tdap) 1968 PNEUMOCOCCAL VACCINE 50+ (1 of 2 - PCV) 1968 ZOSTER VACCINE (1 of 2) 1999 SCREENING FOR DIABETES 06/06/2020 8, 06/04/2017, 06/03/2017, Additional history exists COVID-19 VACCINE ( season) 2023 08/13/2021, 01/25/2021, 06/15/2020, Additional history exists DEPRESSION SCREENING 03/31/2024 MEDICARE AWV CALENDAR YEAR 2024 Respiratory Syncytial Virus (RSV) Vaccine Pt: or over 60 yrs (1 - 1-dose 75+ series) 2024 INFLUENZA VACCINE (Season Ended) 2024 12/07/2019 HEPATITIS C SCREENING Completed 06/01/2017 HEPATITIS B VACCINE Aged Out No longe r eligible based on patient's age to complete this topic HIB VACCINE Aged Out No longer eligi ble based on patient's age to complete this topic HPV VACCINE Aged Out No longer eligi ble based on patient's age to complete this topic MENINGOCOCCAL (Group B) VACCINE SHARED DECISION-MAKING Aged Out No longer eligible based on patient's age to complete this topic MENINGOCOCCAL GROUPS A/C/Y/W VACCINE Aged Out No longer eligible based on patient's age to complete this topic Procedures Procedure Name Priority Date/Time Associated Diagnosis Comments BASIC METABOLIC PANEL (CALCIUM TOTAL) Routine 06/06/2017 6:02 AM RESPIRATORY SUPPORT TECHNICIAN HEPATITIS SCREEN ACUTE Routine 06/01/2017 5:45 PM RESPIRATORY SUPPORT TECHNICIAN from Last 3 Months or Most Recently Relevant to Health Maintenance Results * (ABNORMAL) BASIC METABOLIC PANEL (CALCIUM TOTAL) (06/06/2017 6:02 AM RESPIRATORY SUPPORT TECHNICIAN) BUN 13 7 - 26 mg/dL [facility] Creatinine 0.8 0.6 - 1.2 mg/dL [facility] Comment:Confirmed by repeat analysis. Sodium 141 136 - 145 mmol/L [facility] Potassium 3.5 3.5 - 4.5 mmol/L [facility] Chloride 105 98 - 107 mmol/L [facility] CO2 23 22 - 29 mmol/L [facility] Glucose 82 70 - 115 mg/dL [facility] Calcium 8.3(L) 8.4 - 10.2 mg/dL [facility] Anion Gap 17 8 - 18 [facility] BUN/Creatinine Ratio 16 7 - 23 [facility] Osmolality Calculated 291 270 - 300 mOsm/kg [facility] eGFR >60 >60 mL/min/1.7 3 m2 [facility] Blood specimen (specimen) BLOOD SPECIMEN / Unknown 06/06/2017 6:02 AM RESPIRATORY SUPPORT TECHNICIAN 06/06/2017 6:11 AM RESPIRATORY SUPPORT TECHNICIAN us Lizbeth Bell MD LAB - CHEMISTRY ORDERABLES Final Result Performing Organization Address [facility]/[employer] Phone Number [address] [phone] * HEPATITIS SCREEN ACUTE (06/01/2017 5:45 PM RESPIRATORY SUPPORT TECHNICIAN) Hepatitis A Virus Antibody IgM Non-react [facility] Hepatitis B Virus Surface Antigen Non-react [facility] Hepatitis B Core Virus Antibody IgM Non-react [facility] Hepatitis C Antibody Non-react [facility] Comment: Hepatitis C Antibody screen indicates no serologic evidence of past or current infection with Hepatitis C Virus. Patients with unexplained liver disease who are immunocompromised or suspected of having acute Hepatitis C infection may benefit from Nucleic Acid Test (DAVID) for Hepatitis C Viral RNA to confirm Hepatitis C status. Blood specimen (specimen) BLOOD SPECIMEN / Unknown 06/01/2017 5:45 PM RESPIRATORY SUPPORT TECHNICIAN 06/01/2017 5:59 PM RESPIRATORY SUPPORT TECHNICIAN us Wilbur Landrum MD LAB - CHEMISTRY ORDERABLES Fin al Result Performing Organization Address City/State/[place] [address], [facility] [phone] from Last 3 Months or Most Recently Relevant to Health Maintenance Insurance [facility] AETNA MEDICARE ADV SELF PAY NO INSURANCE Member Subscriber Plan / Payer (Ef fective for All Dates) Name:Claudia Elizondo Celina Member ID:Not on file Relation to Subscriber:Not on file Name:MIKHAILCLAUDIA Subscriber ID:Not on file (Home) Address: [address] [place] [id number] Payer ID:Not on file Group ID:Not on file Type:Self Pay Address: [place], [place] Care Teams Management Liaison Relationship Specialty Start Date End Date Nilo Rincon MD [address] [address] PCP - General 11/08/16
--- OUTSIDE RECORDS SUMMARY | 2024-08-31 14:28 | XMS_ITS | Encounter Summary ---
Author Organization [employer] Address [address] [place] [address] Care Team Providers Care Nurse Practitioner Per Diem Name Role Phone Unavailable Primary Care Provider Unavailabl e Encounter Details Date Type Department Care Team (Late st Contact Info) Description 12/20/2016 Lab Requisition [facility] General Laboratory Services [address] [place] [address] [place] [address] Shekhar Johnson MD [address] [place] [address] Anemia Social History Tobacco Use [...]
--- OUTSIDE RECORDS SUMMARY | 2024-08-31 14:28 | XMS_ITS | Encounter Summary ---
Author Organization [employer] Address [address] [place] [address] Care Team Providers Care Security Systems Technician Name Role Phone Unavailable Primary Care Provider Unavailabl e Encounter Details Date Type Department Care Team (Late st Contact Info) Description 06/10/2017 Lab Requisition [facility] Services [address] [place] [address] [place] [address] Shekhar Johnson MD [address] [place] [address] Chronic obstructive pulmonary disease (CMS/HCC); Essential (primary) hypertension Social History Tobacco Use Types Packs/Day Years [...] Associated Diagnosis Comments CBC WITH DIFFERENTIAL Routine 06/10/2017 6:29 AM CDT Essential (primary) hypertension Chronic obstructive pulmonary disease TSH Routine 06/10/2017 6:29 AM CDT Essential (primary) hypertension Chronic obstructive pulmonary disease T4 FREE Routine 06/10/2017 6:29 AM CDT Essential (primary) hypertension Chronic obstructive pulmonary disease HEMOGLOBIN A1C Routine 06/10/2017 6:29 AM CDT Essential (primary) hypertension Chronic obstructive pulmonary disease documented in this encounter Results * T4 FREE (06/10/2017 6:29 AM CDT) T4 FREE 1.12 0.90 - 1.70 ng/dL 06/10/2017 10:30 AM CDT [facility] Blood Venipuncture / Unknown 06/10/2017 6:29 AM CDT 06/10/2017 8:35 AM CDT Shekhar Johnson MD CHEMISTRY ORDERABLES Final R esult [facility] CLIA# [id number] [address] [place] [address] * HEMOGLOBIN A1C (06/10/2017 6:29 AM CDT) HEMOGLOBIN A1C 5.6 4.0 - 6.0 % 06/10/2017 11:15 AM CDT [facility] EST. AVG GLUCOSE, A1C 114 mg/dL 06/10/2017 11:15 AM CDT [facility] Blood Venipuncture / Unknown 06/10/2017 6:29 AM CDT 06/10/2017 8:35 AM CDT Shekhar Johnson MD CHEMISTRY ORDERABLES Final R esult [facility] CLIA# [id number] [address] [place] [address] * TSH (06/10/2017 6:29 AM CDT) TSH 1.08 0.27 - 4.20 uIU/mL 06/10/2017 10:30 AM CDT [facility] Blood Venipuncture / Unknown 06/10/2017 6:29 AM CDT 06/10/2017 8:35 AM CDT Shekhar Johnson MD CHEMISTRY ORDERABLES Final R esult [facility] CLIA# [id number] [address] [place] [address] * (ABNORMAL) CBC WITH DIFFERENTIAL (06/10/2017 6:29 AM CDT) [facility] WBC 4.7 4.0 - 9.8 K/uL 06/10/2017 9:51 AM CDT [facility] RBC 3.26(L) 3.90 - 4.90 M/uL 06/10/2017 9:51 AM CDT [facility] HEMOGLOBIN 8.3(L) 11.8 - 14.8 g/dL 06/10/2017 9:51 AM CDT [facility] HEMATOCRIT 28.4(L) 35.5 - 44.0 % 06/10/2017 9:51 AM CDT [facility] MCV 87.1 82.0 - 99.0 fL 06/10/2017 9:51 AM CDT [facility] MCH 25.5(L) 27.2 - 32.6 pg 06/10/2017 9:51 AM CDT [facility] MCHC 29.2(L) 31.5 - 35.5 g/dL 06/10/2017 9:51 AM CDT [facility] RDW 16.3(H) 11.5 - 14.5 % 06/10/2017 9:51 AM CDT [facility] RDW-STDEV 51.3(H) 37.1 - 48.7 fL 06/10/2017 9:51 AM CDT [facility] PLATELETS 241 140 - 350 K/uL 06/10/2017 9:51 AM CDT [facility] MPV 11.2 9.3 - 12.4 fL 06/10/2017 9:51 AM CDT [facility] NEUTROPHILS 69 % 06/10/2017 9:51 AM CDT [facility] LYMPHOCYTES 17 % 06/10/2017 9:51 AM CDT [facility] MONOCYTES 8 % 06/10/2017 9:51 AM CDT [facility] EOSINOPHILS 5 % 06/10/2017 9:51 AM CDT [facility] BASOPHILS 0 % 06/10/2017 9:51 AM CDT [facility] IMMATURE GRANULOCYTES 1 % 06/10/2017 9:51 AM CDT [facility] Comment:IG (Immature Granulo cyte) count includes Metamyelocytes, Myelocytes, and Promyelocytes NEUTROPHIL ABSOLUTE 3.24 1.90 - 7.00 K/uL 06/10/2017 9:51 AM CDT [facility] LYMPHOCYTE ABSOLUTE 0.77 0.70 - 4.50 K/uL 06/10/2017 9:51 AM CDT [facility] MONOCYTE ABSOLUTE 0.39 0.10 - 1.30 K/uL 06/10/2017 9:51 AM CDT [facility] EOSINOPHIL ABSOLUTE 0.22 0.00 - 0.70 K/uL 06/10/2017 9:51 AM CDT [facility] BASOPHILS ABSOLUTE 0.02 0.00 - 0.20 K/uL 06/10/2017 9:51 AM CDT [facility] IMMATURE GRANULOCYTES ABSOLUTE 0.03 0.00 - 0.03 K/uL 06/10/2017 9:51 AM T [facility] Blood Venipuncture / Unknown 06/10/2017 6:29 AM CDT 06/10/2017 8:35 AM CDT us Shekhar Johnson MD HEMATOLOGY ORDERABLES Final Result [facility] SERVICES - [facility]# [id number] [address] [facility] [place] [address] documented in this encounter Visit Diagnoses Diagnosis Chronic obstructive pulmonary disease (CMS/HCC) Chronic airway obstruction, not elsewhere classified Essential (primary) hypertension Unspecified essential hypertension documented in this encounter
--- OUTSIDE RECORDS SUMMARY | 2024-08-31 14:28 | XMS_ITS | Encounter Summary ---
Author Organization [employer] Address [address] [place] [address] Care Team Providers Care Water System Operator Name Role Phone Unavailable Primary Care Provider Unavailabl e Encounter Details Date Type Department Care Team (Late st Contact Info) Description 06/09/2017 Lab Requisition [facility] Laboratory Services [place] [address] [place] [address] Shekhar Johnson MD [address] [place] [address] Heart failure (CMS/HCC) Social History Tobacco Use Types Packs/Day [...] Procedure Name Priority Date/Time Associated Diagnosis Comments BRAIN NATRIURETIC PEPTIDE, BNP OR PROBNP Routine 06/09/2017 7:00 AM CDT Heart failure BASIC METABOLIC PANEL Routine 06/09/2017 7:00 AM CDT Heart failure documented in this encounter Results * (ABNORMAL) BASIC METABOLIC PANEL (06/09/2017 7:00 AM CDT) SODIUM 143 136 - 145 mmol/L 06/09/2017 11:02 AM [facility] - [facility] POTASSIUM 3.0(L) 3.5 - 5.0 mmol/L 06/09/2017 11:02 AM CDT [employer] LABORATORY SERVICES - . [facility] CHLORIDE 98 98 - 107 mmol/L 06/09/2017 11:02 AM [facility] - [facility] CO2 30(H) 22 - 29 mmol/L 06/09/2017 11:02 AM REPLACED BY [facility] CALCIUM 8.0(L) 8.6 - 10.2 mg/dL 06/09/2017 11:02 AM REPLACED BY [facility] LABORATORY [facility] BUN 6(L) 8 - 23 mg/dL 06/09/2017 11:02 AM [facility] CREATININE 0.89 0.51 - 0.95 mg/dL 06/09/2017 11:02 AM [facility] GLUCOSE 72(L) 74 - 99 mg/dL 06/09/2017 11:02 AM [facility] GFR >60 >=60 mL/min/1.7 3 sq meter 06/09/2017 11:02 AM REPLACED BY [facility] Comment: eGFR has not been validated for [...] GFR, >60 >=60 mL/min/1.7 3 sq meter 06/09/2017 11:02 AM T [facility] ANION GAP 15 8 - 16 mmol/L 06/09/2017 11:02 AM REPLACED BY [facility] Blood Venipuncture / Unknown 06/09/2017 7:00 AM CDT 06/09/2017 9:34 AM CDT us Shekhar Johnson MD CHEMISTRY ORDERABLES Final R esult [id number] [address] [facility] [place] [address] * (ABNORMAL) BRAIN NATRIURETIC PEPTIDE, BNP OR PROBNP (06/09/2017 7:00 AM CDT) PROBNP, N TERMINAL 1,295(H) <124 pg/mL 06/09/2017 11:02 AM CDT [facility] Comment: Reference values for screening purposes based on church administrator's recommendation: Patients less than 75 years: <125 pg/mL Patients 75 years and older: <450 pg/mL Reference values for determination of acute congestive heart failure in dyspneic patients based on PRIDE study (Am J Cardiol 2005;95:948): Patients less than 50 years: <450 pg/mL (Negative predictive value= 99%) Patients 50 years and older: <900 pg/mL (Negative predictive value= 92%) Rule out cutpoint, all ages: <300 pg/mL (Negative predictive value= 99%) Blood Venipuncture / Unknown 06/09/2017 7:00 AM CDT 06/09/2017 9:34 AM CDT us Shekhar Johnson MD CHEMISTRY ORDERABLES Final R esult [facility] CLIA# [id number] [address] [place] [address] documented in this encounter Visit Diagnoses Diagnosis Heart failure (CMS/HCC) Heart failure, unspecified documented in this encounter
--- OUTSIDE RECORDS SUMMARY | 2024-08-31 14:28 | XMS_ITS | Encounter Summary ---
Author Organization [employer] Address [address] [place] [address] Care Team Providers Care Interventional Radiology Rn Name Role Phone Unavailable Primary Care Provider Unavailabl e Encounter Details Date Type Department Care Team (Late st Contact Info) Description 11/30/2016 Lab Requisition [facility] Laboratory Services [facility] [place] [address] [place] [address] Shekhar Johnson MD [address] [place] [address] Essential (primary) hypertension Social History Tobacco Use [...] Date/Time Associated Diagnosis Comments CBC WITH DIFFERENTIAL Stat 11/30/2016 1:29 PM CDT Essential (primary) hypertension documented in this encounter Results * (ABNORMAL) CBC WITH DIFFERENTIAL (11/30/2016 1:29 PM CDT) Pathologist [facility] WBC 5.0 4.0 - 9.8 K/uL 11/30/2016 2:53 PM CDT [facility] LAB[facility]ATORY SERVICES [facility] RBC 3.00(L) 3.90 - 4.90 M/uL 11/30/2016 2:53 PM CDT [facility]ORY SERVICES [facility] HEMOGLOBIN 8.3(L) 11.8 - 14.8 g/dL 11/30/2016 2:53 PM CDT [facility]ORATORY SERVICES [facility] HEMATOCRIT 27.6(L) 35.5 - 44.0 % 11/30/2016 2:53 PM CDT [facility] MCV 92.0 82.0 - 99.0 fL 11/30/2016 2:53 PM CDT [facility] MCH 27.7 27.2 - 32.6 pg 11/30/2016 2:53 PM CDT [facility] MCHC 30.1(L) 31.5 - 35.5 g/dL 11/30/2016 2:53 PM CDT [facility] RDW 14.9(H) 11.5 - 14.5 % 11/30/2016 2:53 PM CDT [facility] RDW-STDEV 49.8(H) 37.1 - 48.7 fL 11/30/2016 2:53 PM CDT [facility] PLATELETS 201 140 - 350 K/uL 11/30/2016 2:53 PM CDT [facility] MPV 11.4 9.3 - 12.4 fL 11/30/2016 2:53 PM CDT [facility] NEUTROPHILS 77 % 11/30/2016 2:53 PM CDT [facility] LYMPHOCYTES 13 % 11/30/2016 2:53 PM CDT [facility] MONOCYTES 6 % 11/30/2016 2:53 PM CDT [facility] EOSINOPHILS 3 % 11/30/2016 2:53 PM CDT [facility] BASOPHILS 1 % 11/30/2016 2:53 PM CDT [facility] - . [facility] IMMATURE GRANULOCYTES 0 % 11/30/2016 2:53 PM CDT [facility] - . [facility] NEUTROPHIL ABSOLUTE 3.85 1.90 - 7.00 K/uL 11/30/2016 2:53 PM CDT [facility] - . [facility] LYMPHOCYTE ABSOLUTE 0.65(L) 0.70 - 4.50 K/uL 11/30/2016 2:53 PM CDT [facility] - . [facility] MONOCYTE ABSOLUTE 0.29 0.10 - 1.30 K/uL 11/30/2016 2:53 PM CDT [facility] - . [facility] EOSINOPHIL ABSOLUTE 0.17 0.00 - 0.70 K/uL 11/30/2016 2:53 PM CDT [facility] BASOPHILS ABSOLUTE 0.03 0.00 - 0.20 K/uL 11/30/2016 2:53 PM CDT [facility]ORY SERVICES - [facility] IMMATURE GRANULOCYTES ABSOLUTE 0.02 0.00 - 0.03 K/uL 11/30/2016 2:53 PM CDT [facility] - [facility] Blood Venipuncture / Unknown 11/30/2016 1:29 PM CDT 11/30/2016 2:39 PM CDT us Shekhar Johnson MD HEMATOLOGY ORDERABLES Final Result [facility] - [facility]# [id number] [address] [place] [address] documented in this encounter Visit Diagnoses Diagnosis Essential (primary) hypertension Unspecified essential hypertension documented in this encounter
--- OUTSIDE RECORDS SUMMARY | 2024-08-31 14:28 | XMS_ITS | Encounter Summary ---
Author Organization [employer] Address [address] [place] [address] Care Team Providers Care Manager Pricing Name Role Phone Unavailable Primary Care Provider Unavailabl e Encounter Details Date Type Department Care Team (Late st Contact Info) Description 06/23/2017 Lab Requisition [facility] Laboratory [facility] [place] [address] [place] [address] Shekhar Johnson MD [address] [place] [address] Heart disease Social History Tobacco Use Types Packs/Day Years Used Date Smoking Tobacco: Never Assessed Comments Unknown Sex and Gender Information Value Date Recorded Sex Assigned at Not on file Legal Sex Female 1:29 PM CDT Gender Identity Not on file Sexual Orientation Not on file documented as of this encounter Plan of Treatment Not on file documented as of this encounter Visit Diagnoses Diagnosis Heart disease Heart disease, unspecified documented in this encounter
--- OUTSIDE RECORDS SUMMARY | 2024-08-31 14:28 | XMS_ITS | Encounter Summary ---
Author Organization [employer] Address [address] [place] [address] Care Team Providers Care Puppet Maker Name Role Phone Unavailable Primary Care Provider Unavailabl e Encounter Details Date Type Department Care Team (Late st Contact Info) Description 12/03/2016 Lab Requisition [facility] Laboratory Services [place] [address] [address] Shekhar Johnson MD [address] [place] [address] Essential (primary) hypertension Social History [...] Associated Diagnosis Comments CBC WITH DIFFERENTIAL Routine 12/03/2016 8:40 AM CDT Essential (primary) hypertension TSH Routine 12/03/2016 8:40 AM CDT Essential (primary) hypertension T4 FREE Routine 12/03/2016 8:40 AM CDT Essential (primary) hypertension HEMOGLOBIN A1C Routine 12/03/2016 8:40 AM CDT Essential (primary) hypertension LIPID PANEL Routine 12/03/2016 8:40 AM CDT Essential (primary) hypertension COMPREHENSIVE METABOLIC PANEL Routine 12/03/2016 8:40 AM CDT Essential (primary) hypertension documented in this encounter Results * (ABNORMAL) LIPID PANEL (12/03/2016 8:40 AM CDT) CHOLESTEROL 162 <200 mg/dL 12/03/2016 5:22 PM T [facility] TRIGLYCERIDE 274(H) <150 mg/dL 12/03/2016 5:22 PM CDT [facility] HDL 40 40 - 59 mg/dL 12/03/2016 5:22 PM T [facility] LDL CALCULATED 67 <100 mg/dL 12/03/2016 5:22 PM T [facility] NON-HDL CHOLESTEROL 122 <130 mg/dL 12/03/2016 5:22 PM T [facility] Blood Venipuncture / Unknown 12/03/2016 8:40 AM CDT 12/03/2016 3:15 PM CDT [facility] - 12/03/2016 5:22 PM CDT TOTAL CHOLESTEROL mg/dL Desirable <200 Borderline high 200-239 High >=240 TRIGLYCERIDES mg/dL Normal <150 Borderline high 150-199 High 200-499 Very high >=500 HDL CHOLESTEROL mg/dL Low <40 Normal 40-59 Desirable >=60 NON HDL CHOLESTEROL mg/dL Optimal <130 Near Optimal 130-159 Borderline High 160-189 Very High >=190 Calculated LDL mg/dL Optimal <100 Near Optimal 100-129 Borderline High 130-159 High 160-189 Very High >=190 ATPIII Guidelines Reference Ranges for Lipid Panels (NCEP/AMA) Shekhar Johnson MD CHEMISTRY ORDERABLES Final R esult [facility]# [id number] [address] [place] [place] [address] * T4 FREE (12/03/2016 8:40 AM CDT) T4 FREE 1.36 0.90 - 1.70 ng/dL 12/03/2016 7:04 PM CDT [facility] Blood Venipuncture / Unknown 12/03/2016 8:40 AM CDT 12/03/2016 3:15 PM CDT Shekhar Johnson MD CHEMISTRY ORDERABLES Final R esult [facility] CLIA# [id number] [address] [place] [address] * TSH (12/03/2016 8:40 AM CDT) Pathologist [facility] TSH 1.07 0.27 - 4.20 uIU/mL 12/03/2016 7:04 PM CDT [facility] LABORATORY [facility] Blood Venipuncture / Unknown 12/03/2016 8:40 AM CDT 12/03/2016 3:15 PM CDT Shekhar Johnson MD CHEMISTRY ORDERABLES Final R esult Performing Organization Address City/[facility]/ZIP Co de Phone Number [facility]# [id number] [address] [place] [address] * HEMOGLOBIN A1C (12/03/2016 8:40 AM CDT) [facility] HEMOGLOBIN A1C 5.7 4.0 - 6.0 % 12/03/2016 4:27 PM CDT [facility] AppointmentCity [facility] Comment:Note: Effective as o f 04/21/2015 a new methodology, Turbidimetric inhibition immunoassay (TINIA),has been implemented. EST. AVG GLUCOSE, A1C 117 mg/dL 12/03/2016 4:27 PM CDT [facility] Blood Venipuncture / Unknown 12/03/2016 8:40 AM CDT 12/03/2016 3:34 PM CDT Shekhar Johnson MD CHEMISTRY ORDERABLES Final R esult [facility] CLIA# [id number] [address] [place] [address] * (ABNORMAL) COMPREHENSIVE METABOLIC PANEL (12/03/2016 8:40 AM CDT) SODIUM 150(H) 136 - 145 mmol/L 12/03/2016 5:39 PM CDT [facility] POTASSIUM 4.2 3.5 - 5.0 mmol/L 12/03/2016 5:39 PM CDT [facility] CHLORIDE 102 98 - 107 mmol/L 12/03/2016 5:39 PM CDT [facility] CO2 25 22 - 29 mmol/L 12/03/2016 5:39 PM CDT [facility] CALCIUM 9.3 8.6 - 10.2 mg/dL 12/03/2016 5:39 PM CDT [facility] BUN 15 8 - 23 mg/dL 12/03/2016 5:39 PM CDT [facility] CREATININE 1.21(H) 0.51 - 0.95 mg/dL 12/03/2016 5:39 PM CDT [facility] GLUCOSE 105(H) 74 - 99 mg/dL 12/03/2016 5:39 PM CDT [facility] TOTAL PROTEIN 7.9 6.7 - 8.6 g/dL 12/03/2016 5:39 PM CDT [facility] ALBUMIN 3.5 3.5 - 5.2 g/dL 12/03/2016 5:39 PM CDT [facility] BILIRUBIN TOTAL 0.3 0.2 - 1.1 mg/dL 12/03/2016 5:39 PM CDT [facility] ALKALINE PHOSPHATASE 74 35 - 104 U/L 12/03/2016 5:39 PM CDT [facility] AST 25 <33 U/L 12/03/2016 5:39 PM CDT [facility] ALT 10 <34 U/L 12/03/2016 5:39 PM CDT [facility] GFR 44(L) >=60 mL/min/1.7 3 sq meter 12/03/2016 5:39 PM CDT [facility] Comment: eGFR [...] please refer to the GFR result. GFR, 54(L) >=60 mL/min/1.7 3 sq meter 12/03/2016 5:39 PM T [facility] LABORATORY [facility] ANION GAP 23(H) 8 - 16 mmol/L 12/03/2016 5:39 PM [facility] App[facility]City [facility] Blood Venipuncture / Unknown 12/03/2016 8:40 AM CDT 12/03/2016 3:15 PM CDT Narrative [facility] LABOR[facility]ORY [facility] - 12/03/2016 5:39 PM CDT Samples containing indocyanine green cause interferences on Total and/or Direct Bilirubin and must not be measured. us Shekhar Johnson MD CHEMISTRY ORDERABLES Final R esult [facility]# [id number] 5 [facility] [place] [address] * (ABNORMAL) CBC WITH DIFFERENTIAL (12/03/2016 8:40 AM CDT) [facility] WBC 4.9 4.0 - 9.8 K/uL 12/03/2016 3:02 PM [facility] RBC 3.15(L) 3.90 - 4.90 M/uL 12/03/2016 3:02 PM [facility] LAB[facility] HEMOGLOBIN 8.7(L) 11.8 - 14.8 g/dL 12/03/2016 3:02 PM [facility] LAB[facility]ORY [facility] HEMATOCRIT 30.0(L) 35.5 - 44.0 % 12/03/2016 3:02 PM CDT [facility] - [facility] MCV 95.2 82.0 - 99.0 fL 12/03/2016 3:02 PM CDT [facility] - [facility] MCH 27.6 27.2 - 32.6 pg 12/03/2016 3:02 PM CDT [facility] - [facility] MCHC 29.0(L) 31.5 - 35.5 g/dL 12/03/2016 3:02 PM CDT [facility] - [facility] RDW 15.8(H) 11.5 - 14.5 % 12/03/2016 3:02 PM CDT [facility] - [facility] RDW-STDEV 54.2(H) 37.1 - 48.7 fL 12/03/2016 3:02 PM CDT [facility] - [facility] PLATELETS 216 140 - 350 K/uL 12/03/2016 3:02 PM CDT [facility] - [facility] MPV 11.7 9.3 - 12.4 fL 12/03/2016 3:02 PM CDT [facility] - . [facility] NEUTROPHILS 72 % 12/03/2016 3:02 PM CDT [facility] - . [facility] LYMPHOCYTES 17 % 12/03/2016 3:02 PM CDT [facility] - [facility] MONOCYTES 7 % 12/03/2016 3:02 PM CDT [facility] - . [facility] EOSINOPHILS 4 % 12/03/2016 3:02 PM CDT [facility] - . [facility] BASOPHILS 0 % 12/03/2016 3:02 PM CDT [facility] - . [facility] IMMATURE GRANULOCYTES 0 % 12/03/2016 3:02 PM CDT [facility] SERVICES - . [facility] NEUTROPHIL ABSOLUTE 3.51 1.90 - 7.00 K/uL 12/03/2016 3:02 PM CDT [facility] - . [facility] LYMPHOCYTE ABSOLUTE 0.84 0.70 - 4.50 K/uL 12/03/2016 3:02 PM CDT [facility] - . [facility] MONOCYTE ABSOLUTE 0.33 0.10 - 1.30 K/uL 12/03/2016 3:02 PM CDT [facility] - . [facility] EOSINOPHIL ABSOLUTE 0.17 0.00 - 0.70 K/uL 12/03/2016 3:02 PM CDT [facility] LABORATORY SERVICES - [facility] BASOPHILS ABSOLUTE 0.02 0.00 - 0.20 K/uL 12/03/2016 3:02 PM CDT [facility] LABORATORY SERVICES - [facility] IMMATURE GRANULOCYTES ABSOLUTE 0.02 0.00 - 0.03 K/uL 12/03/2016 3:02 PM CDT [facility] LAB[facility]ATORY SERVICES - [facility] Blood Venipuncture / Unknown 12/03/2016 8:40 AM CDT 12/03/2016 3:00 PM CDT us Shekhar Johnson MD HEMATOLOGY ORDERABLES Final Result [facility] LABORATORY SERVICES [facility]# [id number] [address] [place] [address] documented in this encounter Visit Diagnoses Diagnosis Essential (primary) hypertension Unspecified essential hypertension documented in this encounter
== END 2024-08-31 14:18 | disposition home or self-care (01) ==
PROVIDERS: PCP Family Medicine Adolescent Medicine; Visit Provider Family Medicine Adolescent Medicine
DX: R79.89 Other specified abnormal findings of blood chemistry (principal); D64.9 Anemia, unspecified; I73.9 Peripheral vascular disease, unspecified
CPT/HCPCS: 74176

== ENCOUNTER 2024-09-15 15:02 | Outpatient (CLI) | payer MEDICARE, SELFPAY ==
[2024-09-15 15:47] LABS: Alanine Aminotransferase 42 U/L (6-35); Albumin Level 3.7 g/dL (3.5-5.1); Alkaline Phosphatase 347 U/L (38-126); Aspartate Amino Transferase 40 U/L (14-36); Bilirubin,Total 0.3 mg/dL (0.2-1.3); Total Protein 7.4 g/dL (6.3-8.2)
[2024-09-15 15:49] LABS: INR 1.1
--- OUTSIDE RECORDS SUMMARY | 2024-09-15 16:58 | XMS_ITS ---
Author Name Auto Generated, Auto Generated Organization [employer] [facility] ices Address [address] [place] [address] Phone [phone] Care Team Providers Care Overnight Caregiver Name Role Phone Waldodenisha Shekhar Morley Unavailable Nilo Rincon Unavailable [phone] Functional Status No Results Mental Status No [...] Xanax 0.5 mg tablet 0.5mg TABLET Oral OK N 3 Times Daily Anxiety FriJun 09 15:00:00 EDT 2017Jun 09 16:49:00 EDT 2017 Xanax 0.5 mg tablet 0.5mg TABLET Oral OK N 3 Times Daily Anxiety FriJun 09 [...] Xanax 0.5 mg tablet 0.5mg TABLET Oral OK N 3 Times Daily Anxiety FriJun 13 [...] Daily Nina Sep 14 20:00:00 EDT 2016 [facility] Sep 18 01:00:00 EDT 2016 metoprolol tartrate 75 mg tablet 1 tablet TABLET Oral 2 Times Daily Wed Sep 13 18:00:00 EDT 2016 [facility] Sep 18 01:00:00 EDT 2016 metFORMIN 500 mg tablet 2 tabs TABLET Or al 1 Time Daily for 7 Days [facility] Sep 07:00:00 EDT 2016 Nina Sep 14 15:42:00 EDT 2016 metFORMIN 500 mg tablet 3 tabs TABLET Or al 1 Time Daily for 7 Days [facility] 07:00:00 EDT 2016 Nina Sep 14 15:42:00 EDT 2016 metFORMIN 500 mg tablet 4 tabs TABLET Or al 1 Time Daily [facility] Dec 31 07:00:00 EDT 2016 Nina Sep 14 15:42:00 EDT 2016 metFORMIN ER 500 mg tablet,extended release 24hr 500mg TABLET, EXTENDED RELEASE 24 HR Oral 1 Time Daily for 7 Days [facility] Sep 07:00:00 EDT 2016 Nina Sep 14 17:36:00 EDT 2016 metFORMIN ER 1,000 mg tablet,extended release 24hr 1,000mg TABLET, EXTENDED RELEASE 24 HR Oral 1 Time Daily for 7 Days [facility] Sep 19 07:00:00 EDT 2016 [facility] Sep 12 14:34:00 EDT 2016 metFORMIN ER 1,000 mg tablet,extended release 24hr 1,500mg TABLET, EXTENDED RELEASE 24 HR Oral 1 Time Daily for 7 Days [facility] Sep 07:00:00 EDT 2016Dec 10 14:35:00 EDT [...] oxyCODONE 5 mg tablet 5mg TABLET Oral OK N Every 6 Hours Pain FriDec 02 [...] Hours Anxiety Fri Sep 19:00:00 EDT 2016 [facility] Sep 02 14:48:00 EDT 2016 melatonin [...] 2016 * End Date: * Text: * group home (current) use of anticoagulants* Code: * Start [...] 2016 * End Date: * Text: * group home (current) use of oral hypoglycemic drugs* Code: [...] * Text: * Atherosclerotic heart disease of enterprise coronary artery without angina pectoris* Code: * [...] 2017 * End Date: * Text: * 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
--- OUTSIDE RECORDS SUMMARY | 2024-09-15 16:58 | XMS_ITS | Clinical Summary ---
Author Organization [facility] Address [address] [place] [address] Care Team Providers Care Reflector Driller And Deburrer Name Role Phone Nilo Rincon MD Primary Care Provider + Source Comments [facility],non-owned Affiliates and Associated Physician Practices is amultiple site organization consisting of ambulatory clinics and hospital sitesin [place], [place], [place] and [place]. This disclosure is being madepursuant to the Care Everywhere program and may not contain all information available regarding this patient. Last updated 17.[facility] Allergies Active Allergy Reactions Criticality Noted Date [...] (Wheezing, Shortness of Breath). 7 Active Tiotropium [place]-Olodate rol (STIOLTO RESPIMAT) 2.5-2.5 MCG/ACT Inhale 2 [...] on file Legal Sex Female 5:11 PM KNIFE SETTER Gender Identity Not on file Sexual Orientation [...] PANEL (CALCIUM TOTAL) Routine 06/06/2017 6:02 AM KNIFE SETTER HEPATITIS SCREEN ACUTE Routine 06/01/2017 5:45 PM KNIFE SETTER from Last 3 Months or Most Recently Relevant to Health Maintenance Results * (ABNORMAL) BASIC METABOLIC PANEL (CALCIUM TOTAL) (06/06/2017 6:02 AM KNIFE SETTER) BUN 13 7 - 26 mg/dL [facility] Creatinine 0.8 0.6 - 1.2 [...] HOSPITAL Anion Gap 17 8 - 18 [facility] BUN/Creatinine Ratio 16 7 - 23 [facility] Osmolality Calculated 291 270 - 300 mOsm/kg [facility] eGFR >60 >60 mL/min/1.7 3 m2 [facility] Blood specimen (specimen) BLOOD SPECIMEN / Unknown 06/06/2017 6:02 AM KNIFE SETTER 06/06/2017 6:11 AM KNIFE SETTER us Lizbeth Bell MD LAB - CHEMISTRY ORDERABLES Final Result Performing Organization Address [facility] Co de Phone Number [address] [phone] * HEPATITIS SCREEN ACUTE (06/01/2017 5:45 PM KNIFE SETTER) Hepatitis A Virus Antibody IgM Non-react [facility] Hepatitis B Virus Surface Antigen Non-react [facility] Hepatitis B Core Virus Antibody IgM Non-react [facility] Hepatitis C Antibody Non-react [facility] Comment: Hepatitis C Antibody screen indicates no serologic evidence of past or current infection with Hepatitis C Virus. Patients with unexplained liver disease who are immunocompromised or suspected of having acute Hepatitis C infection may benefit from Nucleic Acid Test (DAVID) for Hepatitis C Viral RNA to confirm Hepatitis C status. Blood specimen (specimen) BLOOD SPECIMEN / Unknown 06/01/2017 5:45 PM KNIFE SETTER 06/01/2017 5:59 PM KNIFE SETTER us Wilbur Landrum MD LAB - CHEMISTRY ORDERABLES Fin al Result Performing Organization Address City/State/[facility] [place] [address], [facility] [phone] from Last 3 Months or Most Recently Relevant to [place] [address] [facility] AETNA MEDICARE ADV SELF PAY NO INSURANCE Member Subscriber Plan / Payer (Ef fective for All Dates) Name:Claudia Elizondo Celina Member ID:Not on file Relation to Subscriber:Not on file Name:MIKHAILCLAUDIA Subscriber ID:Not on file (Home) Address: [address] [place] [id number] Payer ID:Not on file Group ID:Not on file Type:Self Pay Address: [place], [place] Care Teams Reflector Driller And Deburrer Relationship Specialty Start Date End Date Nilo Rincon MD [address] [address] PCP - General 11/08/16
--- OUTSIDE RECORDS SUMMARY | 2024-09-15 16:58 | XMS_ITS ---
Author Name Auto Generated, Auto Generated Organization [facility] ices Address [address] [place] [address] Phone [phone] Care Team Providers Care Child Guidance Counselor Name Role Phone Waldodenisha Shekhar Morley Unavailable Nilo Rincon Unavailable [phone] Functional Status No Results Mental Status No [...] Xanax 0.5 mg tablet 0.5mg TABLET Oral CA N 3 Times Daily Anxiety FriJun 09 15:00:00 EDT 2017Jun 09 16:49:00 EDT 2017 Xanax 0.5 mg tablet 0.5mg TABLET Oral CA N 3 Times Daily Anxiety FriJun 09 [...] Xanax 0.5 mg tablet 0.5mg TABLET Oral CA N 3 Times Daily Anxiety FriJun 13 [...] Daily Nina Sep 14 20:00:00 EDT 2016 [facility] Sep 18 01:00:00 EDT 2016 metoprolol tartrate 75 mg tablet 1 tablet TABLET Oral 2 Times Daily Wed Sep 13 18:00:00 EDT 2016 [facility] Sep 18 01:00:00 EDT 2016 metFORMIN 500 mg tablet 2 tabs TABLET Or al 1 Time Daily for 7 Days [facility] Sep 07:00:00 EDT 2016 Nina Sep 14 15:42:00 EDT 2016 metFORMIN 500 mg tablet 3 tabs TABLET Or al 1 Time Daily for 7 Days [facility] 07:00:00 EDT 2016 Nina Sep 14 15:42:00 EDT 2016 metFORMIN 500 mg tablet 4 tabs TABLET Or al 1 Time Daily [facility] Dec 31 07:00:00 EDT 2016 Nina Sep 14 15:42:00 EDT 2016 metFORMIN ER 500 mg tablet,extended release 24hr 500mg TABLET, EXTENDED RELEASE 24 HR Oral 1 Time Daily for 7 Days [facility] Sep 07:00:00 EDT 2016 Nina Sep 14 17:36:00 EDT 2016 metFORMIN ER 1,000 mg tablet,extended release 24hr 1,000mg TABLET, EXTENDED RELEASE 24 HR Oral 1 Time Daily for 7 Days [facility] Sep 19 07:00:00 EDT 2016 [facility] Sep 12 14:34:00 EDT 2016 metFORMIN ER 1,000 mg tablet,extended release 24hr 1,500mg TABLET, EXTENDED RELEASE 24 HR Oral 1 Time Daily for 7 Days [facility] Sep 07:00:00 EDT 2016Dec 10 14:35:00 EDT [...] oxyCODONE 5 mg tablet 5mg TABLET Oral CA N Every 6 Hours Pain FriDec 02 [...] Anxiety Fri Sep 19:00:00 EDT 2016 [facility] Sep 02 14:48:00 EDT 2016 melatonin [...] 2016 * End Date: * Text: * FDC (current) use of anticoagulants* Code: * Start [...] 2016 * End Date: * Text: * FDC (current) use of oral hypoglycemic drugs* Code: [...] * Text: * Atherosclerotic heart disease of [place] coronary artery without angina pectoris* Code: * [...] 2017 * End Date: * Text: * roasterman (current) use of 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
--- OUTSIDE RECORDS SUMMARY | 2024-09-15 16:58 | XMS_ITS | Continuity of Care Document ---
Author Organization [facility] Address [address] [place] [address] [address] [place] [address] Phone Care Team Providers Care Maintenance Mechanic Supervisor Name Role Phone January CASTRO, Lukasz Unavailable Unavaila ble Procedures Procedure Date CATARACT SURG W/IOL, 1 STAGE CATARACT SURG W/IOL, 1 STAGE OFFICE/OUTPATIENT VISIT, [facility] OPHTHALMIC BIOMETRY OPHTHALMIC BIOMETRY Advance Directives Directive Yes / No Effective Date File Name No Information Encounters Encounter Description Practice Location Reason(s) For Visit Diagnoses Date Provider Providers Copied on Encounter [facility], [address], [place], [place], [id number], tel:[phone] [facility] No Information 7 January Lal. [address], [place], [place], [address], [place]. tel:[phone] Referring Provider: Lukasz galeana, [address], [place], [address] . tel:[phone] [facility], [address] [place], [place] [address] [address], [place], [place], [address], tel:[phone] [facility] No Information 7 January Lal. [address], [place], [place], [address], [place]. tel:[phone] Referring Provider: Lukasz galeana, [address], [place], [address] . tel:[phone] OFFICE/OUTPA TIENT VISIT, NEW [facility], [address], [place], [place], [address], tel:[phone] [facility] No Information 7 January Lal. [address], [place], [place], [address], . tel:[phone] Referring Provider: Luksaz galeana, [address], [place], [address] . tel:[phone] Family History Family Member Type Diagnosis Age At Onset No Information Payers Payer name Insurance type Covered republican ID Authoriza tion(s) [employer] OF [facility] CI [id number] Social History Type Description Quantity Date Captured [...]
== END 2024-09-15 15:03 | disposition home or self-care (01) ==
PROVIDERS: PCP Family Medicine Adolescent Medicine; Visit Provider Nurse Practitioner
DX: R79.89 Other specified abnormal findings of blood chemistry (principal); K83.1 Obstruction of bile duct
CPT/HCPCS: 36415; 80076; 85610

== ENCOUNTER 2024-09-28 10:15 | Outpatient (CLI) | payer MEDICARE, SELFPAY ==
--- NOTE | 2024-09-28 10:30 | ECG_ITS ---
Test Date: 2024-09-28 10:56:56 Measurements Intervals [place] Rate: 74 P: 57 PA: 152 QRS: 31 QRSD: 106 T: 40 QT: 390 QTc: 435 Interpretive Statements SINUS RHYTHM No previous ECG available for comparison Electronically Signed On 09-28-2024 18:05:51 CDT by Teressa Collado
--- OUTSIDE RECORDS SUMMARY | 2024-09-28 10:39 | XMS_ITS | Clinical Summary ---
Author Organization [facility] Address [address] [place] [address] Care Team Providers Care Manager Special Events Name Role Phone Unavailable Primary Care Provider Unavailabl e Social History Tobacco Use Types Packs/Day Years Used Date Smoking Tobacco: Smoker, Current Status Unknown Comments Unknown Sex and Gender Information Value Date Recorded Sex Assigned at Not on file Legal Sex Female 11:49 PM CDT Gender Identity Not on file Sexual Orientation Not on file Last Filed Vital Signs Vital Sign Reading Time Taken Comments Blood Pressure 146/90 07/18/2011 9:25 AM CDT Pulse 58 07/18/2011 9:25 AM CDT Temperature - - Respiratory Rate 16 07/18/2011 9:25 AM CDT Oxygen Saturation - - Inhaled Oxygen Concentration - - Weight 89.8 kg (198 lb) 07/18/2011 9:25 AM CDT Height - - Body Mass Index - - Plan of Treatment Health Maintenance Due Date Last Done Comments Colorectal Cancer Screening Colonoscopy (10 Years) 1950 Hepatitis C 1967 DTaP, Tdap and Td Vaccines ( 1 - Tdap) 1968 Pneumococcal Vaccine: 50+ Ye ars (1 of 1 - PCV) 1999 Zoster Vaccines (1 of 2) 1999 Dexa Scan (General) 2014 COVID-19 Vaccine ( - 2023-2 5 season) 2023 RSV Immunization or 60+ Years (1 - 1-dose 75+ series) 2024 Meningococcal B Vaccine Aged Out No l onger eligible based on patient's age to complete this topic Meningococcal Vaccine Aged Out No gaby brionna eligible based on patient's age to complete this topic RSV Immunizations Under 20 Months Aged Out No longer eligible based on patient's age to complete this topic
--- OUTSIDE RECORDS SUMMARY | 2024-09-28 10:39 | XMS_ITS | Encounter Summary ---
Author Organization [facility] Address [address] [place] [address] Care Team Providers Care Mantel Craftsman Name Role Phone Unavailable Primary Care Provider Unavailabl e Encounter Details Date Type Department Care Team (Late st Contact Info) Description 11/30/2016 Lab Requisition [facility] [employer] [address] [place] [address] Shekhar Johnson MD [address] [place] [address] Essential (primary) hypertension Social History [...] WITH DIFFERENTIAL (11/30/2016 1:29 PM CDT) Pathologist [facility] WBC 5.0 4.0 - 9.8 K/uL 11/30/2016 2:53 PM CDT [facility] RBC 3.00(L) 3.90 - 4.90 M/uL 11/30/2016 2:53 PM CDT [facility] HEMOGLOBIN 8.3(L) 11.8 - 14.8 g/dL 11/30/2016 2:53 PM CDT [facility] HEMATOCRIT 27.6(L) 35.5 - 44.0 % 11/30/2016 2:53 PM CDT [facility] MCV 92.0 82.0 - 99.0 fL 11/30/2016 2:53 PM CDT [facility] MCH 27.7 27.2 - 32.6 pg 11/30/2016 2:53 PM CDT [facility] MCHC 30.1(L) 31.5 - 35.5 g/dL 11/30/2016 2:53 PM CDT [facility] RDW 14.9(H) 11.5 - 14.5 % 11/30/2016 2:53 PM CDT [facility] RDW-STDEV 49.8(H) 37.1 - 48.7 fL 11/30/2016 2:53 PM CDT [facility] PLATELETS 201 140 - 350 K/uL 11/30/2016 2:53 PM CDT [facility] MPV 11.4 9.3 - 12.4 fL 11/30/2016 [...] PM CDT [facility] IMMATURE GRANULOCYTES 0 % 11/30/2016 2:53 PM CDT [facility] NEUTROPHIL ABSOLUTE 3.85 1.90 - 7.00 K/uL 11/30/2016 2:53 PM CDT [facility] LYMPHOCYTE ABSOLUTE 0.65(L) 0.70 - 4.50 K/uL 11/30/2016 2:53 PM CDT [facility] MONOCYTE ABSOLUTE 0.29 0.10 - 1.30 K/uL 11/30/2016 2:53 PM CDT [facility] EOSINOPHIL ABSOLUTE 0.17 0.00 - 0.70 K/uL 11/30/2016 2:53 PM CDT [facility] BASOPHILS ABSOLUTE 0.03 0.00 - 0.20 K/uL 11/30/2016 2:53 PM CDT [facility] - [facility] IMMATURE GRANULOCYTES ABSOLUTE 0.02 0.00 - 0.03 K/uL 11/30/2016 2:53 PM CDT [facility] - [facility] Blood Venipuncture / Unknown 11/30/2016 1:29 PM CDT 11/30/2016 2:39 PM CDT us Shekhar Johnson MD HEMATOLOGY ORDERABLES Final Result [facility] - [facility]# [id number] [address] [place] [address] documented in this encounter Visit Diagnoses Diagnosis Essential (primary) hypertension Unspecified essential hypertension documented in this encounter
--- OUTSIDE RECORDS SUMMARY | 2024-09-28 10:39 | XMS_ITS | Continuity of Care Document ---
Author Organization [facility] Address [address] [place] [address] [address] [place] [address] Phone Care Team Providers Care Home Security Alarm Installer Name Role Phone January CASTRO, Lukasz Unavailable Unavaila ble Procedures Procedure Date CATARACT SURG W/IOL, 1 STAGE CATARACT SURG W/IOL, 1 STAGE OFFICE/OUTPATIENT VISIT, [facility] OPHTHALMIC BIOMETRY OPHTHALMIC BIOMETRY Advance Directives Directive Yes / No Effective Date File Name No Information Encounters Encounter Description Practice Location Reason(s) For Visit Diagnoses Date Provider Providers Copied on Encounter [facility], [address], [place], [place], [address], tel:[phone] [facility] No Information 7 January Lal. [address], [place], [place], [address], [place]. tel:[phone] Referring Provider: Lukasz galeana, [address], [place], [address] . tel:[phone] [facility], [address] [place], [place] [address], [place], [place], [address], tel:[phone] [facility] No Information 7 January Lal. [address], [place], [place], [address], [place]. tel:[phone] Referring Provider: Lukasz galeana, [address], [place], [address] . tel:[phone] OFFICE/OUTPA TIENT VISIT, NEW [facility], [address], [place], [place], [address], tel:[phone] [facility] No Information 7 January Lal. [address], [place], [place], [address], . tel:[phone] Referring Provider: Lukasz galeana, [address], [place], [address] . tel:[phone] Family History Family Member Type Diagnosis Age At Onset No Information Payers Payer name Insurance type Covered constitution party ID Authoriza tion(s) [employer] [facility] CI [id number] Social History Type Description Quantity Date Captured [...]
--- OUTSIDE RECORDS SUMMARY | 2024-09-28 10:39 | XMS_ITS ---
Author Name Auto Generated, Auto Generated Organization [facility] ices Address [address] [place] [address] Phone [phone] Care Team Providers Care Deputy County Counsel Name Role Phone Waldodenisha Shekhar Morley Unavailable Nilo Rincon Unavailable Functional Status No Results Mental Status No [...] Xanax 0.5 mg tablet 0.5mg TABLET Oral MA N 3 Times Daily Anxiety FriJun 09 15:00:00 EDT 2017Jun 09 16:49:00 EDT 2017 Xanax 0.5 mg tablet 0.5mg TABLET Oral MA N 3 Times Daily Anxiety FriJun 09 [...] Xanax 0.5 mg tablet 0.5mg TABLET Oral MA N 3 Times Daily Anxiety FriJun 13 [...] Daily Nina Sep 14 20:00:00 EDT 2016 [facility] Sep 18 01:00:00 EDT 2016 metoprolol tartrate 75 mg tablet 1 tablet TABLET Oral 2 Times Daily Wed Sep 13 18:00:00 EDT 2016 [facility] Sep 18 01:00:00 EDT 2016 metFORMIN 500 mg tablet 2 tabs TABLET Or al 1 Time Daily for 7 Days [facility] Sep 07:00:00 EDT 2016 Nina Sep 14 15:42:00 EDT 2016 metFORMIN 500 mg tablet 3 tabs TABLET Or al 1 Time Daily for 7 Days [facility] 07:00:00 EDT 2016 Nina Sep 14 15:42:00 EDT 2016 metFORMIN 500 mg tablet 4 tabs TABLET Or al 1 Time Daily [facility] Dec 31 07:00:00 EDT 2016 Nina Sep 14 15:42:00 EDT 2016 metFORMIN ER 500 mg tablet,extended release 24hr 500mg TABLET, EXTENDED RELEASE 24 HR Oral 1 Time Daily for 7 Days [facility] Sep 07:00:00 EDT 2016 Nina Sep 14 17:36:00 EDT 2016 metFORMIN ER 1,000 mg tablet,extended release 24hr 1,000mg TABLET, EXTENDED RELEASE 24 HR Oral 1 Time Daily for 7 Days [facility] Sep 19 07:00:00 EDT 2016 [facility] Sep 12 14:34:00 EDT 2016 metFORMIN ER 1,000 mg tablet,extended release 24hr 1,500mg TABLET, EXTENDED RELEASE 24 HR Oral 1 Time Daily for 7 Days [facility] Sep 07:00:00 EDT 2016Dec 10 14:35:00 EDT [...] oxyCODONE 5 mg tablet 5mg TABLET Oral MA N Every 6 Hours Pain FriDec 02 [...] Hours Anxiety Fri Sep 19:00:00 EDT 2016 [facility] Sep 02 14:48:00 EDT 2016 [...] 2016 * End Date: * Text: * 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
--- OUTSIDE RECORDS SUMMARY | 2024-09-28 10:39 | XMS_ITS | Clinical Summary ---
Author Organization [facility] Address [address] [place] [address] Care Team Providers Care Machine Tool Builder Name Role Phone Nilo Rincon MD Primary Care Provider + Source Comments [facility],non-owned Affiliates and Associated Physician Practices is amultiple site organization consisting of ambulatory clinics and hospital sitesin [place], [place], [place] and [place]. This disclosure is being madepursuant to the Care Everywhere program and may not contain all information available regarding this patient. Last updated 17.[facility] Allergies Active Allergy Reactions Criticality Noted Date [...] (Wheezing, Shortness of Breath). 7 Active Tiotropium [place]-Olodate rol (STIOLTO RESPIMAT) 2.5-2.5 MCG/ACT Inhale 2 [...] on file Legal Sex Female 5:11 PM TOOLROOM HELPER Gender Identity Not on file Sexual Orientation [...] PANEL (CALCIUM TOTAL) Routine 06/06/2017 6:02 AM TOOLROOM HELPER HEPATITIS SCREEN ACUTE Routine 06/01/2017 5:45 PM TOOLROOM HELPER from Last 3 Months or Most Recently Relevant to Health Maintenance Results * (ABNORMAL) BASIC METABOLIC PANEL (CALCIUM TOTAL) (06/06/2017 6:02 AM TOOLROOM HELPER) BUN 13 7 - 26 mg/dL [facility] Creatinine 0.8 0.6 - 1.2 mg/dL [facility] Comment:Confirmed by repeat analysis. Sodium 141 136 - 145 mmol/L [facility] Potassium 3.5 3.5 - 4.5 mmol/L [facility] Chloride 105 98 - 107 mmol/L [facility] CO2 23 22 - 29 mmol/L [facility] Glucose 82 70 - 115 mg/dL [facility] Calcium 8.3(L) 8.4 - 10.2 mg/dL [facility] Anion Gap 17 8 - 18 [facility] BUN/Creatinine Ratio 16 7 - 23 [facility] Osmolality Calculated 291 270 - 300 mOsm/kg [facility] eGFR >60 >60 mL/min/1.7 3 m2 [facility] Blood specimen (specimen) BLOOD SPECIMEN / Unknown 06/06/2017 6:02 AM TOOLROOM HELPER 06/06/2017 6:11 AM TOOLROOM HELPER us Lizbeth Bell MD LAB - CHEMISTRY ORDERABLES Final Result Performing Organization Address [facility] Co de Phone Number [address] [phone] * HEPATITIS SCREEN ACUTE (06/01/2017 5:45 PM TOOLROOM HELPER) Hepatitis A Virus Antibody IgM Non-react [facility] Hepatitis B Virus Surface Antigen Non-react [facility] Hepatitis B Core Virus Antibody IgM Non-react [facility] Hepatitis C Antibody Non-react [facility] Comment: Hepatitis C Antibody screen indicates no serologic evidence of past or current infection with Hepatitis C Virus. Patients with unexplained liver disease who are immunocompromised or suspected of having acute Hepatitis C infection may benefit from Nucleic Acid Test (DAVID) for Hepatitis C Viral RNA to confirm Hepatitis C status. Blood specimen (specimen) BLOOD SPECIMEN / Unknown 06/01/2017 5:45 PM TOOLROOM HELPER 06/01/2017 5:59 PM TOOLROOM HELPER us Wilbur Landrum MD LAB - CHEMISTRY ORDERABLES Fin al Result Performing Organization Address City/State/[facility] [place] [address], [facility] [phone] from Last 3 Months or Most Recently Relevant to [place] [address] [place] [employer]NA MEDICARE ADV SELF PAY NO INSURANCE Member Subscriber Plan / Payer (Ef fective for All Dates) Name:Claudia Elizondo Celina Member ID:Not on file Relation to Subscriber:Not on file Name:MIKHAILCLAUDIA Subscriber ID:Not on file (Home) Address: [address] [place] [id number] Payer ID:Not on file Group ID:Not on file Type:Self Pay Address: [place], [place] Care Teams Machine Tool Builder Relationship Specialty Start Date End Date Nilo Rincon MD [address] [address] PCP - General 11/08/16
--- OUTSIDE RECORDS SUMMARY | 2024-09-28 10:40 | XMS_ITS | Encounter Summary ---
Author Organization [facility] Address [address] [place] [address] Care Team Providers Care Septic Tank Servicer Name Role Phone Unavailable Primary Care Provider Unavailabl e Encounter Details Date Type Department Care Team (Late st Contact Info) Description 12/13/2016 Lab Requisition [facility] [address] [place] [address] Shekhar Johnson MD [address] [place] [address] Anemia Social History Tobacco Use [...]
--- OUTSIDE RECORDS SUMMARY | 2024-09-28 10:40 | XMS_ITS | Encounter Summary ---
Author Organization [employer] Address [address] [place] [address] Care Team Providers Care Oral And Maxillofacial Surgeon Name Role Phone Unavailable Primary Care Provider Unavailabl e Encounter Details Date Type Department Care Team (Late st Contact Info) Description 12/12/2016 Lab Requisition [facility] Services [facility] [employer] [address] [address] Shekhar Johnson MD [address] [place] [address] Chronic obstructive pulmonary disease (CMS/HCC); [...] - 145 mmol/L 12/12/2016 12:13 PM CDT [facility] LABORATORY [facility] POTASSIUM 3.4(L) 3.5 - 5.0 mmol/L 12/12/2016 12:13 PM CDT [facility] CHLORIDE 96(L) 98 - 107 mmol/L 12/12/2016 12:13 PM [facility] CO2 28 22 - 29 mmol/L 12/12/2016 12:13 PM [facility] CALCIUM 8.7 8.6 - 10.2 mg/dL 12/12/2016 12:13 PM [facility] BUN 13 8 - 23 mg/dL 12/12/2016 12:13 PM [facility] CREATININE 1.08(H) 0.51 - 0.95 mg/dL 12/12/2016 12:13 PM [facility] GLUCOSE 151(H) 74 - 99 mg/dL 12/12/2016 12:13 PM [facility] TOTAL PROTEIN 7.7 6.7 - 8.6 g/dL 12/12/2016 12:13 PM [facility] ALBUMIN 3.5 3.5 - 5.2 g/dL 12/12/2016 12:13 PM [facility] BILIRUBIN TOTAL 0.2 0.2 - 1.1 mg/dL 12/12/2016 12:13 PM [facility] ALKALINE PHOSPHATASE 98 35 - 104 U/L 12/12/2016 12:13 PM [facility] AST 12 <33 U/L 12/12/2016 12:13 PM [facility] ALT <5 <34 U/L 12/12/2016 12:13 PM [facility] GFR 51(L) >=60 mL/min/1.7 3 sq meter 12/12/2016 12:13 PM [facility] Comment: eGFR [...] 3 sq meter 12/12/2016 12:13 PM T [facility] LABORATORY SERVICES - [facility] ANION GAP 16 8 - 16 mmol/L 12/12/2016 12:13 PM [facility] LABORATORY SERVICES - [facility] Blood Venipuncture / Unknown 12/12/2016 7:25 AM CDT 12/12/2016 10:43 AM CDT [facility] LABORATORY SERVICES - [facility] - 12/12/2016 12:13 PM CDT Samples containing indocyanine green cause interferences on Total and/or Direct Bilirubin and must not be measured. Shekhar Johnson MD CHEMISTRY ORDERABLES Final R esult [facility]# [id number] [address] [facility] [place] [address] * (ABNORMAL) CBC WITH DIFFERENTIAL (12/12/2016 7:25 AM CDT) WBC 5.5 4.0 - 9.8 K/uL 12/12/2016 11:31 AM [facility] LABORATORY SERVICES [facility] RBC 3.04(L) 3.90 - 4.90 M/uL 12/12/2016 11:31 AM [facility] LABORATORY SERVICES [facility] HEMOGLOBIN 8.1(L) 11.8 - 14.8 g/dL 12/12/2016 11:31 AM [facility] LABORATORY SERVICES [facility] HEMATOCRIT 27.5(L) 35.5 - 44.0 % 12/12/2016 11:31 AM [facility] LABORATORY SERVICES - [facility] MCV 90.5 82.0 - 99.0 fL 12/12/2016 11:31 AM [facility] LABORATORY SERVICES - [facility] MCH 26.6(L) 27.2 - 32.6 pg 12/12/2016 11:31 AM [facility] LABORATORY SERVICES [facility] MCHC 29.5(L) 31.5 - 35.5 g/dL 12/12/2016 11:31 AM [facility] RDW 16.1(H) 11.5 - 14.5 % 12/12/2016 11:31 AM CDT [facility] RDW-STDEV 53.2(H) 37.1 - 48.7 fL 12/12/2016 11:31 AM [employer] LABORATORY SERVICES - [facility] PLATELETS 226 140 - 350 K/uL 12/12/2016 11:31 AM [facility] MPV 11.1 9.3 - 12.4 fL 12/12/2016 11:31 AM [facility] NEUTROPHILS 70 % 12/12/2016 11:31 AM [facility] LYMPHOCYTES 19 % 12/12/2016 11:31 AM [facility] MONOCYTES 8 % 12/12/2016 11:31 AM [employer] LAB[facility]ATORY [facility] - [facility] EOSINOPHILS 2 % 12/12/2016 11:31 AM [employer] [facility] BASOPHILS 0 % 12/12/2016 11:31 AM [employer] [facility] IMMATURE GRANULOCYTES 0 % 12/12/2016 11:31 AM [employer] [facility] - [facility] NEUTROPHIL ABSOLUTE 3.84 1.90 - 7.00 K/uL 12/12/2016 11:31 AM [employer] LAB[facility]ATORY [facility] - [facility] LYMPHOCYTE ABSOLUTE 1.06 0.70 - 4.50 K/uL 12/12/2016 11:31 AM [employer] [facility] MONOCYTE ABSOLUTE 0.45 0.10 - 1.30 K/uL 12/12/2016 11:31 AM [employer] LAB[facility]ATORY [facility] - [facility] EOSINOPHIL ABSOLUTE 0.09 0.00 - 0.70 K/uL 12/12/2016 11:31 AM [employer] [facility] BASOPHILS ABSOLUTE 0.02 0.00 - 0.20 K/uL 12/12/2016 11:31 AM [employer] [facility] IMMATURE GRANULOCYTES ABSOLUTE 0.02 0.00 - 0.03 K/uL 12/12/2016 11:31 AM [employer] [facility] Blood Venipuncture / Unknown 12/12/2016 7:25 AM CDT 12/12/2016 10:45 AM CDT Shekhar Johnson MD HEMATOLOGY ORDERABLES Final Result Performing Organization Address City/State/RUST Co de Phone Number [facility] LABORATORY [facility]# [id number] [address] [facility] [place] [address] documented in this encounter Visit Diagnoses Diagnosis Chronic obstructive pulmonary disease (CMS/HCC) Chronic airway obstruction, not elsewhere classified Essential (primary) hypertension Unspecified essential hypertension 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
--- OUTSIDE RECORDS SUMMARY | 2024-09-28 10:40 | XMS_ITS | Encounter Summary ---
Author Organization [employer] Address [address] [place] [address] Care Team Providers Care Meter Repairer Name Role Phone Unavailable Primary Care Provider Unavailabl e Encounter Details Date Type Department Care Team (Late st Contact Info) Description 12/06/2016 Lab Requisition [facility] Laboratory Services [facility] [address] [place] [address] Shekhar Johnson MD [address] [place] [address] Anemia Social History Tobacco Use [...] - 9.8 K/uL 12/06/2016 8:47 AM CDT [facility] LABORATORY SERVICES [facility] RBC 2.93(L) 3.90 - 4.90 M/uL 12/06/2016 8:47 AM CDT [facility] LABORATORY SERVICES [facility] HEMOGLOBIN 8.1(L) 11.8 - 14.8 g/dL 12/06/2016 8:47 AM CDT [facility] LABORATORY SERVICES [facility] HEMATOCRIT 27.2(L) 35.5 - 44.0 % 12/06/2016 8:47 AM CDT [facility] MCV 92.8 82.0 - 99.0 fL 12/06/2016 8:47 AM CDT [facility] [employer] LABORATORY SERVICES - [facility] MCH 27.6 27.2 - 32.6 pg 12/06/2016 8:47 AM CDT [employer] LABORATORY SERVICES - [facility] MCHC 29.8(L) 31.5 - 35.5 g/dL 12/06/2016 8:47 AM CDT [employer]ATORY [facility] - [facility] RDW 15.9(H) 11.5 - 14.5 % 12/06/2016 8:47 AM CDT [facility]ATORY SERVICES - [facility] RDW-STDEV 52.7(H) 37.1 - 48.7 fL 12/06/2016 8:47 AM CDT [employer]ATORY SERVICES - [facility] PLATELETS 208 140 - 350 K/uL 12/06/2016 8:47 AM CDT [employer] LABORATORY SERVICES - . [facility] MPV 11.0 9.3 - 12.4 fL 12/06/2016 8:47 AM CDT [employer] NEUTROPHILS 60 % 12/06/2016 8:47 AM CDT [employer] LYMPHOCYTES 24 % 12/06/2016 8:47 AM CDT [employer] MONOCYTES 10 % 12/06/2016 8:47 AM CDT [employer] EOSINOPHILS 6 % 12/06/2016 8:47 AM CDT [facility] - [facility] BASOPHILS 1 % 12/06/2016 8:47 AM CDT [facility] LABORATORY SERVICES - [facility] IMMATURE GRANULOCYTES 0 % 12/06/2016 8:47 AM CDT [employer]AT[facility] - [facility] NEUTROPHIL ABSOLUTE 2.35 1.90 - 7.00 K/uL 12/06/2016 8:47 AM CDT [facility] - [facility] LYMPHOCYTE ABSOLUTE 0.94 0.70 - 4.50 K/uL 12/06/2016 8:47 AM CDT [employer]AT[facility] - [facility] MONOCYTE ABSOLUTE 0.37 0.10 - 1.30 K/uL 12/06/2016 8:47 AM CDT [facility]AT[facility] - [facility] EOSINOPHIL ABSOLUTE 0.22 0.00 - 0.70 K/uL 12/06/2016 8:47 AM CDT [employer]AT[facility] - [facility] BASOPHILS ABSOLUTE 0.02 0.00 - 0.20 K/uL 12/06/2016 8:47 AM CDT [facility] LABORATORY SERVICES - [facility] IMMATURE GRANULOCYTES ABSOLUTE 0.00 0.00 - 0.03 K/uL 12/06/2016 8:47 AM CDT [facility] LABORATORY SERVICES - [facility] Blood Venipuncture / Unknown 12/06/2016 6:10 AM CDT 12/06/2016 8:22 AM CDT Shekhar Johnson MD HEMATOLOGY ORDERABLES Final Result [facility] [id number] [address] [place] [address] documented in this encounter Visit Diagnoses Diagnosis Anemia Anemia, unspecified documented in this encounter
--- OUTSIDE RECORDS SUMMARY | 2024-09-28 10:40 | XMS_ITS ---
Author Name Auto Generated, Auto Generated Organization [facility] Address [address] [place] [address] Phone [phone] Care Team Providers Care Professional Golf Tournament Player Name Role Phone Shekhar Johnson Unavailable Nilo Rincon Unavailable [phone] Functional Status Mental Status Allergies and Intolerances Medications Problems Reason for Referral Past Medical History
--- OUTSIDE RECORDS SUMMARY | 2024-09-28 10:40 | XMS_ITS | Clinical Summary ---
Author Organization [facility] Address [address] [place] [address] Phone Care Team Providers Care Well Tender Name Role Phone Unavailable Primary Care Provider [...]
--- OUTSIDE RECORDS SUMMARY | 2024-09-28 10:40 | XMS_ITS | Encounter Summary ---
Author Organization [employer] Address [address] [place] [address] Care Team Providers Care Assembly Riveter Name Role Phone Unavailable Primary Care Provider Unavailabl e Encounter Details Date Type Department Care Team (Late st Contact Info) Description 12/03/2016 Lab Requisition [facility] Laboratory Services [facility] [place] [address] [place] [address] Shekhar Johnson MD [address] [place] [address] Essential (primary) hypertension Social History [...] 162 <200 mg/dL 12/03/2016 5:22 PM T [facility] TRIGLYCERIDE 274(H) <150 mg/dL 12/03/2016 5:22 PM CDT [facility] HDL 40 40 - 59 mg/dL 12/03/2016 5:22 PM T [facility] LDL CALCULATED 67 <100 mg/dL 12/03/2016 5:22 PM T [facility] NON-HDL CHOLESTEROL 122 <130 mg/dL 12/03/2016 5:22 PM T [facility] Blood Venipuncture / Unknown 12/03/2016 8:40 AM CDT 12/03/2016 3:15 PM CDT [facility] - 12/03/2016 5:22 PM CDT TOTAL CHOLESTEROL [...] Johnson MD CHEMISTRY ORDERABLES Final R esult [facility]# [id number] [address] [facility] [place] [address] * T4 FREE (12/03/2016 8:40 AM CDT) T4 FREE 1.36 0.90 - 1.70 ng/dL 12/03/2016 7:04 PM CDT [facility] Blood Venipuncture / Unknown 12/03/2016 8:40 AM CDT 12/03/2016 3:15 PM CDT Shekhar Johnson MD CHEMISTRY ORDERABLES Final R esult [facility] CLIA# [id number] [address] [place] [address] * TSH (12/03/2016 8:40 AM CDT) Pathologist [facility] TSH 1.07 0.27 - 4.20 uIU/mL 12/03/2016 7:04 PM CDT [facility] LABORATORY [facility] Blood Venipuncture / Unknown 12/03/2016 8:40 AM CDT 12/03/2016 3:15 PM CDT Shekhar Johnson MD CHEMISTRY ORDERABLES Final R esult Performing Organization Address City/[facility]/ZIP Co de Phone Number [facility]# [id number] [address] [place] [address] * HEMOGLOBIN A1C (12/03/2016 8:40 AM CDT) [facility] HEMOGLOBIN A1C 5.7 4.0 - 6.0 % 12/03/2016 4:27 PM CDT [facility] Comment:Note: Effective as o f 04/21/2015 a new methodology, Turbidimetric inhibition immunoassay (TINIA),has been implemented. EST. AVG GLUCOSE, A1C 117 mg/dL 12/03/2016 4:27 PM CDT [facility] [employer] Blood Venipuncture / Unknown 12/03/2016 8:40 AM CDT 12/03/2016 3:34 PM CDT Shekhar Johnson MD CHEMISTRY ORDERABLES Final R esult [facility] [employer] CLIA# [id number] [address] [place] [address] * (ABNORMAL) COMPREHENSIVE METABOLIC PANEL (12/03/2016 8:40 AM CDT) SODIUM 150(H) 136 - 145 mmol/L 12/03/2016 5:39 PM CDT [facility] LAB[facility]ATORY SERVICES - [facility] POTASSIUM 4.2 3.5 - 5.0 mmol/L 12/03/2016 5:39 PM CDT [facility] LABORATORY SERVICES - [facility] CHLORIDE 102 98 - 107 mmol/L 12/03/2016 5:39 PM CDT [facility]AT[facility] CO2 25 22 - 29 mmol/L 12/03/2016 5:39 PM CDT [facility]ATORY [facility] - [facility] CALCIUM 9.3 8.6 - 10.2 mg/dL 12/03/2016 5:39 PM CDT [facility]ATORY [facility] - [facility] BUN 15 8 - 23 mg/dL 12/03/2016 5:39 PM CDT [facility] CREATININE 1.21(H) 0.51 - 0.95 mg/dL 12/03/2016 5:39 PM CDT [facility] - [facility] GLUCOSE 105(H) 74 - 99 mg/dL 12/03/2016 5:39 PM CDT [facility] TOTAL PROTEIN 7.9 6.7 - 8.6 g/dL 12/03/2016 5:39 PM CDT [facility] - [facility] ALBUMIN 3.5 3.5 - 5.2 g/dL 12/03/2016 5:39 PM CDT [facility] BILIRUBIN TOTAL 0.3 0.2 - 1.1 mg/dL 12/03/2016 5:39 PM CDT [facility] ALKALINE PHOSPHATASE 74 35 - 104 U/L 12/03/2016 5:39 PM CDT [facility] AST 25 <33 U/L 12/03/2016 5:39 PM CDT [facility] ALT 10 <34 U/L 12/03/2016 5:39 PM CDT [facility] GFR 44(L) >=60 mL/min/1.7 3 sq meter 12/03/2016 5:39 PM CDT [facility] LABORATORY SERVICES [facility] Comment: [...] 3 sq meter 12/03/2016 5:39 PM T [facility] LABORATORY [facility] ANION GAP 23(H) 8 - 16 mmol/L 12/03/2016 5:39 PM [facility] Blood Venipuncture / Unknown 12/03/2016 8:40 AM CDT 12/03/2016 3:15 PM CDT Narrative [facility] LABORATORY [facility] - 12/03/2016 5:39 PM CDT Samples containing indocyanine green cause interferences on Total and/or Direct Bilirubin and must not be measured. us Shekhar Johnson MD CHEMISTRY ORDERABLES Final R esult [facility]# [id number] [address] [facility] [place] [address] * (ABNORMAL) CBC WITH DIFFERENTIAL (12/03/2016 8:40 AM CDT) [facility] WBC 4.9 4.0 - 9.8 K/uL 12/03/2016 3:02 PM [facility] LABORATORY [facility] RBC 3.15(L) 3.90 - 4.90 M/uL 12/03/2016 3:02 PM [facility] LABORATORY [facility] HEMOGLOBIN 8.7(L) 11.8 - 14.8 g/dL 12/03/2016 3:02 PM [facility] LABORATORY [facility] HEMATOCRIT 30.0(L) 35.5 - 44.0 % 12/03/2016 3:02 PM CDT [facility] LABORATORY SERVICES - [facility] MCV 95.2 82.0 - 99.0 fL 12/03/2016 3:02 PM CDT [facility] LABORATORY SERVICES - [facility] MCH 27.6 27.2 - 32.6 pg 12/03/2016 3:02 PM CDT [facility] LABORATORY SERVICES - [facility] MCHC 29.0(L) 31.5 - 35.5 g/dL 12/03/2016 3:02 PM CDT [facility] LABORATORY SERVICES - [facility] RDW 15.8(H) 11.5 - 14.5 % 12/03/2016 3:02 PM CDT [employer] LABORATORY SERVICES - [facility] RDW-STDEV 54.2(H) 37.1 - 48.7 fL 12/03/2016 3:02 PM CDT [employer] LABORATORY SERVICES - [facility] PLATELETS 216 140 - 350 K/uL 12/03/2016 3:02 PM CDT [facility] LABORATORY SERVICES - [facility] MPV 11.7 9.3 - 12.4 fL 12/03/2016 3:02 PM CDT [facility] - [facility] NEUTROPHILS 72 % 12/03/2016 3:02 PM CDT [facility] - [facility] LYMPHOCYTES 17 % 12/03/2016 3:02 PM CDT [facility] - [facility] MONOCYTES 7 % 12/03/2016 3:02 PM CDT [facility] - [facility] EOSINOPHILS 4 % 12/03/2016 3:02 PM CDT [facility] LABORATORY SERVICES - [facility] BASOPHILS 0 % 12/03/2016 3:02 PM CDT [facility] - [facility] IMMATURE GRANULOCYTES 0 % 12/03/2016 3:02 PM CDT [facility] LABORATORY SERVICES - . [facility] NEUTROPHIL ABSOLUTE 3.51 1.90 - 7.00 K/uL 12/03/2016 3:02 PM CDT [facility]ATORY SERVICES - [facility] LYMPHOCYTE ABSOLUTE 0.84 0.70 - 4.50 K/uL 12/03/2016 3:02 PM CDT [facility] LABORATORY SERVICES - . [facility] MONOCYTE ABSOLUTE 0.33 0.10 - 1.30 K/uL 12/03/2016 3:02 PM CDT [facility] LABORATORY SERVICES - [facility] EOSINOPHIL ABSOLUTE 0.17 0.00 - 0.70 K/uL 12/03/2016 3:02 PM CDT [facility] LABORATORY SERVICES - [facility] BASOPHILS ABSOLUTE 0.02 0.00 - 0.20 K/uL 12/03/2016 3:02 PM CDT [facility] LABORATORY SERVICES - [facility] IMMATURE GRANULOCYTES ABSOLUTE 0.02 0.00 - 0.03 K/uL 12/03/2016 3:02 PM CDT [facility] LABORATORY SERVICES - [facility] Blood Venipuncture / Unknown 12/03/2016 8:40 AM CDT 12/03/2016 3:00 PM CDT us Shekhar Johnson MD HEMATOLOGY ORDERABLES Final Result [facility] LABORATORY SERVICES [facility]# [id number] [address] [place] [address] documented in this encounter Visit Diagnoses Diagnosis Essential (primary) hypertension Unspecified essential hypertension documented in this encounter
--- OUTSIDE RECORDS SUMMARY | 2024-09-28 10:40 | XMS_ITS | Encounter Summary ---
Author Organization [employer] Address [address] [place] [address] Care Team Providers Care Graduate Student Instructor Name Role Phone Unavailable Primary Care Provider Unavailabl e Encounter Details Date Type Department Care Team (Late st Contact Info) Description 06/23/2017 Lab Requisition [facility] General Laboratory Services [address] [place] [address] Shekhar Johnson MD [address] [place] [address] Heart disease Social History Tobacco [...]
--- OUTSIDE RECORDS SUMMARY | 2024-09-28 10:40 | XMS_ITS | Encounter Summary ---
Author Organization [employer] Address [address] [place] [address] Care Team Providers Care Pedal Assembler Name Role Phone Unavailable Primary Care Provider Unavailabl e Encounter Details Date Type Department Care Team (Late st Contact Info) Description 12/20/2016 Lab Requisition [facility] General Laboratory Services [address] [place] [address] [place] [address] Shekhar Johnson MD [address] [place] [address] Anemia Social History Tobacco Use [...]
--- OUTSIDE RECORDS SUMMARY | 2024-09-28 10:40 | XMS_ITS | Encounter Summary ---
Author Organization [employer] Address [address] [place] [address] Care Team Providers Care Business Advisor Name Role Phone Unavailable Primary Care Provider Unavailabl e Encounter Details Date Type Department Care Team (Late st Contact Info) Description 06/10/2017 Lab Requisition [facility] [address] [place] [address] [place] [address] Shekhar Johnson MD [address] [place] [address] Chronic obstructive pulmonary disease (CMS/HCC); [...] - 1.70 ng/dL 06/10/2017 10:30 AM CDT [facility] LABORATORY [facility] Blood Venipuncture / Unknown 06/10/2017 6:29 AM CDT 06/10/2017 8:35 AM CDT Shekhar Johnson MD CHEMISTRY ORDERABLES Final R esult [facility] CLIA# [id number] [address] [place] [address] * HEMOGLOBIN A1C (06/10/2017 6:29 AM CDT) HEMOGLOBIN A1C 5.6 4.0 - 6.0 % 06/10/2017 11:15 AM CDT [facility] EST. AVG GLUCOSE, A1C 114 mg/dL 06/10/2017 11:15 AM CDT [facility] Blood Venipuncture / Unknown 06/10/2017 6:29 AM CDT 06/10/2017 8:35 AM CDT Shekhar Johnson MD CHEMISTRY ORDERABLES Final R esult [facility] CLIA# [id number] [address] [place] [address] * TSH (06/10/2017 6:29 AM CDT) TSH 1.08 0.27 - 4.20 uIU/mL 06/10/2017 10:30 AM CDT [facility] Blood Venipuncture / Unknown 06/10/2017 6:29 AM CDT 06/10/2017 8:35 AM CDT Shekhar Johnson MD CHEMISTRY ORDERABLES Final R esult [facility] CLIA# [id number] [address] [place] [address] * (ABNORMAL) CBC WITH DIFFERENTIAL (06/10/2017 6:29 AM CDT) [facility] WBC 4.7 4.0 - 9.8 K/uL 06/10/2017 9:51 AM CDT [facility] RBC 3.26(L) 3.90 - 4.90 M/uL 06/10/2017 9:51 AM CDT [facility] HEMOGLOBIN 8.3(L) 11.8 - 14.8 g/dL 06/10/2017 9:51 AM CDT [facility] HEMATOCRIT 28.4(L) 35.5 - 44.0 % 06/10/2017 9:51 AM CDT [facility] MCV 87.1 82.0 - 99.0 fL 06/10/2017 9:51 AM CDT [facility] MCH 25.5(L) 27.2 - 32.6 pg 06/10/2017 9:51 AM CDT [facility] MCHC 29.2(L) 31.5 - 35.5 g/dL 06/10/2017 9:51 AM CDT [facility] RDW 16.3(H) 11.5 - 14.5 % 06/10/2017 9:51 AM CDT [facility] RDW-STDEV 51.3(H) 37.1 - 48.7 fL 06/10/2017 9:51 AM CDT [facility] PLATELETS 241 [...] BASOPHILS 0 % 06/10/2017 9:51 AM CDT [facility] IMMATURE GRANULOCYTES 1 % 06/10/2017 9:51 AM CDT [facility] Comment:IG (Immature Granulo cyte) count includes Metamyelocytes, Myelocytes, and Promyelocytes NEUTROPHIL ABSOLUTE 3.24 1.90 - 7.00 K/uL 06/10/2017 9:51 AM CDT [facility] LYMPHOCYTE ABSOLUTE 0.77 0.70 - 4.50 K/uL 06/10/2017 9:51 AM CDT [facility] MONOCYTE ABSOLUTE 0.39 0.10 - 1.30 K/uL 06/10/2017 9:51 AM CDT [facility] SERVICES [facility] EOSINOPHIL ABSOLUTE 0.22 0.00 - 0.70 K/uL 06/10/2017 9:51 AM CDT [facility] SERVICES [facility] BASOPHILS ABSOLUTE 0.02 0.00 - 0.20 K/uL 06/10/2017 9:51 AM CDT [facility] IMMATURE GRANULOCYTES ABSOLUTE 0.03 0.00 - 0.03 K/uL 06/10/2017 9:51 AM T [facility] Blood Venipuncture / Unknown 06/10/2017 6:29 AM CDT 06/10/2017 8:35 AM CDT us Shekhar Johnson MD HEMATOLOGY ORDERABLES Final Result [facility] SERVICES - [facility]# [id number] [address] [facility] [place] [address] documented in this encounter Visit Diagnoses Diagnosis Chronic obstructive pulmonary disease (CMS/HCC) Chronic airway obstruction, not elsewhere classified Essential (primary) hypertension Unspecified essential hypertension documented in this encounter
--- OUTSIDE RECORDS SUMMARY | 2024-09-28 10:40 | XMS_ITS | Encounter Summary ---
Author Organization [employer] Address [address] [place] [address] Care Team Providers Care Basket Turner Name Role Phone Unavailable Primary Care Provider Unavailabl e Encounter Details Date Type Department Care Team (Late st Contact Info) Description 06/09/2017 Lab Requisition [facility] [employer] [address] [place] [address] Shekhar Johnson MD [address] [place] [address] Heart failure (CMS/HCC) Social History [...] - 145 mmol/L 06/09/2017 11:02 AM [facility] [employer] LABORATORY SERVICES - [facility] POTASSIUM 3.0(L) 3.5 - 5.0 mmol/L 06/09/2017 11:02 AM CDT [facility] LABORATORY SERVICES - . [facility] CHLORIDE 98 98 - 107 mmol/L 06/09/2017 11:02 AM [facility] [employer] SERVICES - [facility] CO2 30(H) 22 - 29 mmol/L 06/09/2017 11:02 AM [facility] [employer] [facility] CALCIUM 8.0(L) 8.6 - 10.2 mg/dL 06/09/2017 11:02 AM [facility] BUN 6(L) 8 - 23 mg/dL 06/09/2017 11:02 AM [facility] CREATININE 0.89 0.51 - 0.95 mg/dL 06/09/2017 11:02 AM [facility] GLUCOSE 72(L) 74 - 99 mg/dL 06/09/2017 11:02 AM [facility] GFR >60 >=60 mL/min/1.7 3 sq meter 06/09/2017 11:02 AM [facility] [employer] [facility] Comment: eGFR has not been validated for [...] 3 sq meter 06/09/2017 11:[address] [facility] [employer] [facility] ANION GAP 15 8 - 16 mmol/L 06/09/2017 11:02 AM [facility] [employer] [facility] Blood Venipuncture / Unknown 06/09/2017 7:00 AM CDT 06/09/2017 9:34 AM CDT us Shekhar Johnson MD CHEMISTRY ORDERABLES Final R esult [facility] [employer] [facility] [id number] [address] [facility] [place] [address] * (ABNORMAL) BRAIN NATRIURETIC PEPTIDE, BNP OR PROBNP (06/09/2017 7:00 AM CDT) PROBNP, N TERMINAL 1,295(H) <124 pg/mL 06/09/2017 11:[address] [facility] [employer] [facility] Comment: Reference values for screening purposes based on pigskin trimmer's recommendation: Patients less than 75 years: <125 [...] Johnson MD CHEMISTRY ORDERABLES Final R esult [facility] [employer] [facility] CLIA# [id number] [address] [place] [address] documented in this encounter Visit Diagnoses Diagnosis Heart failure (CMS/HCC) Heart failure, unspecified documented in this encounter
--- OUTSIDE RECORDS SUMMARY | 2024-09-28 10:40 | XMS_ITS | Encounter Summary ---
Author Organization [employer] Address [address] [place] [address] Care Team Providers Care Train Brakeman Name Role Phone Unavailable Primary Care Provider Unavailabl e Encounter Details Date Type Department Care Team (Late st Contact Info) Description 06/25/2017 Lab Requisition [facility] [address] [place] [address] [place] [address] Shekhar Johnson MD [address] [place] [address] Encounter for general adult medical [...]
== END 2024-09-28 10:16 | disposition home or self-care (01) ==
LOC: ANHSURGERY 10:29
PROVIDERS: PCP Family Medicine Adolescent Medicine; Visit Provider Internal Medicine Gastroenterology
DX: Z01.818 Encounter for other preprocedural examination (principal)
CPT/HCPCS: 93005

== ENCOUNTER 2024-10-11 02:06 | Day surgery (SDC) | payer MEDICARE, SELFPAY ==
[2024-09-17 13:26] VITALS: BMI 26.7
[2024-10-11] VITALS (8 sets, daily range): BP systolic 125–155; BP diastolic 68–84; PULSE 67–78; RESP 15–22; TEMP 36.4–36.6; O2SAT 96–100
--- NOTE | ~2024-10-11 | XR_ITS ---
EXAMINATION: XR ERCP DATE: 10/11/2024 11:45 CDT INDICATION: ABD PAIN . TECHNIQUE: 6 fluoroscopic images of the right upper quadrant were obtained during ERCP. Fluoroscopy e xposure time was 243.5 seconds. Air Kerma 63.02 mGy. DAP 1.12 mGym2. COMPARISON: CT abdomen pelvis 08/31/2024 FINDINGS/IMPRESSION: Fluoroscopic documentation of ERCP. Please refer to the operative note for complete procedural detail s. Reviewed, dictated and finalized at location K.
--- OUTSIDE RECORDS SUMMARY | 2024-10-11 02:09 | XMS_ITS | Encounter Summary ---
Author Organization [employer] Address [address] [place] [address] Care Team Providers Care Grief Counsellor Name Role Phone Unavailable Primary Care Provider Unavailabl e Encounter Details Date Type Department Care Team (Late st Contact Info) Description 11/30/2016 Lab Requisition [facility] [employer] Laboratory Services [facility] [place] [employer] [address] [place] [address] Shehkar Johnson MD [address] [place] [address] Essential (primary) hypertension Social History [...] WITH DIFFERENTIAL (11/30/2016 1:29 PM CDT) Pathologist [facility] WBC 5.0 4.0 - 9.8 K/uL 11/30/2016 2:53 PM CDT [facility] LABORATORY SERVICES [facility] RBC 3.00(L) 3.90 - 4.90 M/uL 11/30/2016 2:53 PM CDT [facility] LABORATORY SERVICES [facility] HEMOGLOBIN 8.3(L) 11.8 - 14.8 g/dL 11/30/2016 2:53 PM CDT [facility] LABORATORY SERVICES [facility] HEMATOCRIT 27.6(L) 35.5 - 44.0 % 11/30/2016 2:53 PM CDT [facility] MCV 92.0 82.0 - 99.0 fL 11/30/2016 2:53 PM CDT [facility] MCH 27.7 27.2 - 32.6 pg 11/30/2016 2:53 PM CDT [facility] MCHC 30.1(L) 31.5 - 35.5 g/dL 11/30/2016 2:53 PM CDT [facility] RDW 14.9(H) 11.5 - 14.5 % 11/30/2016 2:53 PM CDT [facility] RDW-STDEV 49.8(H) 37.1 - 48.7 fL 11/30/2016 2:53 PM CDT [facility] PLATELETS 201 140 - 350 K/uL 11/30/2016 2:53 PM CDT [facility] MPV 11.4 9.3 - 12.4 fL [...] [facility] - . [facility] IMMATURE GRANULOCYTES 0 % 11/30/2016 2:53 PM CDT [facility] - . [facility] NEUTROPHIL ABSOLUTE 3.85 1.90 - 7.00 K/uL 11/30/2016 2:53 PM CDT [facility] - . [facility] LYMPHOCYTE ABSOLUTE 0.65(L) 0.70 - 4.50 K/uL 11/30/2016 2:53 PM CDT [facility] - . [facility] MONOCYTE ABSOLUTE 0.29 0.10 - 1.30 K/uL 11/30/2016 2:53 PM CDT [facility] - . [facility] EOSINOPHIL ABSOLUTE 0.17 0.00 - 0.70 K/uL 11/30/2016 2:53 PM CDT [facility] BASOPHILS ABSOLUTE 0.03 0.00 - 0.20 K/uL 11/30/2016 2:53 PM CDT [facility] LABORATORY SERVICES - [facility] IMMATURE GRANULOCYTES ABSOLUTE 0.02 0.00 - 0.03 K/uL 11/30/2016 2:53 PM CDT [facility]ORATORY SERVICES - [facility] Blood Venipuncture / Unknown 11/30/2016 1:29 PM CDT 11/30/2016 2:39 PM CDT us Shekhar Johnson MD HEMATOLOGY ORDERABLES Final Result [facility] LABORATORY SERVICES - [facility]# [id number] [address] [place] [address] documented in this encounter Visit Diagnoses Diagnosis Essential (primary) hypertension Unspecified essential hypertension documented in this encounter
--- OUTSIDE RECORDS SUMMARY | 2024-10-11 02:09 | XMS_ITS | Clinical Summary ---
Author Organization [facility] [employer] Address [address] [place] [address] Care Team Providers Care Railway Signalling Engineer Name Role Phone Niol Rincon MD Primary Care Provider + Source Comments [facility],non-owned Affiliates and Associated Physician Practices is amultiple site organization consisting of ambulatory clinics and hospital sitesin [place], [place], [place] and [place]. This disclosure is being madepursuant to the Care Everywhere program and may not contain all information available regarding this patient. Last updated 17.[facility] Allergies Active Allergy Reactions Criticality Noted Date [...] (Wheezing, Shortness of Breath). 7 Active Tiotropium Minoa-Olodate rol (STIOLTO RESPIMAT) 2.5-2.5 MCG/ACT Inhale 2 [...] on file Legal Sex Female 5:11 PM WELDING SPECIALIST Gender Identity Not on file Sexual Orientation [...] - 1-dose 75+ series) 2024 INFLUENZA VACCINE (#1) 2024 12/07/2019 HEPATITIS C SCREENING Completed 06/01/2017 [...] PANEL (CALCIUM TOTAL) Routine 06/06/2017 6:02 AM WELDING SPECIALIST HEPATITIS SCREEN ACUTE Routine 06/01/2017 5:45 PM WELDING SPECIALIST from Last 3 Months or Most Recently Relevant to Health Maintenance Results * (ABNORMAL) BASIC METABOLIC PANEL (CALCIUM TOTAL) (06/06/2017 6:02 AM WELDING SPECIALIST) BUN 13 7 - 26 mg/dL [facility] Creatinine 0.8 0.6 - 1.2 mg/dL [facility] Comment:Confirmed by repeat analysis. Sodium 141 136 - 145 mmol/L [facility] Potassium 3.5 3.5 - 4.5 mmol/L [facility] Chloride 105 98 - 107 mmol/L [facility] CO2 23 22 - 29 mmol/L [facility] Glucose 82 70 - 115 mg/dL [facility] Calcium 8.3(L) 8.4 - 10.2 mg/dL [facility] Anion Gap 17 8 - 18 [facility] BUN/Creatinine Ratio 16 7 - 23 [facility] Osmolality Calculated 291 270 - 300 mOsm/kg [facility] eGFR >60 >60 mL/min/1.7 3 m2 [facility] Blood specimen (specimen) BLOOD SPECIMEN / Unknown 06/06/2017 6:02 AM WELDING SPECIALIST 06/06/2017 6:11 AM WELDING SPECIALIST us Lizbeth Bell MD LAB - CHEMISTRY ORDERABLES Final Result Performing Organization Address [facility] Co de Phone Number [address] [phone] * HEPATITIS SCREEN ACUTE (06/01/2017 5:45 PM WELDING SPECIALIST) Hepatitis A Virus Antibody IgM Non-react [facility] Hepatitis B Virus Surface Antigen Non-react [facility] Hepatitis B Core Virus Antibody IgM Non-react [facility] Hepatitis C Antibody Non-react [facility] Comment: Hepatitis C Antibody screen indicates no serologic evidence of past or current infection with Hepatitis C Virus. Patients with unexplained liver disease who are immunocompromised or suspected of having acute Hepatitis C infection may benefit from Nucleic Acid Test (DAVID) for Hepatitis C Viral RNA to confirm Hepatitis C status. Blood specimen (specimen) BLOOD SPECIMEN / Unknown 06/01/2017 5:45 PM WELDING SPECIALIST 06/01/2017 5:59 PM WELDING SPECIALIST us Wilbur Landrum MD LAB - CHEMISTRY ORDERABLES Fin al Result Performing Organization Address City/State/[facility] Co [place] [address], [facility] [place] [phone] from Last 3 Months or Most Recently Relevant to Health [place] [address] [facility] [employer] MEDICARE ADV SELF PAY NO INSURANCE Member Subscriber Plan / Payer (Ef fective for All Dates) Name:Claudia Elizondo Celina Member ID:Not on file Relation to Subscriber:Not on file Name:MIKHAILCLAUDIA Subscriber ID:Not on file (Home) Address: [address] [place] [id number] Payer ID:Not on file Group ID:Not on file Type:Self Pay Address: [place], [place] Care Teams Railway Signalling Engineer Relationship Specialty Start Date End Date Nilo Rincon MD [address] [address] PCP - General 11/08/16
--- OUTSIDE RECORDS SUMMARY | 2024-10-11 02:09 | XMS_ITS | Encounter Summary ---
Author Organization [employer] Address [address] [place] [address] Care Team Providers Care Senior Genetic Counselor Name Role Phone Unavailable Primary Care Provider Unavailabl e Encounter Details Date Type Department Care Team (Late st Contact Info) Description 06/23/2017 Lab Requisition [facility] Laboratory Services [address] [place] [address] [place] [address] Shekhar Johnson MD [address] [place] [address] Heart disease Social History Tobacco [...]
--- OUTSIDE RECORDS SUMMARY | 2024-10-11 02:09 | XMS_ITS | Clinical Summary ---
Author Organization [facility] Address [address] [place] [phone] Phone Care Team Providers Care Referral Agent Name Role Phone Unavailable Primary Care Provider [...] (1 of 2) 1999 OSTEOPOROSIS SCREENING 2014 RSV VACCINE (60+ or ) (1 - 1-dose 75+ series) 2024 INFLUENZA VACCINE (#1) 2024
--- OUTSIDE RECORDS SUMMARY | 2024-10-11 02:09 | XMS_ITS | Encounter Summary ---
Author Organization [employer] Address [address] [place] [address] Care Team Providers Care Bus System Operator Name Role Phone Unavailable Primary Care Provider Unavailabl e Encounter Details Date Type Department Care Team (Late st Contact Info) Description 12/13/2016 Lab Requisition [facility] [place] [address] [place] [address] Shekhar Johnson MD [address] [place] [address] Anemia Social History Tobacco Use [...]
--- OUTSIDE RECORDS SUMMARY | 2024-10-11 02:09 | XMS_ITS ---
Author Name Auto Generated, Auto Generated Organization [employer] [facility] Address [address] [place] [address] Phone [phone] Care Team Providers Care Belt Worker Name Role Phone Waldodenisha Shekhar Morley Unavailable [phone] Nilo Rincon Unavailable Functional Status No Results [...] Xanax 0.5 mg tablet 0.5mg TABLET Oral AR N 3 Times Daily Anxiety FriJun 09 15:00:00 EDT 2017Jun 09 16:49:00 EDT 2017 Xanax 0.5 mg tablet 0.5mg TABLET Oral AR N 3 Times Daily Anxiety FriJun 09 [...] Xanax 0.5 mg tablet 0.5mg TABLET Oral AR N 3 Times Daily Anxiety FriJun 13 [...] Daily Nina Sep 14 20:00:00 EDT 2016 [facility] Sep 18 01:00:00 EDT 2016 metoprolol tartrate 75 mg tablet 1 tablet TABLET Oral 2 Times Daily Wed Sep 13 18:00:00 EDT 2016 [facility] Sep 18 01:00:00 EDT 2016 metFORMIN 500 mg tablet 2 tabs TABLET Or al 1 Time Daily for 7 Days [facility] Sep 07:00:00 EDT 2016 Nina Sep 14 15:42:00 EDT 2016 metFORMIN 500 mg tablet 3 tabs TABLET Or al 1 Time Daily for 7 Days [facility] 07:00:00 EDT 2016 Nina Sep 14 15:42:00 EDT 2016 metFORMIN 500 mg tablet 4 tabs TABLET Or al 1 Time Daily [facility] Dec 31 07:00:00 EDT 2016 Nina Sep 14 15:42:00 EDT 2016 metFORMIN ER 500 mg tablet,extended release 24hr 500mg TABLET, EXTENDED RELEASE 24 HR Oral 1 Time Daily for 7 Days [facility] Sep 07:00:00 EDT 2016 Nina Sep 14 17:36:00 EDT 2016 metFORMIN ER 1,000 mg tablet,extended release 24hr 1,000mg TABLET, EXTENDED RELEASE 24 HR Oral 1 Time Daily for 7 Days [facility] Sep 19 07:00:00 EDT 2016 [facility] Sep 12 14:34:00 EDT 2016 metFORMIN ER 1,000 mg tablet,extended release 24hr 1,500mg TABLET, EXTENDED RELEASE 24 HR Oral 1 Time Daily for 7 Days [facility] Sep 07:00:00 EDT 2016Dec 10 14:35:00 [...] oxyCODONE 5 mg tablet 5mg TABLET Oral AR N Every 6 Hours Pain FriDec 02 [...] Hours Anxiety Fri Sep 19:00:[address] [facility] Sep 02 14:48:00 EDT 2016 [...] * Text: * Atherosclerotic heart disease of [place] coronary artery without angina pectoris* Code: * [...] 2017 * End Date: * Text: * occ ther (current) use of aspirin* Code: * Start Date: FriJun 06 00:00:00 EST 2017 * End Date: * Text: * Diverticulitis of intestine, part unspecified, without perforation or abscess without bleeding* Code: * Start Date: FriJun 17 00:00:00 EDT 2017 * End Date: * Text: * Personal history of pulmonary embolism* Code: * Start Date: FriJun 17 00:00:00 EDT 2018 * End Date: * Text: Reason for Referral Past Medical History
--- OUTSIDE RECORDS SUMMARY | 2024-10-11 02:09 | XMS_ITS | Encounter Summary ---
Author Organization [employer] Address [address] [place] [address] Care Team Providers Care Chief Clerk Shelter Name Role Phone Unavailable Primary Care Provider Unavailabl e Encounter Details Date Type Department Care Team (Late st Contact Info) Description 12/12/2016 Lab Requisition [email or web address] [facility] [employer] [address] [place] [address] Shekhar Johnson MD [address] [place] [address] Chronic obstructive pulmonary disease (CMS/HCC); [...] - 145 mmol/L 12/12/2016 12:13 PM CDT [facility] LABORATORY [facility] POTASSIUM 3.4(L) 3.5 - 5.0 mmol/L 12/12/2016 12:13 PM CDT [facility] CHLORIDE 96(L) 98 - 107 mmol/L 12/12/2016 12:13 PM [facility] [employer] [facility] CO2 28 22 - 29 mmol/L 12/12/2016 12:13 PM [facility] [employer] [facility] CALCIUM 8.7 8.6 - 10.2 mg/dL 12/12/2016 12:13 PM [facility] [employer] [facility] BUN 13 8 - 23 mg/dL 12/12/2016 12:13 PM [facility] [employer] [facility] CREATININE 1.08(H) 0.51 - 0.95 mg/dL 12/12/2016 12:13 PM [facility] [employer] [facility] GLUCOSE 151(H) 74 - 99 mg/dL 12/12/2016 12:13 PM [facility] [employer] [facility] TOTAL PROTEIN 7.7 6.7 - 8.6 g/dL 12/12/2016 12:13 PM [facility] [employer] [facility] ALBUMIN 3.5 3.5 - 5.2 g/dL 12/12/2016 12:13 PM [facility] [employer] [facility] BILIRUBIN TOTAL 0.2 0.2 - 1.1 mg/dL 12/12/2016 12:13 PM [facility] [employer] [facility] ALKALINE PHOSPHATASE 98 35 - 104 U/L 12/12/2016 12:13 PM [facility] [employer] [facility] AST 12 <33 U/L 12/12/2016 12:13 PM [facility] [employer] [facility] ALT <5 <34 U/L 12/12/2016 12:13 PM [facility] [employer] [facility] GFR 51(L) >=60 mL/min/1.7 3 sq meter 12/12/2016 12:13 PM [facility] [employer] [facility] Comment: eGFR [...] 3 sq meter 12/12/2016 12:13 PM T [facility] - [facility] ANION GAP 16 8 - 16 mmol/L 12/12/2016 12:13 PM [facility] - [facility] Blood Venipuncture / Unknown 12/12/2016 7:25 AM CDT 12/12/2016 10:43 AM CDT [facility]ATORY SERVICES - [facility] - 12/12/2016 12:13 PM CDT Samples containing indocyanine green cause interferences on Total and/or Direct Bilirubin and must not be measured. Shekhar Johnson MD CHEMISTRY ORDERABLES Final R esult [facility]# [id number] [address] [facility] [place] [address] * (ABNORMAL) CBC WITH DIFFERENTIAL (12/12/2016 7:25 AM CDT) WBC 5.5 4.0 - 9.8 K/uL 12/12/2016 11:31 AM [facility]ATORY SERVICES [facility] RBC 3.04(L) 3.90 - 4.90 M/uL 12/12/2016 11:31 AM [facility]ATORY SERVICES [facility] HEMOGLOBIN 8.1(L) 11.8 - 14.8 g/dL 12/12/2016 11:31 AM [facility] SERVICES [facility] HEMATOCRIT 27.5(L) 35.5 - 44.0 % 12/12/2016 11:31 AM [facility] - [facility] MCV 90.5 82.0 - 99.0 fL 12/12/2016 11:31 AM [facility] MCH 26.6(L) 27.2 - 32.6 pg 12/12/2016 11:31 AM [facility]ATORY SERVICES [facility] MCHC 29.5(L) 31.5 - 35.5 g/dL 12/12/2016 11:31 AM [employer] [facility] RDW 16.1(H) 11.5 - 14.5 % 12/12/2016 11:31 AM CDT [employer] [facility] RDW-STDEV 53.2(H) 37.1 - 48.7 fL 12/12/2016 11:31 AM [employer] [facility]AT[facility] PLATELETS 226 140 - 350 K/uL 12/12/2016 11:31 AM [employer] [facility] MPV 11.1 9.3 - 12.4 fL 12/12/2016 11:31 AM [employer] [facility] NEUTROPHILS 70 % 12/12/2016 11:31 AM [employer] [facility] LYMPHOCYTES 19 % 12/12/2016 11:31 AM [employer] [facility] MONOCYTES 8 % 12/12/2016 11:31 AM [facility] EOSINOPHILS 2 % 12/12/2016 11:31 AM [facility] BASOPHILS 0 % 12/12/2016 11:31 AM [facility] IMMATURE GRANULOCYTES 0 % 12/12/2016 11:31 AM [facility] NEUTROPHIL ABSOLUTE 3.84 1.90 - 7.00 K/uL 12/12/2016 11:31 AM [facility] LYMPHOCYTE ABSOLUTE 1.06 0.70 - 4.50 K/uL 12/12/2016 11:31 AM [facility] MONOCYTE ABSOLUTE 0.45 0.10 - 1.30 K/uL 12/12/2016 11:31 AM [facility] EOSINOPHIL ABSOLUTE 0.09 0.00 - 0.70 K/uL 12/12/2016 11:31 AM [facility] BASOPHILS ABSOLUTE 0.02 0.00 - 0.20 K/uL 12/12/2016 11:31 AM [facility] IMMATURE GRANULOCYTES ABSOLUTE 0.02 0.00 - 0.03 K/uL 12/12/2016 11:31 AM [facility] Blood Venipuncture / Unknown 12/12/2016 7:25 AM CDT 12/12/2016 10:45 AM CDT Shekhar Johnson MD HEMATOLOGY ORDERABLES Final Result Performing Organization Address City/State/[facility] Co de Phone Number 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
--- OUTSIDE RECORDS SUMMARY | 2024-10-11 02:09 | XMS_ITS | Encounter Summary ---
Author Organization [employer] Address [address] [place] [address] Care Team Providers Care Bridge Ironworker Helper Name Role Phone Unavailable Primary Care Provider Unavailabl e Encounter Details Date Type Department Care Team (Late st Contact Info) Description 06/09/2017 Lab Requisition [facility] Services [facility] [employer] [address] [place] [address] Shekhar Johnson MD [address] [place] [address] Heart failure (CMS/HCC) Social History [...] - 145 mmol/L 06/09/2017 11:02 AM [employer] [facility]ATORY SERVICES - [facility] POTASSIUM 3.0(L) 3.5 - 5.0 mmol/L 06/09/2017 11:02 AM CDT [employer] LABORATORY SERVICES - . [facility] CHLORIDE 98 98 - 107 mmol/L 06/09/2017 11:02 AM [employer] LAB[facility]ATORY SERVICES - [facility] CO2 30(H) 22 - 29 mmol/L 06/09/2017 11:02 AM [facility] [facility] CALCIUM 8.0(L) 8.6 - 10.2 mg/dL 06/09/2017 11:02 AM [facility] BUN 6(L) 8 - 23 mg/dL 06/09/2017 11:02 AM [facility] CREATININE 0.89 0.51 - 0.95 mg/dL 06/09/2017 11:02 AM [facility] GLUCOSE 72(L) 74 - 99 mg/dL 06/09/2017 11:02 AM [facility] GFR >60 >=60 mL/min/1.7 3 sq meter 06/09/2017 11:02 AM [facility] [employer] [facility] Comment: eGFR has not been validated [...] 3 sq meter 06/09/2017 11:[address] [facility] [employer] [facility] ANION GAP 15 8 - 16 mmol/L 06/09/2017 11:02 AM [facility] [employer] [facility] Blood Venipuncture / Unknown 06/09/2017 7:00 AM CDT 06/09/2017 9:34 AM CDT us Shekhar Johnson MD CHEMISTRY ORDERABLES Final R esult [facility] [id number] 5 [facility] [place] [address] * (ABNORMAL) BRAIN NATRIURETIC PEPTIDE, BNP OR PROBNP (06/09/2017 7:00 AM CDT) PROBNP, N TERMINAL 1,295(H) <124 pg/mL 06/09/2017 11:[address] [facility] [employer] [facility] Comment: Reference values for screening purposes based on paleobotanist's recommendation: Patients less than 75 years: <125 [...] Johnson MD CHEMISTRY ORDERABLES Final R esult [facility] [employer] [facility] CLIA# [id number] [address] [place] [address] documented in this encounter Visit Diagnoses Diagnosis Heart failure (CMS/HCC) Heart failure, unspecified documented in this encounter
--- OUTSIDE RECORDS SUMMARY | 2024-10-11 02:09 | XMS_ITS | Encounter Summary ---
Author Organization [employer] Address [address] [place] [address] Care Team Providers Care Sole Rounder Name Role Phone Unavailable Primary Care Provider Unavailabl e Encounter Details Date Type Department Care Team (Late st Contact Info) Description 06/10/2017 Lab Requisition [facility] [employer] Laboratory Services [place] [address] [place] [address] Shekhar Johnson MD [address] [place] [address] Chronic obstructive pulmonary disease (CMS/HCC); [...] - 1.70 ng/dL 06/10/2017 10:30 AM CDT [facility] LABORATORY [facility] Blood Venipuncture / Unknown 06/10/2017 6:29 AM CDT 06/10/2017 8:35 AM CDT Shekhar Johnson MD CHEMISTRY ORDERABLES Final R esult [facility] CLIA# [id number] [address] [place] [address] * HEMOGLOBIN A1C (06/10/2017 6:29 AM CDT) HEMOGLOBIN A1C 5.6 4.0 - 6.0 % 06/10/2017 11:15 AM CDT [facility] [employer] [facility] EST. AVG GLUCOSE, A1C 114 mg/dL 06/10/2017 11:15 AM CDT [facility] [employer] [facility] Blood Venipuncture / Unknown 06/10/2017 6:29 AM CDT 06/10/2017 8:35 AM CDT Shekhar Johnson MD CHEMISTRY ORDERABLES Final R esult [facility] CLIA# [id number] [address] [place] [address] * TSH (06/10/2017 6:29 AM CDT) TSH 1.08 0.27 - 4.20 uIU/mL 06/10/2017 10:30 AM CDT [facility] [employer] [facility] Blood Venipuncture / Unknown 06/10/2017 6:29 AM CDT 06/10/2017 8:35 AM CDT Shekhar Johnson MD CHEMISTRY ORDERABLES Final R esult [facility] [employer] [facility] CLIA# [id number] [address] [place] [address] * (ABNORMAL) CBC WITH DIFFERENTIAL (06/10/2017 6:29 AM CDT) [facility] WBC 4.7 4.0 - 9.8 K/uL 06/10/2017 9:51 AM CDT [facility] RBC 3.26(L) 3.90 - 4.90 M/uL 06/10/2017 9:51 AM CDT [facility] HEMOGLOBIN 8.3(L) 11.8 - 14.8 g/dL 06/10/2017 9:51 AM CDT [facility] HEMATOCRIT 28.4(L) 35.5 - 44.0 % 06/10/2017 9:51 AM CDT [facility] MCV 87.1 82.0 - 99.0 fL 06/10/2017 9:51 AM CDT [facility] MCH 25.5(L) 27.2 - 32.6 pg 06/10/2017 9:51 AM CDT [facility] SERVICES - . [facility] MCHC 29.2(L) 31.5 - 35.5 g/dL 06/10/2017 9:51 AM CDT [facility] RDW 16.3(H) 11.5 - 14.5 % 06/10/2017 9:51 AM CDT [facility] - [facility] RDW-STDEV 51.3(H) 37.1 - 48.7 fL 06/10/2017 9:51 AM CDT [facility] PLATELETS 241 140 - 350 K/uL 06/10/2017 9:51 AM CDT [facility] MPV 11.2 9.3 - 12.4 fL 06/10/2017 9:51 AM CDT [facility] NEUTROPHILS 69 % 06/10/2017 9:51 AM CDT [facility] LYMPHOCYTES 17 % 06/10/2017 9:51 AM CDT [facility] MONOCYTES 8 % 06/10/2017 9:51 AM CDT [facility] EOSINOPHILS 5 % 06/10/2017 9:51 AM CDT [facility] BASOPHILS 0 % 06/10/2017 9:51 AM CDT [facility] LABORATORY SERVICES [facility] IMMATURE GRANULOCYTES 1 % 06/10/2017 9:51 AM CDT [facility]ORY [facility] Comment:IG (Immature Granulo cyte) count includes Metamyelocytes, Myelocytes, and Promyelocytes NEUTROPHIL ABSOLUTE 3.24 1.90 - 7.00 K/uL 06/10/2017 9:51 AM CDT [facility] LABORATORY [facility] LYMPHOCYTE ABSOLUTE 0.77 0.70 - 4.50 K/uL 06/10/2017 9:51 AM CDT [facility]ORY [facility] MONOCYTE ABSOLUTE 0.39 0.10 - 1.30 K/uL 06/10/2017 9:51 AM CDT [facility] LAB[facility]ATORY [facility] - [facility] EOSINOPHIL ABSOLUTE 0.22 0.00 - 0.70 K/uL 06/10/2017 9:51 AM CDT [facility]ATORY SERVICES [facility] BASOPHILS ABSOLUTE 0.02 0.00 - 0.20 K/uL 06/10/2017 9:51 AM CDT [facility] LAB[facility]ATORY SERVICES [facility] IMMATURE GRANULOCYTES ABSOLUTE 0.03 0.00 - 0.03 K/uL 06/10/2017 9:51 AM T [facility]ATORY [facility] Blood Venipuncture / Unknown 06/10/2017 6:29 AM CDT 06/10/2017 8:35 AM CDT us Shekhar Johnson MD HEMATOLOGY ORDERABLES Final Result [facility] [employer] SERVICES - [facility]# [id number] [address] [facility] [place] [address] documented in this encounter Visit Diagnoses Diagnosis Chronic obstructive pulmonary disease (CMS/HCC) Chronic airway obstruction, not elsewhere classified Essential (primary) hypertension Unspecified essential hypertension documented in this encounter
--- OUTSIDE RECORDS SUMMARY | 2024-10-11 02:09 | XMS_ITS | Clinical Summary ---
Author Organization [facility] Address [address] [place] [address] Care Team Providers Care Morals Squad Police Officer Name Role Phone Unavailable Primary Care Provider [...]
--- OUTSIDE RECORDS SUMMARY | 2024-10-11 02:09 | XMS_ITS | Encounter Summary ---
Author Organization [employer] Address [address] [place] [address] Care Team Providers Care Temperature Regulator Name Role Phone Unavailable Primary Care Provider Unavailabl e Encounter Details Date Type Department Care Team (Late st Contact Info) Description 12/20/2016 Lab Requisition [facility] Laboratory Services [place] [address] [place] [address] Shekhar Johnson MD [address] [place] [address] Anemia Social History Tobacco Use [...]
--- OUTSIDE RECORDS SUMMARY | 2024-10-11 02:09 | XMS_ITS | Encounter Summary ---
Author Organization [email or web address] Address [address] [place] [address] Care Team Providers Care Recycling Sorter Name Role Phone Unavailable Primary Care Provider Unavailabl e Encounter Details Date Type Department Care Team (Late st Contact Info) Description 12/06/2016 Lab Requisition [facility] Laboratory Services S [employer] [address] [place] [address] Shekhar Johnson MD [address] [place] [address] Anemia Social History Tobacco Use [...] - 9.8 K/uL 12/06/2016 8:47 AM CDT [facility] RBC 2.93(L) 3.90 - 4.90 M/uL 12/06/2016 8:47 AM CDT [facility] SERVICES [facility] HEMOGLOBIN 8.1(L) 11.8 - 14.8 g/dL 12/06/2016 8:47 AM CDT [facility] SERVICES [facility] HEMATOCRIT 27.2(L) 35.5 - 44.0 % 12/06/2016 8:47 AM CDT [facility] MCV 92.8 82.0 - 99.0 fL 12/06/2016 8:47 AM CDT [employer] LABORATORY SERVICES - [facility] MCH 27.6 27.2 - 32.6 pg 12/06/2016 8:47 AM CDT [employer] LABORATORY SERVICES - [facility] MCHC 29.8(L) 31.5 - 35.5 g/dL 12/06/2016 8:47 AM CDT [employer]ATORY SERVICES - [facility] RDW 15.9(H) 11.5 - 14.5 % 12/06/2016 8:47 AM CDT [employer]ORATORY SERVICES - [facility] RDW-STDEV 52.7(H) 37.1 - 48.7 fL 12/06/2016 8:47 AM CDT [employer]ATORY SERVICES - [facility] PLATELETS 208 140 - 350 K/uL 12/06/2016 8:47 AM CDT [employer] LABORATORY SERVICES - . [facility] MPV 11.0 9.3 - 12.4 fL 12/06/2016 8:47 AM CDT [facility] NEUTROPHILS 60 % 12/06/2016 8:47 AM CDT [facility] LYMPHOCYTES 24 % 12/06/2016 8:47 AM CDT [employer] MONOCYTES 10 % 12/06/2016 8:47 AM CDT [employer] EOSINOPHILS 6 % 12/06/2016 8:47 AM CDT [employer]ATORY [facility] - [facility] BASOPHILS 1 % 12/06/2016 8:47 AM CDT [employer] LABORATORY SERVICES - [facility] IMMATURE GRANULOCYTES 0 % 12/06/2016 8:47 AM CDT [facility]ATORY SERVICES [facility] NEUTROPHIL ABSOLUTE 2.35 1.90 - 7.00 K/uL 12/06/2016 8:47 AM CDT [employer] LYMPHOCYTE ABSOLUTE 0.94 0.70 - 4.50 K/uL 12/06/2016 8:47 AM CDT [employer] MONOCYTE ABSOLUTE 0.37 0.10 - 1.30 K/uL 12/06/2016 8:47 AM CDT [employer] - [facility] EOSINOPHIL ABSOLUTE 0.22 0.00 - 0.70 K/uL 12/06/2016 8:47 AM CDT [facility] BASOPHILS ABSOLUTE 0.02 0.00 - 0.20 K/uL 12/06/2016 8:47 AM CDT [facility] - [facility] IMMATURE GRANULOCYTES ABSOLUTE 0.00 0.00 - 0.03 K/uL 12/06/2016 8:47 AM CDT [facility] Blood Venipuncture / Unknown 12/06/2016 6:10 AM CDT 12/06/2016 8:22 AM CDT Shekhar Johnson MD HEMATOLOGY ORDERABLES Final Result [facility] [id number] [address] [place] [address] documented in this encounter Visit Diagnoses Diagnosis Anemia Anemia, unspecified documented in this encounter
--- OUTSIDE RECORDS SUMMARY | 2024-10-11 02:09 | XMS_ITS | Continuity of Care Document ---
Author Organization [facility] Address [address] [place] [address] [address] [place] [address] Phone Care Team Providers Care Pre Sales Architect Name Role Phone January CASTRO, Lukasz Unavailable Unavaila ble Procedures Procedure Date CATARACT SURG W/IOL, 1 STAGE CATARACT SURG W/IOL, 1 STAGE OFFICE/OUTPATIENT VISIT, [facility] OPHTHALMIC BIOMETRY Advance Directives Directive Yes / No Effective Date File Name No Information Encounters Encounter Description Practice Location Reason(s) For Visit Diagnoses Date Provider Providers Copied on Encounter [facility], [address], [place], [place], [id number], tel:[phone] [facility] No Information 7 January Lal. [address], [address], [place], [place], [address], [place]. tel:[phone] Referring Provider: Lukasz galeana, [address], [place], [address] . tel:[phone] [facility], [address] [place], [place] [address] [address], [place], [place], [address], tel:[phone] [facility] No Information 7 January Lal. [address], [address], [place], [place], [address], [place]. tel:[phone] Referring Provider: Lukasz galeana, [address], [place], [address] . tel:[phone] OFFICE/OUTPA TIENT VISIT, NEW [facility], [address], [place], [place], [address], tel:[phone] [facility] No Information 7 January Lal. [address], [address], [place], [place], [address], . tel:[phone] Referring Provider: Lukasz galeana, [address], [place], [address] . tel:[phone] Family History Family Member Type Diagnosis Age At Onset No Information Payers Payer name Insurance type Covered libertarian ID Authoriza tion(s) [employer] [facility] CI [id number] Social History Type Description Quantity Date Captured [...]
--- OUTSIDE RECORDS SUMMARY | 2024-10-11 02:09 | XMS_ITS | Encounter Summary ---
Author Organization [email or web address] Address [address] [place] [address] Care Team Providers Care 21 Dealer Name Role Phone Unavailable Primary Care Provider Unavailabl e Encounter Details Date Type Department Care Team (Late st Contact Info) Description 06/25/2017 Lab Requisition [facility] Laboratory Services [place] [address] [place] [address] Shekhar Johnson MD [address] [place] [address] Encounter for general adult medical [...]
--- OUTSIDE RECORDS SUMMARY | 2024-10-11 02:09 | XMS_ITS | Encounter Summary ---
Author Organization [facility] Address [address] [place] [address] Care Team Providers Care Moss Picker Name Role Phone Unavailable Primary Care Provider Unavailabl e Encounter Details Date Type Department Care Team (Late st Contact Info) Description 12/03/2016 Lab Requisition [facility] [place] [address] [place] [address] Shekhar Johnson MD [address] [place] [address] Essential (primary) hypertension Social History [...] 8:40 AM CDT 12/03/2016 3:15 PM CDT [facility] - 12/03/2016 5:22 PM CDT TOTAL CHOLESTEROL [...] Johnson MD CHEMISTRY ORDERABLES Final R esult [facility]# [id number] 5 SP[facility] [facility] [place] [address] * T4 FREE (12/03/2016 8:40 AM CDT) T4 FREE 1.36 0.90 - 1.70 ng/dL 12/03/2016 7:04 PM CDT [facility] Blood Venipuncture / Unknown 12/03/2016 8:40 AM CDT 12/03/2016 3:15 PM CDT Shekhar Johnson MD CHEMISTRY ORDERABLES Final R esult [facility] CLIA# [id number] [address] [place] [address] * TSH (12/03/2016 8:40 AM CDT) Pathologist [facility] TSH 1.07 0.27 - 4.20 uIU/mL 12/03/2016 7:04 PM CDT [facility] Blood Venipuncture / Unknown 12/03/2016 8:40 AM CDT 12/03/2016 3:15 PM CDT Shekhar Johnson MD CHEMISTRY ORDERABLES Final R esult Performing Organization Address City/[facility]/ZIP Co de Phone Number [facility]# [id number] [address] [place] [address] * HEMOGLOBIN A1C (12/03/2016 8:40 AM CDT) [facility] HEMOGLOBIN A1C 5.7 4.0 - 6.0 % 12/03/2016 4:27 PM CDT [facility] Comment:Note: Effective as o f 04/21/2015 a new methodology, Turbidimetric inhibition immunoassay (TINIA),has been implemented. EST. AVG GLUCOSE, A1C 117 mg/dL 12/03/2016 4:27 PM CDT [facility] Blood Venipuncture / Unknown 12/03/2016 8:40 AM CDT 12/03/2016 3:34 PM CDT Shekhar Johnson MD CHEMISTRY ORDERABLES Final R esult [facility] CLIA# [id number] [address] [place] [address] * (ABNORMAL) COMPREHENSIVE METABOLIC PANEL (12/03/2016 8:40 AM CDT) SODIUM 150(H) 136 - 145 mmol/L 12/03/2016 5:39 PM CDT [facility] POTASSIUM 4.2 3.5 - 5.0 mmol/L 12/03/2016 5:39 PM CDT [facility] CHLORIDE 102 98 - 107 mmol/L 12/03/2016 5:39 PM CDT [facility] CO2 25 22 - 29 mmol/L 12/03/2016 5:39 PM CDT [facility] CALCIUM 9.3 8.6 - 10.2 mg/dL 12/03/2016 5:39 PM CDT [facility] BUN 15 8 - 23 mg/dL 12/03/2016 5:39 PM CDT [facility] CREATININE 1.21(H) 0.51 - 0.95 mg/dL 12/03/2016 5:39 PM CDT [facility] GLUCOSE 105(H) 74 - 99 mg/dL 12/03/2016 5:39 PM CDT [facility] TOTAL PROTEIN 7.9 6.7 - 8.6 g/dL 12/03/2016 5:39 PM CDT [facility] ALBUMIN 3.5 3.5 - 5.2 g/dL 12/03/2016 5:39 PM CDT [facility] BILIRUBIN TOTAL 0.3 0.2 - 1.1 mg/dL 12/03/2016 5:39 PM CDT [facility] ALKALINE PHOSPHATASE 74 35 - 104 U/L 12/03/2016 5:39 PM CDT [facility] AST 25 <33 U/L 12/03/2016 5:39 PM CDT [facility] ALT 10 <34 U/L 12/03/2016 5:39 PM CDT [facility] GFR 44(L) >=60 mL/min/1.7 3 sq meter 12/03/2016 5:39 PM CDT [facility] Comment: [...] 3 sq meter 12/03/2016 5:39 PM T [facility] ANION GAP 23(H) 8 - 16 mmol/L 12/03/2016 5:39 PM [facility] Blood Venipuncture / Unknown 12/03/2016 8:40 AM CDT 12/03/2016 3:15 PM CDT Narrative [facility] - 12/03/2016 5:39 PM CDT Samples containing indocyanine green cause interferences on Total and/or Direct Bilirubin and must not be measured. us Shekhar Johnson MD CHEMISTRY ORDERABLES Final R esult [facility]# [id number] 5 [facility] [place] [address] * (ABNORMAL) CBC WITH DIFFERENTIAL (12/03/2016 8:40 AM CDT) [facility] WBC 4.9 4.0 - 9.8 K/uL 12/03/2016 3:02 PM [facility] RBC 3.15(L) 3.90 - 4.90 M/uL 12/03/2016 3:02 PM [facility] HEMOGLOBIN 8.7(L) 11.8 - 14.8 g/dL 12/03/2016 3:02 PM [facility] HEMATOCRIT 30.0(L) 35.5 - 44.0 % 12/03/2016 3:02 PM CDT [facility] MCV 95.2 82.0 - 99.0 fL 12/03/2016 3:02 PM CDT [facility] MCH 27.6 27.2 - 32.6 pg 12/03/2016 3:02 PM CDT [facility] - [facility] MCHC 29.0(L) 31.5 - 35.5 g/dL 12/03/2016 3:02 PM CDT [facility] - [facility] RDW 15.8(H) 11.5 - 14.5 % 12/03/2016 3:02 PM CDT [facility] RDW-STDEV 54.2(H) 37.1 - 48.7 fL 12/03/2016 3:02 PM CDT [facility] PLATELETS 216 140 - 350 K/uL 12/03/2016 3:02 PM CDT [facility] - [facility] MPV 11.7 9.3 - 12.4 fL 12/03/2016 3:02 PM CDT [facility] NEUTROPHILS 72 % 12/03/2016 3:02 PM CDT [facility] LYMPHOCYTES 17 % 12/03/2016 3:02 PM CDT [facility] MONOCYTES 7 % 12/03/2016 3:02 PM CDT [facility] EOSINOPHILS 4 % 12/03/2016 3:02 PM CDT [facility] BASOPHILS 0 % 12/03/2016 3:02 PM CDT [facility] IMMATURE GRANULOCYTES 0 % 12/03/2016 3:02 PM CDT [facility] - . [facility] NEUTROPHIL ABSOLUTE 3.51 1.90 - 7.00 K/uL 12/03/2016 3:02 PM CDT [facility] LYMPHOCYTE ABSOLUTE 0.84 0.70 - 4.50 K/uL 12/03/2016 3:02 PM CDT [facility] - . [facility] MONOCYTE ABSOLUTE 0.33 0.10 - 1.30 K/uL 12/03/2016 3:02 PM CDT [facility] EOSINOPHIL ABSOLUTE 0.17 0.00 - 0.70 K/uL 12/03/2016 3:02 PM CDT [facility] BASOPHILS ABSOLUTE 0.02 0.00 - 0.20 K/uL 12/03/2016 3:02 PM CDT [facility] - [facility] IMMATURE GRANULOCYTES ABSOLUTE 0.02 0.00 - 0.03 K/uL 12/03/2016 3:02 PM CDT [facility] Blood Venipuncture / Unknown 12/03/2016 8:40 AM CDT 12/03/2016 3:00 PM CDT us Shekhar Johnson MD HEMATOLOGY ORDERABLES Final Result [facility]# [id number] [address] [place] [address] documented in this encounter Visit Diagnoses Diagnosis Essential (primary) hypertension Unspecified essential hypertension documented in this encounter
--- NOTE | 2024-10-11 08:29 | P.PNAN_ITS ---
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 Patient Data Age: 74 Gender: F Height: 1.6 m Weight: 68.5 kg Allergies Allergy/AdvReac Type Severity Reaction Status Date / Time levofloxacin AdvReac Intermediate Hallucinati Verified 10/11/24 11:14 ng prednisone AdvReac Mild Jittery Verified 10/11/24 11:14 atorvastatin AdvReac Unknown Muscle Verified 10/11/24 11:14 Spasms duloxetine AdvReac Unknown Diarrhea Verified 10/11/24 11:14 Penicillins AdvReac Unknown Itching Verified 10/11/24 11:14 rosuvastatin AdvReac Unknown Muscle Verified 10/11/24 11:14 Spasms all steriods Allergy Unknown aggression Uncoded 10/11/24 11:14 Home Medications ?Medication ?Instructions ?Recorded ?Confirmed ?Type ntmmotp-nccifhbejqohb-pazsghak 250 1 tablet PO Q4-6H PRN Pain 06/05/22 10/11/24 History mg-250 mg-65 mg tablet (Excedrin Extra Strength) dicyclomine 20 mg tablet 20 mg PO TID #270 tabs 07/01/23 10/11/24 Rx fluticasone propionate 50 2 spray intranasal BID #16 grams 09/10/23 10/11/24 Rx mcg/actuation nasal spray,suspension potassium chloride 10 mEq 10 meq PO DAILY #100 tabs 02/24/24 10/11/24 Rx tablet,extended release furosemide 40 mg tablet See Rx Instructions .Route 02/25/24 10/11/24 Rx .COMPLEX #100 tabs metoprolol tartrate 100 mg tablet 100 mg PO BID #200 tabs 04/23/24 10/11/24 Rx diphenoxylate-atropine 2.5 See Rx Instructions PO QID PRN 06/22/24 10/11/24 Rx mg-0.025 mg tablet diarrhea #60 tabs nortriptyline 50 mg capsule 50 mg PO QHS #90 caps 06/22/24 10/11/24 Rx alprazolam 1 mg tablet 1 mg PO QID PRN Anxiety #360 tabs 08/10/24 10/11/24 Rx trazodone 100 mg tablet 200 mg (2 x 100 mg) PO QHS #180 08/10/24 10/11/24 Rx tabs lisinopril 40 mg tablet 40 mg PO DAILY #100 tabs 08/16/24 10/11/24 Rx tramadol 50 mg tablet 50 mg PO QID PRN pain #50 tabs 08/24/24 10/11/24 Rx omeprazole 40 mg capsule,delayed 40 mg PO BID #60 caps 09/15/24 10/11/24 Rx release cholestyramine 4 gram oral powder 4 g PO BID #60 ea 10/04/24 Rx for suspension in a packet (Cholestyramine Light) Patient hx anesthesia problems: none Family hx anesthesia problems: none Results Review: All pre-operative results and documents have been reviewed as part of the pre- operative evaluation. [facility] Past Medical History Medical History (Updated 10/11/24 @ 08:30 by Héctor Carlos DO) Pulmonary embolism Hyperlipidemia Chronic kidney disease, stage 3a Obstructive sleep apnea (adult) (pediatric) Hypokalemia Normal colonoscopy 04/17 HTN (hypertension) GERD (gastroesophageal reflux disease) Arthritis Anxiety Migraines Depression COPD (chronic obstructive pulmonary disease) Surgical History Surgical History Status post colostomy takedown History of colostomy (10/2016) History of colon resection (10/2016) Perforated sigmoid diverticulitis History of back surgery Hx of cholecystectomy 1995 Family History Family History Mother Heart disease Hypertension Acute myocardial infarction Diabetes mellitus Father Acute myocardial infarction Heart disease Sibling Breast cancer Diabetes mellitus Social History Social History Smoking status: Former smoker Tobacco type: cigarettes Second hand tobacco smoke exposure: No Smoking end date: 03/31/14 Alcohol intake: never Substance use: never Substance use type: does not use Living arrangements: alone Occupation/Education: retired Gender identity (if verbalized by the patient): Female Sexual Orientation (if Verbalized by the Patient): Straight or Heterosexual Spiritual care concerns: No Agree to blood products: Yes Anes - Eval Final PreProcedure Day of Procedure 10/11/24 08:29 Patient weight: overweight Heart: regular rate and rhythm Lungs: clear to auscultation Airway: Mallampati scale class II Neurological: alert and oriented Last oral intake: >/= 8 hours ASA classification: III Emergent: no Anesthetic plan: proceed Anesthesia type and monitoring: general ETT and standard monitoring Results Review: All pre-operative results and documents have been reviewed as part of the pre- operative evaluation. Informed Consent: The patient's anesthetic plan and its attendant risks and benefits were discussed with the patient/family/POA. Questions were solicited and answers provided to the satisfaction of the patient/family/POA.
[2024-10-11] MEDS: LACTATED RINGERS 1,000 ML 150 ML IV CONT ×2 (11:29→13:11)
--- NOTE | 2024-10-11 11:54 | WPDHPUPDATE1 ---
History and Physical Update Update Date/Time: 10/11/24 11:54 History and Physical has been reviewed, including an updated exam of the patient. There are NO changes in the patient's condition. Risks, benefits, and alternatives have been discussed and questions answered. Patient agrees to proceed with procedure.
[2024-10-11] MEDS: INDOMETHACIN 50 MG SUPP.RECT RECTAL (12:03)
== END 2024-10-11 14:25 | disposition home or self-care (01) ==
PROVIDERS: PCP Family Medicine Adolescent Medicine; Referring Provider Nurse Practitioner; Visit Provider Internal Medicine Gastroenterology
PROC: (CPT 43260; principal; 2024-10-11 12:30)
DX: K80.50 Calculus of bile duct without cholangitis or cholecystitis without obstruction (principal); K83.8 Other specified diseases of biliary tract; R79.89 Other specified abnormal findings of blood chemistry; E78.5 Hyperlipidemia, unspecified; G47.33 Obstructive sleep apnea (adult) (pediatric); I12.9 Hypertensive chronic kidney disease with stage 1 through stage 4 chronic kidney disease, or unspecified chronic kidney disease; N18.31 Chronic kidney disease, stage 3a; K21.9 Gastro-esophageal reflux disease without esophagitis; J44.9 Chronic obstructive pulmonary disease, unspecified; K58.0 Irritable bowel syndrome with diarrhea; E87.6 Hypokalemia; F41.9 Anxiety disorder, unspecified; F32.A Depression, unspecified; M19.90 Unspecified osteoarthritis, unspecified site; Z79.82 Long term (current) use of aspirin; Z79.891 Long term (current) use of opiate analgesic; Z98.890 Other specified postprocedural states; Z90.49 Acquired absence of other specified parts of digestive tract; Z98.1 Arthrodesis status; Z93.3 Colostomy status; Z87.891 Personal history of nicotine dependence; Z86.711 Personal history of pulmonary embolism; Z80.3 Family history of malignant neoplasm of breast; Z82.49 Family history of ischemic heart disease and other diseases of the circulatory system
CPT/HCPCS: 43265; 43273; 74329; A9270; J1100; J2003; J2405; J2704; J7120

== ENCOUNTER 2024-10-18 14:18 | Outpatient (CLI) | payer MEDICARE, SELFPAY ==
--- OUTSIDE RECORDS SUMMARY | 2024-10-18 14:22 | XMS_ITS | Encounter Summary ---
Author Organization [employer] Address [address] [place] [address] Care Team Providers Care Cupola Melter Helper Name Role Phone Unavailable Primary Care Provider Unavailabl e Encounter Details Date Type Department Care Team (Late st Contact Info) Description 12/12/2016 Lab Requisition [email or web address] [place] [address] [place] [address] Shekhar Johnson MD [address] [place] [address] Chronic obstructive pulmonary disease (CMS/HCC); [...] - 145 mmol/L 12/12/2016 12:13 PM CDT [facility] POTASSIUM 3.4(L) 3.5 - 5.0 mmol/L 12/12/2016 12:13 PM CDT [facility] CHLORIDE 96(L) 98 - 107 mmol/L 12/12/2016 12:13 PM [facility] CO2 28 22 - 29 mmol/L 12/12/2016 12:13 PM [facility] CALCIUM 8.7 8.6 - 10.2 mg/dL 12/12/2016 12:13 PM [facility] BUN 13 8 - 23 mg/dL 12/12/2016 12:13 PM [facility] CREATININE 1.08(H) 0.51 - 0.95 mg/dL 12/12/2016 12:13 PM [facility] GLUCOSE 151(H) 74 - 99 mg/dL 12/12/2016 12:13 PM [facility] TOTAL PROTEIN 7.7 6.7 - 8.6 g/dL 12/12/2016 12:13 PM [facility] ALBUMIN 3.5 3.5 - 5.2 g/dL 12/12/2016 12:13 PM [facility] BILIRUBIN TOTAL 0.2 0.2 - 1.1 mg/dL 12/12/2016 12:13 PM [facility] ALKALINE PHOSPHATASE 98 35 - 104 U/L 12/12/2016 12:13 PM [facility] AST 12 <33 U/L 12/12/2016 12:13 PM [facility] ALT <5 <34 U/L 12/12/2016 12:13 PM [facility] GFR 51(L) >=60 mL/min/1.7 3 sq meter 12/12/2016 12:13 PM [facility] Comment: eGFR [...] 3 sq meter 12/12/2016 12:13 PM T [facility] SERVICES - [facility] ANION GAP 16 8 - 16 mmol/L 12/12/2016 12:13 PM [facility] - [facility] Blood Venipuncture / Unknown 12/12/2016 7:25 AM CDT 12/12/2016 10:43 AM CDT [facility]ATORY SERVICES - [facility] - 12/12/2016 12:13 PM CDT Samples containing indocyanine green cause interferences on Total and/or Direct Bilirubin and must not be measured. Shekhar Johnson MD CHEMISTRY ORDERABLES Final R esult [facility] [employer] SERVICES [facility]# [id number] 5 [facility] [place] [address] * (ABNORMAL) CBC WITH DIFFERENTIAL (12/12/2016 7:25 AM CDT) WBC 5.5 4.0 - 9.8 K/uL 12/12/2016 11:31 AM [facility] SERVICES [facility] RBC 3.04(L) 3.90 - 4.90 M/uL 12/12/2016 11:31 AM [facility] SERVICES [facility] HEMOGLOBIN 8.1(L) 11.8 - 14.8 g/dL 12/12/2016 11:31 AM [facility]ORY SERVICES [facility] HEMATOCRIT 27.5(L) 35.5 - 44.0 % 12/12/2016 11:31 AM [facility] - [facility] MCV 90.5 82.0 - 99.0 fL 12/12/2016 11:31 AM [facility] - [facility] MCH 26.6(L) 27.2 - 32.6 pg 12/12/2016 11:31 AM [facility]ATORY SERVICES [facility] MCHC 29.5(L) 31.5 - 35.5 g/dL 12/12/2016 11:31 AM [employer] [facility] RDW 16.1(H) 11.5 - 14.5 % 12/12/2016 11:31 AM CDT [facility] RDW-STDEV 53.2(H) 37.1 - 48.7 fL 12/12/2016 11:31 AM [facility] PLATELETS 226 140 - 350 K/uL 12/12/2016 11:31 AM [employer] [facility] MPV 11.1 9.3 - 12.4 fL 12/12/2016 11:31 AM [employer] [facility] NEUTROPHILS 70 % 12/12/2016 11:31 AM [employer] [facility] LYMPHOCYTES 19 % 12/12/2016 11:31 AM [employer] [facility] MONOCYTES 8 % 12/12/2016 11:31 AM [facility] EOSINOPHILS 2 % 12/12/2016 11:31 AM [facility] BASOPHILS 0 % 12/12/2016 11:31 AM [facility] IMMATURE GRANULOCYTES 0 % 12/12/2016 11:31 AM [facility] NEUTROPHIL ABSOLUTE 3.84 1.90 - 7.00 K/uL 12/12/2016 11:31 AM [facility] LYMPHOCYTE ABSOLUTE 1.06 0.70 - 4.50 K/uL 12/12/2016 11:31 AM [facility] MONOCYTE ABSOLUTE 0.45 0.10 - 1.30 K/uL 12/12/2016 11:31 AM [facility] EOSINOPHIL ABSOLUTE 0.09 0.00 - 0.70 K/uL 12/12/2016 11:31 AM [facility] BASOPHILS ABSOLUTE 0.02 0.00 - 0.20 K/uL 12/12/2016 11:31 AM [facility] IMMATURE GRANULOCYTES ABSOLUTE 0.02 0.00 - 0.03 K/uL 12/12/2016 11:31 AM [facility] Blood Venipuncture / Unknown 12/12/2016 7:25 AM CDT 12/12/2016 10:45 AM CDT Shekhar Johnson MD HEMATOLOGY ORDERABLES Final Result Performing Organization Address City/State/[facility] Co de Phone Number [facility] LAB[facility]ATORY [facility]# [id number] [address] [facility] [place] [address] documented in this encounter Visit Diagnoses Diagnosis Chronic obstructive pulmonary disease (CMS/HCC) Chronic airway obstruction, not elsewhere classified Essential (primary) hypertension Unspecified essential hypertension 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
--- OUTSIDE RECORDS SUMMARY | 2024-10-18 14:22 | XMS_ITS ---
Author Name Auto Generated, Auto Generated Organization [facility] ice Address [address] [place] [address] Phone [phone] Care Team Providers Care Management Instructor Name Role Phone Shekhar Johnson Unavailable Nilo Rincon Unavailable [phone] Functional Status Mental Status Allergies and Intolerances Medications Problems Reason for Referral Past Medical History
--- OUTSIDE RECORDS SUMMARY | 2024-10-18 14:22 | XMS_ITS ---
Author Name Auto Generated, Auto Generated Organization [facility] ices Address [address] [place] [address] Phone [phone] Care Team Providers Care Marketing Production Specialist Name Role Phone Waldodenisha Shekhar Morley Unavailable [...] Xanax 0.5 mg tablet 0.5mg TABLET Oral [place] N 3 Times Daily Anxiety FriJun 09 15:00:00 EDT 2017Jun 09 16:49:00 EDT 2017 Xanax 0.5 mg tablet 0.5mg TABLET Oral [place] N 3 Times Daily Anxiety FriJun 09 [...] Xanax 0.5 mg tablet 0.5mg TABLET Oral [place] N 3 Times Daily Anxiety FriJun 13 [...] Daily Nina Sep 14 20:00:00 EDT 2016 [facility] Sep 18 01:00:00 EDT 2016 metoprolol tartrate 75 mg tablet 1 tablet TABLET Oral 2 Times Daily Wed Sep 13 18:00:00 EDT 2016 [facility] Sep 18 01:00:00 EDT 2016 metFORMIN 500 mg tablet 2 tabs TABLET Or al 1 Time Daily for 7 Days [facility] Sep 07:00:00 EDT 2016 [facility] Sep 14 15:42:00 EDT 2016 metFORMIN 500 mg tablet 3 tabs TABLET Or al 1 Time Daily for 7 Days [facility] 07:00:00 EDT 2016 Nina Sep 14 15:42:00 EDT 2016 metFORMIN 500 mg tablet 4 tabs TABLET Or al 1 Time Daily [facility] Dec 31 07:00:00 EDT 2016 Nina Sep 14 15:42:00 EDT 2016 metFORMIN ER 500 mg tablet,extended release 24hr 500mg TABLET, EXTENDED RELEASE 24 HR Oral 1 Time Daily for 7 Days [facility] Sep 07:00:00 EDT 2016 Nina Sep 14 17:36:00 EDT 2016 metFORMIN ER 1,000 mg tablet,extended release 24hr 1,000mg TABLET, EXTENDED RELEASE 24 HR Oral 1 Time Daily for 7 Days [facility] Sep 19 07:00:00 EDT 2016 [facility] Sep 12 14:34:00 EDT 2016 metFORMIN ER 1,000 mg tablet,extended release 24hr 1,500mg TABLET, EXTENDED RELEASE 24 HR Oral 1 Time Daily for 7 Days [facility] Sep 07:00:00 EDT 2016Dec 10 14:35:00 EDT [...] oxyCODONE 5 mg tablet 5mg TABLET Oral [place] N Every 6 Hours Pain FriDec 02 [...] 2016 * End Date: * Text: * residential (current) use of anticoagulants* Code: * Start [...] 2016 * End Date: * Text: * residential (current) use of oral hypoglycemic drugs* Code: [...] * Text: * Atherosclerotic heart disease of [place] coronary artery without angina pectoris* Code: * [...] 2017 * End Date: * Text: * 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
--- OUTSIDE RECORDS SUMMARY | 2024-10-18 14:22 | XMS_ITS | Clinical Summary ---
Author Organization [facility] Address [address] [place] [address] Care Team Providers Care Studio Technician Video Operator Name Role Phone Nilo Rincon MD Primary Care Provider + Source Comments [facility],non-owned Affiliates and Associated Physician Practices is amultiple site organization consisting of ambulatory clinics and hospital sitesin [place], [place]. This disclosure is being madepursuant to the Care Everywhere program and may not contain all information available regarding this patient. Last updated 17.[facility] Allergies Active Allergy Reactions Criticality Noted Date [...] (Wheezing, Shortness of Breath). 7 Active Tiotropium Peralta-Olodate rol (STIOLTO RESPIMAT) 2.5-2.5 MCG/ACT Inhale 2 [...] on file Legal Sex Female 5:11 PM HAND STONE POLISHER Gender Identity Not on file Sexual Orientation [...] PANEL (CALCIUM TOTAL) Routine 06/06/2017 6:02 AM HAND STONE POLISHER HEPATITIS SCREEN ACUTE Routine 06/01/2017 5:45 PM HAND STONE POLISHER from Last 3 Months or Most Recently Relevant to Health Maintenance Results * (ABNORMAL) BASIC METABOLIC PANEL (CALCIUM TOTAL) (06/06/2017 6:02 AM HAND STONE POLISHER) BUN 13 7 - 26 mg/dL [facility] Creatinine 0.8 0.6 - 1.2 mg/dL [facility] Comment:Confirmed by repeat analysis. Sodium 141 136 - 145 mmol/L [facility] Potassium 3.5 3.5 - 4.5 mmol/L [facility] Chloride 105 98 - 107 mmol/L [facility] CO2 23 22 - 29 mmol/L [facility] Glucose 82 70 - 115 mg/dL [facility] Calcium 8.3(L) 8.4 - 10.2 mg/dL [facility] Anion Gap 17 8 - 18 [facility] BUN/Creatinine Ratio 16 7 - 23 [facility] Osmolality Calculated 291 270 - 300 mOsm/kg [facility] eGFR >60 >60 mL/min/1.7 3 m2 [facility] Blood specimen (specimen) BLOOD SPECIMEN / Unknown 06/06/2017 6:02 AM HAND STONE POLISHER 06/06/2017 6:11 AM HAND STONE POLISHER us Lizbeth Bell MD LAB - CHEMISTRY ORDERABLES Final Result Performing Organization Address [facility] Co de Phone Number [address] [phone] * HEPATITIS SCREEN ACUTE (06/01/2017 5:45 PM HAND STONE POLISHER) Hepatitis A Virus Antibody IgM Non-react [facility] Hepatitis B Virus Surface Antigen Non-react [facility] Hepatitis B Core Virus Antibody IgM Non-react [facility] Hepatitis C Antibody Non-react [facility] Comment: Hepatitis C Antibody [...] BLOOD SPECIMEN / Unknown 06/01/2017 5:45 PM HAND STONE POLISHER 06/01/2017 5:59 PM HAND STONE POLISHER us Wilbur Landrum MD LAB - CHEMISTRY ORDERABLES Fin al Result Performing Organization Address City/State/[facility] [place] [address], [facility] [phone] from Last 3 Months or Most Recently Relevant to Health [place] [address] [facility] [employer] MEDICARE ADV SELF PAY NO INSURANCE Member Subscriber Plan / Payer (Ef fective for All Dates) Name:Claudia Elizondo Celina Member ID:Not on file Relation to Subscriber:Not on file Name:MIKHAILCLAUDIA Subscriber ID:Not on file (Home) Address: [address] [place] [id number] Payer ID:Not on file Group ID:Not on file Type:Self Pay Address: [place], [place] Care Teams Studio Technician Video Operator Relationship Specialty Start Date End Date Nilo Rincon MD [address] [address] PCP - General 11/08/16
--- OUTSIDE RECORDS SUMMARY | 2024-10-18 14:22 | XMS_ITS | Encounter Summary ---
Author Organization [facility] Address [address] [place] [address] Care Team Providers Care Poster Name Role Phone Unavailable Primary Care Provider Unavailabl e Encounter Details Date Type Department Care Team (Late st Contact Info) Description 11/30/2016 Lab Requisition [facility] Laboratory Services S [employer] [address] [place] [address] Shekhar Johnson MD [address] [place] [address] Essential (primary) hypertension Social History [...] WITH DIFFERENTIAL (11/30/2016 1:29 PM CDT) Pathologist [facility] WBC 5.0 4.0 - 9.8 K/uL 11/30/2016 2:53 PM CDT [facility] RBC 3.00(L) 3.90 - 4.90 M/uL 11/30/2016 2:53 PM CDT [facility] HEMOGLOBIN 8.3(L) 11.8 - 14.8 g/dL 11/30/2016 2:53 PM CDT [facility] HEMATOCRIT 27.6(L) 35.5 - 44.0 % 11/30/2016 2:53 PM CDT [facility] MCV 92.0 82.0 - 99.0 fL 11/30/2016 2:53 PM CDT [facility] MCH 27.7 27.2 - 32.6 pg 11/30/2016 2:53 PM CDT [facility] MCHC 30.1(L) 31.5 - 35.5 g/dL 11/30/2016 2:53 PM CDT [facility] RDW 14.9(H) 11.5 - 14.5 % 11/30/2016 2:53 PM CDT [facility] RDW-STDEV 49.8(H) 37.1 - 48.7 fL 11/30/2016 2:53 PM CDT [facility] PLATELETS 201 140 - 350 K/uL 11/30/2016 2:53 PM CDT [facility] MPV 11.4 9.3 - 12.4 fL [...] PM CDT [facility] . [facility] IMMATURE GRANULOCYTES 0 % 11/30/2016 2:53 PM CDT [facility] NEUTROPHIL ABSOLUTE 3.85 1.90 - 7.00 K/uL 11/30/2016 2:53 PM CDT [facility] LYMPHOCYTE ABSOLUTE 0.65(L) 0.70 - 4.50 K/uL 11/30/2016 2:53 PM CDT [facility] MONOCYTE ABSOLUTE 0.29 0.10 - 1.30 K/uL 11/30/2016 2:53 PM CDT [facility] EOSINOPHIL ABSOLUTE 0.17 0.00 - 0.70 K/uL 11/30/2016 2:53 PM CDT [facility] BASOPHILS ABSOLUTE 0.03 0.00 - 0.20 K/uL 11/30/2016 2:53 PM CDT [facility] - [facility] IMMATURE GRANULOCYTES ABSOLUTE 0.02 0.00 - 0.03 K/uL 11/30/2016 2:53 PM CDT [facility] - [facility] Blood Venipuncture / Unknown 11/30/2016 1:29 PM CDT 11/30/2016 2:39 PM CDT us Shekhar Johnson MD HEMATOLOGY ORDERABLES Final Result [facility] - [facility]# [id number] [address] [place] [address] documented in this encounter Visit Diagnoses Diagnosis Essential (primary) hypertension Unspecified essential hypertension documented in this encounter
--- OUTSIDE RECORDS SUMMARY | 2024-10-18 14:22 | XMS_ITS | Encounter Summary ---
Author Organization [employer] Address [address] [place] [address] Care Team Providers Care Pricing Actuary Name Role Phone Unavailable Primary Care Provider Unavailabl e Encounter Details Date Type Department Care Team (Late st Contact Info) Description 12/20/2016 Lab Requisition [facility] General Laboratory Services [place] [address] [place] [address] Shekhar Johnson MD [address] [place] [address] Anemia Social History Tobacco Use [...]
--- OUTSIDE RECORDS SUMMARY | 2024-10-18 14:22 | XMS_ITS | Clinical Summary ---
Author Organization [facility] Address [address] [place] [phone] Phone Care Team Providers Care Grinder Hardboard Name Role Phone Unavailable Primary Care Provider [...]
--- OUTSIDE RECORDS SUMMARY | 2024-10-18 14:22 | XMS_ITS | Encounter Summary ---
Author Organization [employer] Address [address] [place] [address] Care Team Providers Care Stamps Or Coins Salesperson Name Role Phone Unavailable Primary Care Provider Unavailabl e Encounter Details Date Type Department Care Team (Late st Contact Info) Description 12/03/2016 Lab Requisition [facility] General Laboratory Services [place] [address] [place] [address] Shekhar Johnson MD [address] [place] [address] Essential (primary) hypertension Social History [...] 162 <200 mg/dL 12/03/2016 5:22 PM T [facility] TRIGLYCERIDE 274(H) <150 mg/dL 12/03/2016 5:22 PM CDT [facility] HDL 40 40 - 59 mg/dL 12/03/2016 5:22 PM T [facility] LDL CALCULATED 67 <100 mg/dL 12/03/2016 5:22 PM T [facility] NON-HDL CHOLESTEROL 122 <130 mg/dL 12/03/2016 5:22 PM [address] [facility] Blood Venipuncture / Unknown 12/03/2016 8:40 AM CDT 12/03/2016 3:15 PM CDT [facility] - 12/03/2016 5:22 PM CDT TOTAL CHOLESTEROL [...] ORDERABLES Final R esult [facility]# [id number] [address] [facility] [place] [address] [address] * T4 FREE (12/03/2016 8:40 AM CDT) T4 FREE 1.36 0.90 - 1.70 ng/dL 12/03/2016 7:04 PM CD[address] [facility] Blood Venipuncture / Unknown 12/03/2016 8:40 AM CDT 12/03/2016 3:15 PM CDT Shekhar Johnson MD CHEMISTRY ORDERABLES Final R esult [facility] CLIA# [id number] [address] [place] [address] * TSH (12/03/2016 8:40 AM CDT) Pathologist [facility] TSH 1.07 0.27 - 4.20 uIU/mL 12/03/2016 7:04 PM CDT [facility] Blood Venipuncture / Unknown 12/03/2016 8:40 AM CDT 12/03/2016 3:15 PM CDT Shekhra Johnson MD CHEMISTRY ORDERABLES Final R esult Performing Organization Address City/[facility]/ZIP Co de Phone Number [facility]# [id number] [address] [place] [address] * HEMOGLOBIN A1C (12/03/2016 8:40 AM CDT) [facility] HEMOGLOBIN A1C 5.7 4.0 - 6.0 % 12/03/2016 4:27 PM CDT [facility] [employer] [facility] Comment:Note: Effective as o f 04/21/2015 a new methodology, Turbidimetric inhibition immunoassay (TINIA),has been implemented. EST. AVG GLUCOSE, A1C 117 mg/dL 12/03/2016 4:27 PM CDT [facility] [employer] [facility] Blood Venipuncture / Unknown 12/03/2016 8:40 AM CDT 12/03/2016 3:34 PM CDT Shekhar Johnson MD CHEMISTRY ORDERABLES Final R esult [facility] [employer] [facility] CLIA# [id number] [address] [place] [address] * (ABNORMAL) COMPREHENSIVE METABOLIC PANEL (12/03/2016 8:40 AM CDT) SODIUM 150(H) 136 - 145 mmol/L 12/03/2016 5:39 PM CDT [employer] [facility]AT[facility] - [facility] POTASSIUM 4.2 3.5 - 5.0 mmol/L 12/03/2016 5:39 PM CDT [employer] [facility] - [facility] CHLORIDE 102 98 - 107 mmol/L 12/03/2016 5:39 PM CDT [employer] [facility] - [facility] CO2 25 22 - 29 mmol/L 12/03/2016 5:39 PM CDT [employer] [facility] - [facility] CALCIUM 9.3 8.6 - 10.2 mg/dL 12/03/2016 5:39 PM CDT [employer] [facility] - [facility] BUN 15 8 - 23 mg/dL 12/03/2016 5:39 PM CDT [employer] [facility] - [facility] CREATININE 1.21(H) 0.51 - 0.95 mg/dL 12/03/2016 5:39 PM CDT [employer] [facility] - [facility] GLUCOSE 105(H) 74 - 99 mg/dL 12/03/2016 5:39 PM CDT [employer] [facility] - [facility] TOTAL PROTEIN 7.9 6.7 - 8.6 g/dL 12/03/2016 5:39 PM CDT [employer] [facility] - [facility] ALBUMIN 3.5 3.5 - 5.2 g/dL 12/03/2016 5:39 PM CDT [employer] [facility] - [facility] BILIRUBIN TOTAL 0.3 0.2 - 1.1 mg/dL 12/03/2016 5:39 PM CDT [employer] [facility] - [facility] ALKALINE PHOSPHATASE 74 35 - 104 U/L 12/03/2016 5:39 PM CDT [facility] [facility] AST 25 <33 U/L 12/03/2016 5:39 PM CDT [employer] [facility] ALT 10 <34 U/L 12/03/2016 5:39 PM CDT [employer] [facility] GFR 44(L) >=60 mL/min/1.7 3 sq meter 12/03/2016 5:39 PM CDT [facility] Comment: eGFR [...] 3 sq meter 12/03/2016 5:39 PM T [facility] ANION GAP 23(H) 8 - 16 mmol/L 12/03/2016 5:39 PM [facility] [employer] [facility] Blood Venipuncture / Unknown 12/03/2016 8:40 AM CDT 12/03/2016 3:15 PM CDT Narrative [facility] - 12/03/2016 5:39 PM CDT Samples containing indocyanine green cause interferences on Total and/or Direct Bilirubin and must not be measured. us Shekhar Johnson MD CHEMISTRY ORDERABLES Final R esult [facility]# [id number] 5 [facility] [place] [address] * (ABNORMAL) CBC WITH DIFFERENTIAL (12/03/2016 8:40 AM CDT) [facility] WBC 4.9 4.0 - 9.8 K/uL 12/03/2016 3:02 PM [facility] LABORATORY [facility] RBC 3.15(L) 3.90 - 4.90 M/uL 12/03/2016 3:02 PM [facility] LABORATORY [facility] HEMOGLOBIN 8.7(L) 11.8 - 14.8 g/dL 12/03/2016 3:02 PM [facility] LABORATORY [facility] HEMATOCRIT 30.0(L) 35.5 - 44.0 % 12/03/2016 3:02 PM CDT [facility]OR[facility] SERVICES - [facility] MCV 95.2 82.0 - 99.0 fL 12/03/2016 3:02 PM CDT [facility] - [facility] MCH 27.6 27.2 - 32.6 pg 12/03/2016 3:02 PM CDT [facility] SERVICES - [facility] MCHC 29.0(L) 31.5 - 35.5 g/dL 12/03/2016 3:02 PM CDT [facility] SERVICES - [facility] RDW 15.8(H) 11.5 - 14.5 % 12/03/2016 3:02 PM CDT [facility] SERVICES - [facility] RDW-STDEV 54.2(H) 37.1 - 48.7 fL 12/03/2016 3:02 PM CDT [facility]ORY SERVICES - [facility] PLATELETS 216 140 - 350 K/uL 12/03/2016 3:02 PM CDT [employer] LABORATORY SERVICES - [facility] MPV 11.7 9.3 - 12.4 fL 12/03/2016 3:02 PM CDT [facility] - [facility] NEUTROPHILS 72 % 12/03/2016 3:02 PM CDT [facility] - [facility] LYMPHOCYTES 17 % 12/03/2016 3:02 PM CDT [facility] - [facility] MONOCYTES 7 % 12/03/2016 3:02 PM CDT [facility] - [facility] EOSINOPHILS 4 % 12/03/2016 3:02 PM CDT [employer] [facility] - . [facility] BASOPHILS 0 % 12/03/2016 3:02 PM CDT [facility] - . [facility] IMMATURE GRANULOCYTES 0 % 12/03/2016 3:02 PM CDT [facility]ORATORY SERVICES - . [facility] NEUTROPHIL ABSOLUTE 3.51 1.90 - 7.00 K/uL 12/03/2016 3:02 PM CDT [facility] - . [facility] LYMPHOCYTE ABSOLUTE 0.84 0.70 - 4.50 K/uL 12/03/2016 3:02 PM CDT [facility]ORATORY SERVICES - . [facility] MONOCYTE ABSOLUTE 0.33 0.10 - 1.30 K/uL 12/03/2016 3:02 PM CDT [employer] [facility] SERVICES - . [facility] EOSINOPHIL ABSOLUTE 0.17 0.00 - 0.70 K/uL 12/03/2016 3:02 PM CDT [facility]ORATORY SERVICES - [facility] BASOPHILS ABSOLUTE 0.02 0.00 - 0.20 K/uL 12/03/2016 3:02 PM CDT [facility]ATORY SERVICES - [facility] IMMATURE GRANULOCYTES ABSOLUTE 0.02 0.00 - 0.03 K/uL 12/03/2016 3:02 PM CDT [facility] SERVICES - [facility] Blood Venipuncture / Unknown 12/03/2016 8:40 AM CDT 12/03/2016 3:00 PM CDT us Shekhar Johnson MD HEMATOLOGY ORDERABLES Final Result [facility]AT[facility] SERVICES [facility]# [id number] [address] [place] [address] documented in this encounter Visit Diagnoses Diagnosis Essential (primary) hypertension Unspecified essential hypertension documented in this encounter
--- OUTSIDE RECORDS SUMMARY | 2024-10-18 14:22 | XMS_ITS | Encounter Summary ---
Author Organization [employer] Address [address] [place] [address] Care Team Providers Care Manager Hydraulic Name Role Phone Unavailable Primary Care Provider Unavailabl e Encounter Details Date Type Department Care Team (Late st Contact Info) Description 06/25/2017 Lab Requisition [facility] General Laboratory Services [place] [address] [place] [address] Shekhar Johnson MD [address] [place] [address] Encounter for general adult medical [...]
--- OUTSIDE RECORDS SUMMARY | 2024-10-18 14:22 | XMS_ITS | Encounter Summary ---
Author Organization [employer] Address [address] [place] [address] Care Team Providers Care Lead Caregiver Name Role Phone Unavailable Primary Care Provider Unavailabl e Encounter Details Date Type Department Care Team (Late st Contact Info) Description 12/06/2016 Lab Requisition [facility] Laboratory Services S [employer] [address] [place] [address] Shekhar Johnson MD [address] [place] [address] Anemia Social History Tobacco Use [...] - 9.8 K/uL 12/06/2016 8:47 AM CDT [facility] SERVICES [facility] RBC 2.93(L) 3.90 - 4.90 M/uL 12/06/2016 8:47 AM CDT [facility] SERVICES [facility] HEMOGLOBIN 8.1(L) 11.8 - 14.8 g/dL 12/06/2016 8:47 AM CDT [facility]ORATORY SERVICES [facility] HEMATOCRIT 27.2(L) 35.5 - 44.0 % 12/06/2016 8:47 AM CDT [facility] MCV 92.8 82.0 - 99.0 fL 12/06/2016 8:47 AM CDT [employer] [facility] - [facility] MCH 27.6 27.2 - 32.6 pg 12/06/2016 8:47 AM CDT [employer] [facility] - [facility] MCHC 29.8(L) 31.5 - 35.5 g/dL 12/06/2016 8:47 AM CDT [employer] [facility] - . [facility] RDW 15.9(H) 11.5 - 14.5 % 12/06/2016 8:47 AM CDT [employer] [facility] - [facility] RDW-STDEV 52.7(H) 37.1 - 48.7 fL 12/06/2016 8:47 AM CDT [employer] [facility] - . [facility] PLATELETS 208 140 - 350 K/uL 12/06/2016 8:47 AM CDT [employer] LABORATORY SERVICES - . [facility] MPV 11.0 9.3 - 12.4 fL 12/06/2016 8:47 AM CDT [employer] [facility] NEUTROPHILS 60 % 12/06/2016 8:47 AM CDT [employer] [facility] LYMPHOCYTES 24 % 12/06/2016 8:47 AM CDT [employer] [facility] MONOCYTES 10 % 12/06/2016 8:47 AM CDT [employer] [facility] EOSINOPHILS 6 % 12/06/2016 8:47 AM CDT [employer] [facility] - . [facility] BASOPHILS 1 % 12/06/2016 8:47 AM CDT [employer] LABORATORY SERVICES - . [facility] IMMATURE GRANULOCYTES 0 % 12/06/2016 8:47 AM CDT [employer] [facility] NEUTROPHIL ABSOLUTE 2.35 1.90 - 7.00 K/uL 12/06/2016 8:47 AM CDT [employer] [facility] LYMPHOCYTE ABSOLUTE 0.94 0.70 - 4.50 K/uL 12/06/2016 8:47 AM CDT [employer] [facility] MONOCYTE ABSOLUTE 0.37 0.10 - 1.30 K/uL 12/06/2016 8:47 AM CDT [employer] [facility] EOSINOPHIL ABSOLUTE 0.22 0.00 - 0.70 K/uL 12/06/2016 8:47 AM CDT [employer] [facility] BASOPHILS ABSOLUTE 0.02 0.00 - 0.20 K/uL 12/06/2016 8:47 AM CDT [facility]ATORY SERVICES - [facility] IMMATURE GRANULOCYTES ABSOLUTE 0.00 0.00 - 0.03 K/uL 12/06/2016 8:47 AM CDT [facility] - [facility] Blood Venipuncture / Unknown 12/06/2016 6:10 AM CDT 12/06/2016 8:22 AM CDT Shekhar Johnson MD HEMATOLOGY ORDERABLES Final Result [facility]# [id number] [address] [place] [address] documented in this encounter Visit Diagnoses Diagnosis Anemia Anemia, unspecified documented in this encounter
--- OUTSIDE RECORDS SUMMARY | 2024-10-18 14:22 | XMS_ITS | Encounter Summary ---
Author Organization [employer] Address [address] [place] [address] Care Team Providers Care Yarn Sizer Name Role Phone Unavailable Primary Care Provider Unavailabl e Encounter Details Date Type Department Care Team (Late st Contact Info) Description 06/09/2017 Lab Requisition [facility] [employer] Laboratory Services S [employer] [address] [place] [address] Shekhar Johnson MD [address] [place] [address] Heart failure (CMS/HCC) Social History [...] - 145 mmol/L 06/09/2017 11:02 AM T [employer] [facility]ATORY SERVICES - [facility] POTASSIUM 3.0(L) 3.5 - 5.0 mmol/L 06/09/2017 11:02 AM CDT [employer] LABORATORY SERVICES - . [facility] CHLORIDE 98 98 - 107 mmol/L 06/09/2017 11:02 AM T [employer] [facility]ORY SERVICES - [facility] CO2 30(H) 22 - 29 mmol/L 06/09/2017 11:02 AM [facility] [employer] [facility] CALCIUM 8.0(L) 8.6 - 10.2 mg/dL 06/09/2017 11:02 AM [facility] LABORATORY [facility] BUN 6(L) 8 - 23 mg/dL 06/09/2017 11:02 AM [facility] CREATININE 0.89 0.51 - 0.95 mg/dL 06/09/2017 11:02 AM [facility] GLUCOSE 72(L) 74 - 99 mg/dL 06/09/2017 11:02 AM [facility] GFR >60 >=60 mL/min/1.7 3 sq meter 06/09/2017 11:02 AM [facility] [employer] Comment: eGFR has not been validated for [...] 3 sq meter 06/09/2017 11:02 AM T [facility] [employer] [facility] ANION GAP 15 8 - 16 mmol/L 06/09/2017 11:02 AM [facility] [employer] Blood Venipuncture / Unknown 06/09/2017 7:00 AM CDT 06/09/2017 9:34 AM CDT us Shekhar Johnson MD CHEMISTRY ORDERABLES Final R esult [facility] [id number] [address] [facility] [place] [address] * (ABNORMAL) BRAIN NATRIURETIC PEPTIDE, BNP OR PROBNP (06/09/2017 7:00 AM CDT) PROBNP, N TERMINAL 1,295(H) <124 pg/mL 06/09/2017 11:02 AM CDT [facility] [employer] [facility] Comment: Reference values for screening purposes based on chief dispatcher's recommendation: Patients less than 75 years: <125 [...] Johnson MD CHEMISTRY ORDERABLES Final R esult [facility] [employer] [facility] CLIA# [id number] [address] [place] [address] documented in this encounter Visit Diagnoses Diagnosis Heart failure (CMS/HCC) Heart failure, unspecified documented in this encounter
--- OUTSIDE RECORDS SUMMARY | 2024-10-18 14:22 | XMS_ITS | Continuity of Care Document ---
Author Organization [facility] Address [id number] [place] [address] [address] [place] [address] Phone Care Team Providers Care Special Deputy Sheriff Name Role Phone January CASTRO, Lukasz Unavailable Unavaila ble Procedures Procedure Date CATARACT SURG W/IOL, 1 STAGE CATARACT SURG W/IOL, 1 STAGE OFFICE/OUTPATIENT VISIT, [facility] OPHTHALMIC BIOMETRY OPHTHALMIC BIOMETRY Advance Directives Directive Yes / No Effective Date File Name No Information Encounters Encounter Description Practice Location Reason(s) For Visit Diagnoses Date Provider Providers Copied on Encounter [facility], [address], [place], [place], [id number], tel:[phone] [facility] No Information 7 January Lal. [address], [address], [place], [place], [id number], [place]. tel:[phone] Referring Provider: Lukasz galeana, [address], [place], [address] . tel:[phone] [facility], [address] [place], [place] [address] [address], [place], [place], [id number], tel:[phone] [facility] No Information 7 January Lal. [address], [address], [place], [place], [address], [place]. tel:[phone] Referring Provider: Lukasz galeana, [address], [place], [address] . tel:[phone] OFFICE/OUTPA TIENT VISIT, NEW [facility], [address], [place], [place], [address], tel:[phone] [facility] No Information 7 January Lal. [address], [address], [place], [place], [address], . tel:[phone] Referring Provider: uLkasz galeana, [address], [place], [address] . tel:[phone] Family History Family Member Type Diagnosis Age At Onset No Information Payers Payer name Insurance type Covered democrat ID Authoriza tion(s) [employer] [facility] CI [id number] Social History Type Description Quantity Date Captured [...]
--- OUTSIDE RECORDS SUMMARY | 2024-10-18 14:22 | XMS_ITS | Encounter Summary ---
Author Organization [employer] Address [address] [place] [address] Care Team Providers Care Hosiery Mater Name Role Phone Unavailable Primary Care Provider Unavailabl e Encounter Details Date Type Department Care Team (Late st Contact Info) Description 06/10/2017 Lab Requisition [facility] [address] [place] [address] Shekhar Johnson MD [address] [place] [address] Chronic obstructive pulmonary disease (CMS/HCC); [...] - 1.70 ng/dL 06/10/2017 10:30 AM CDT [facility] Blood Venipuncture / Unknown 06/10/2017 6:29 AM CDT 06/10/2017 8:35 AM CDT Shekhar Johnson MD CHEMISTRY ORDERABLES Final R esult [facility] CLIA# [id number] [address] [place] [address] * HEMOGLOBIN A1C (06/10/2017 6:29 AM CDT) HEMOGLOBIN A1C 5.6 4.0 - 6.0 % 06/10/2017 11:15 AM CDT [facility] [employer] [facility] EST. AVG GLUCOSE, A1C 114 mg/dL 06/10/2017 11:15 AM CDT [facility] [employer] [facility] Blood Venipuncture / Unknown 06/10/2017 6:29 AM CDT 06/10/2017 8:35 AM CDT Shekhar Johnson MD CHEMISTRY ORDERABLES Final R esult [facility] CLIA# [id number] [address] [place] [address] * TSH (06/10/2017 6:29 AM CDT) TSH 1.08 0.27 - 4.20 uIU/mL 06/10/2017 10:30 AM CDT [facility] [employer] [facility] Blood Venipuncture / Unknown 06/10/2017 6:29 AM CDT 06/10/2017 8:35 AM CDT Shekhar Johnson MD CHEMISTRY ORDERABLES Final R esult [facility] [employer] [facility] CLIA# [id number] [address] [place] [address] * (ABNORMAL) CBC WITH DIFFERENTIAL (06/10/2017 6:29 AM CDT) [facility] WBC 4.7 4.0 - 9.8 K/uL 06/10/2017 9:51 AM CDT [facility] RBC 3.26(L) 3.90 - 4.90 M/uL 06/10/2017 9:51 AM CDT [facility] HEMOGLOBIN 8.3(L) 11.8 - 14.8 g/dL 06/10/2017 9:51 AM CDT [facility] HEMATOCRIT 28.4(L) 35.5 - 44.0 % 06/10/2017 9:51 AM CDT [facility] MCV 87.1 82.0 - 99.0 fL 06/10/2017 9:51 AM CDT [facility] MCH 25.5(L) 27.2 - 32.6 pg 06/10/2017 9:51 AM CDT [facility] MCHC 29.2(L) 31.5 - 35.5 g/dL 06/10/2017 9:51 AM CDT [facility] RDW 16.3(H) 11.5 - 14.5 % 06/10/2017 9:51 AM CDT [facility] RDW-STDEV 51.3(H) 37.1 - 48.7 fL 06/10/2017 9:51 AM CDT [facility] PLATELETS 241 [...] BASOPHILS 0 % 06/10/2017 9:51 AM CDT [facility] IMMATURE GRANULOCYTES 1 % 06/10/2017 9:51 AM CDT [facility] Comment:IG (Immature Granulo cyte) count includes Metamyelocytes, Myelocytes, and Promyelocytes NEUTROPHIL ABSOLUTE 3.24 1.90 - 7.00 K/uL 06/10/2017 9:51 AM CDT [facility] LYMPHOCYTE ABSOLUTE 0.77 0.70 - 4.50 K/uL 06/10/2017 9:51 AM CDT [facility] MONOCYTE ABSOLUTE 0.39 0.10 - 1.30 K/uL 06/10/2017 9:51 AM CDT [facility] EOSINOPHIL ABSOLUTE 0.22 0.00 - 0.70 K/uL 06/10/2017 9:51 AM CDT [facility] BASOPHILS ABSOLUTE 0.02 0.00 - 0.20 K/uL 06/10/2017 9:51 AM CDT [facility] IMMATURE GRANULOCYTES ABSOLUTE 0.03 0.00 - 0.03 K/uL 06/10/2017 9:51 AM T [facility] Blood Venipuncture / Unknown 06/10/2017 6:29 AM CDT 06/10/2017 8:35 AM CDT us Shekhar Johnson MD HEMATOLOGY ORDERABLES Final Result [facility] [facility]# [id number] [facility] [place] [id number] documented in this encounter Visit Diagnoses Diagnosis Chronic obstructive pulmonary disease (CMS/HCC) Chronic airway obstruction, not elsewhere classified Essential (primary) hypertension Unspecified essential hypertension documented in this encounter
--- OUTSIDE RECORDS SUMMARY | 2024-10-18 14:22 | XMS_ITS | Clinical Summary ---
Author Organization [facility] Address [address] [place] [address] Care Team Providers Care Marine Pilot Name Role Phone Unavailable Primary Care Provider [...]
--- OUTSIDE RECORDS SUMMARY | 2024-10-18 14:22 | XMS_ITS | Encounter Summary ---
Author Organization [employer] Address [address] [place] [address] Care Team Providers Care Casting Agent Name Role Phone Unavailable Primary Care Provider Unavailabl e Encounter Details Date Type Department Care Team (Late st Contact Info) Description 06/23/2017 Lab Requisition [facility] [address] [place] [address] Shekhar Johnson MD [address] [place] [address] Heart disease Social History Tobacco [...]
--- OUTSIDE RECORDS SUMMARY | 2024-10-18 14:22 | XMS_ITS | Encounter Summary ---
Author Organization [employer] Address [address] [place] [address] Care Team Providers Care Toll Transmission Worker Name Role Phone Unavailable Primary Care Provider Unavailabl e Encounter Details Date Type Department Care Team (Late st Contact Info) Description 12/13/2016 Lab Requisition [facility] [address] [place] [place] [address] Shekhar Johnson MD [address] [place] [address] Anemia Social History Tobacco Use [...]
[2024-10-18 15:49] LABS: Alanine Aminotransferase 10 U/L (6-35); Albumin Level 3.9 g/dL (3.5-5.1); Alkaline Phosphatase 128 U/L (38-126); Aspartate Amino Transferase 21 U/L (14-36); Bilirubin,Total 0.2 mg/dL (0.2-1.3); Total Protein 7.7 g/dL (6.3-8.2)
== END 2024-10-18 14:19 | disposition home or self-care (01) ==
LOC: ANHLAB 14:19
PROVIDERS: PCP Family Medicine Adolescent Medicine; Visit Provider Nurse Practitioner
DX: R79.89 Other specified abnormal findings of blood chemistry (principal); K80.50 Calculus of bile duct without cholangitis or cholecystitis without obstruction
CPT/HCPCS: 36415; 80076